=== PATIENT | male | born 1960 | race Caucasian/White ===

== ENCOUNTER 2017-08-07 14:17 | Emergency (ER) | payer OTHER ==
[2017-08-07 15:01] LABS: Absolute Lymphocytes (CBC) 1.2 K/uL (0.7-4.9); Absolute Monocytes 0.5 K/uL (0.1-1.3); Absolute Neutrophil 4.8 K/uL (1.8-8.0); Basophils % 1.2 % (0-1.3); Eosinophils % 5.9 % (0-4.4); Hematocrit 44.9 % (39.6-49.0); Lymphocytes % 17.6 % (15.3-44.8); MCH 29.1 pg (27.0-35.0); MCV 88.4 fL (80-100); Monocytes % 7.2 % (3.3-12.3); RBC Red Blood Cell Count 5.07 M/uL (4.33-5.43)
[2017-08-07 15:05] LABS: Protime INR 1.08
[2017-08-07 15:10] LABS: Bicarbonate 28 mEq/L (21-31); Glucose Level 133 mg/dL (65-120); Potassium 3.7 mEq/L (3.6-5.0); Sodium Level 135 mEq/L (135-145)
[2017-08-07 15:16] LABS: ALT/SGPT 26 IU/L (10-60); AST/SGOT 33 IU/L (10-42); Albumin 3.5 g/dL (3.2-5.5); Alkaline Phosphatase 127 IU/L (42-121); BUN Blood Urea Nitrogen 8 mg/dL (6-20); Bilirubin Direct 0.1 mg/dL (0-0.2); Bilirubin Total 1.1 mg/dL (0.3-1.2); Creatine Phosphokinase 30 IU/L (22-269); Magnesium 1.5 mg/dL (1.8-2.5); Protein, Total 8.2 g/dL (6.0-8.3)
[2017-08-07] MEDS ORDERED: NITROGLYCERIN 1 GM PKT TD ONE (15:17)
[2017-08-07] MEDS ORDERED: FUROSEMIDE 100 MG/10 ML VIAL IV ONE (15:18)
[2017-08-07 15:20] LABS: CKMB Creatine Kinase MB 0.7 ng/ml (0.3-4.0)
--- NOTE | 2017-08-07 15:35 | RAD REPORT ---
EXAM DESCRIPTION: RAD - Chest Single View - 08/07/2017 3:27 pm CLINICAL HISTORY: Shortness of breath COMPARISON: 01/11/2017 FINDINGS: Portable technique limits examination quality. The lungs are grossly clear. The heart is upper limit normal in size. No displaced fractures. IMPRESSION: No acute intrathoracic process suspected.
[2017-08-07] MEDS ORDERED: ASPIRIN 81 MG CHEWABLE TABLET ONE (15:48)
[2017-08-07] MEDS ORDERED: Magnesium Sulfate 2gm IVPB 2 G/50 ML BAG IV ONE (15:48)
[2017-08-07 17:03] LABS: Urine Blood NEGATIVE (NEG); Urine Glucose NEGATIVE (NEG); Urine Protein NEGATIVE (NEG); Urine Specific Gravity 1.015 (1.005-1.030)
[2017-08-07 17:20] LABS: Urine Bacteria <20 /HPF (NONE SEEN); Urine RBC <5 /HPF (NONE SEEN)
[2017-08-07 17:21] LABS: Urine Culture Reflex Order NOT NEEDED; Urine Mucus NS /HPF (NONE SEEN)
--- NOTE | 2017-08-07 18:14 | ER ---
Nurse's Notes [facility] Name: Juan J Lin Age: 56 yrs Sex: Male : 1960 Arrival Date: 08/07/2017 Time: 14:21 Bed 16 Private MD: Diagnosis: Urinary tract infection, site not specified;Acute on chronic combined systolic (congestive) and diastolic (congestive) heart failure Presentation: 08/07 14:21 Presenting complaint: Patient states: " I was a little SOB this morning when I woke up. ph Then we went to get some food and I started having chest pressure and the SOB got worse." Pt reports pressure in center of chest that began approx 1 hour ago, SOB and dizziness. Respirations tachypneic at 30 bpm, pt unable to speak in full sentences, hx of CHF. Transition of care: patient was not received from another setting of care. Onset of symptoms was August 07, 2017. Initial Sepsis Screen: Does the patient meet any 2 criteria? No. Patient's initial sepsis screen is negative. Does the patient have a suspected source of infection? No. Patient's initial sepsis screen is negative. Care prior to arrival: None. 14:21 Method Of Arrival: Wheelchair ph 14:21 Acuity: CHARLIE 3 ph Historical: - Allergies: 14:28 Anesthesia- combative reaction; ph - Home Meds: 14:28 atorvastatin 40 mg Oral tab 1 tab once daily [Active]; carvedilol 3.125 mg Oral tab 1 ph tab 2 times per day [Active]; diclofenac sodium 75 mg Oral TbEC 2 times per day [Active]; furosemide 40 mg Oral tab 2 tabs once daily [Active]; isosorbide mononitrate 30 mg Oral Tb24 1 tab once daily [Active]; lisinopril 5 mg Oral tab 1 tab once daily [Active]; metformin 500 mg Oral tr24 1 tab once daily [Active]; potassium chloride 20 mEq Oral TbER 1 tab once daily [Active]; spironolactone 25 mg Oral tab 1 tab once daily [Active]; Tramadol Oral [Active]; - PMHx: 14:28 cardiomegaly; CHF; Hypertension; Myocardial infarction; ph - PSHx: 14:28 Appendectomy; Cholecystectomy; Tonsillectomy; ph - Immunization history:: Adult Immunizations unknown. - Social history:: Smoking status: Patient/guardian denies using tobacco. Screenin:07 Abuse screen: Denies threats or abuse. Denies injuries from another. Nutritional ph screening: No deficits noted. Tuberculosis screening: No symptoms or risk factors identified. Fall Risk No fall in past 12 months (0 pts). No secondary diagnosis (0 pts). IV access (20 points). Ambulatory Aid- None/Bed Rest/Nurse Assist (0 pts). Gait- Weak (10 pts.). Mental Status- Oriented to own ability (0 pts). Total Prescott Fall Scale indicates Low Risk Score (25-44 pts). Fall prevention measures have been instituted. Side Rails Up X 2 Placed close to Nursing Station Frequent Obs/Assesments occuring Family Present and informed to notify staff if they need to leave bedside As available Patient and Family Educated on Fall Prevention Program and strategies. Assessment: 15:08 General: Appears in no apparent distress. uncomfortable, obese, Behavior is calm, ph cooperative, appropriate for age. Pain: Complains of pain in chest Pain does not radiate. Neuro: Level of Consciousness is awake, alert, obeys commands, Oriented to person, place, time, situation. Neuro: Reports dizziness. Cardiovascular: Reports chest pain, diaphoresis, lightheadedness, shortness of breath, Denies nausea, palpitations, vomiting, Capillary refill < 3 seconds Patient's skin is warm and dry. Edema is 4+ to left midcalf, left ankle, left foot, right midcalf, right ankle and right foot w/ anasarca noted to R leg Rhythm is sinus rhythm. Respiratory: Reports shortness of breath at rest Airway is patent Respiratory effort is even, labored, Respiratory pattern is tachypnea Breath sounds with crackles in left posterior lower lobe and right posterior lower lobe. Derm: Skin is intact, Skin is pink, warm \\T\\ dry. Musculoskeletal: Circulation, motion, and sensation intact. Range of motion: intact in all extremities, Swelling present in right leg and left leg. 16:20 Reassessment: Patient appears in no apparent distress at this time. Patient and/or ph family updated on plan of care and expected duration. Pain level reassessed. Patient is alert, oriented x 3, equal unlabored respirations, skin warm/dry/pink. Pt reports that SOB is improving, respirations decreased to 20 bpm, spo2 100% on 2 L, pt placed on oxygen for comfort. 17:30 Reassessment: Patient appears in no apparent distress at this time. Patient and/or ph family updated on plan of care and expected duration. Pain level reassessed. Patient is alert, oriented x 3, equal unlabored respirations, skin warm/dry/pink. Pt reports that chest pain and SOB have significantly improved, pt states, " I am feeling much better than when I got here. I really don't want to stay in the hospital. I'll double up on my fluid pill at home" Pt awaiting discharge. Vital Signs: 14:25 BP 160 / 71; Pulse 94; Resp 30; Temp 98.4(TE); Pulse Ox 99% on R/A; ph 15:30 BP 125 / 64; Pulse 78; Resp 16; Pulse Ox 98% on R/A; ph 16:20 BP 159 / 86; Pulse 75; Resp 20; Pulse Ox 100% on 2 lpm NC; ph 17:21 BP 126 / 77; Pulse 81; Resp 18; Pulse Ox 100% on 2 lpm NC; ph 18:30 BP 132 / 76; Pulse 78; Resp 18; Temp 98.1; Pulse Ox 98% on R/A; ph ED Course: 14:21 Patient arrived in ED. ph 14:25 Triage completed. ph 14:29 Arm band placed on. EKG completed in triage. Results shown to MD. ph 14:35 Kvng Rnadall, BREAK UP WORKER is PHCP. pm1 14:35 Joe Wang MD is Attending Physician. pm1 14:38 Initial lab(s) drawn, by me, EKG done, by ED staff, reviewed by Kvng Randall NP. jb1 Inserted saline lock: 20 gauge in left antecubital area, using aseptic technique. Blood collected. 15:07 Elaina Kamara, RN is Primary Nurse. ph 15:08 Patient has correct armband on for positive identification. Placed in gown. Bed in low ph position. Call light in reach. green end department supervisor on. Pulse ox on. NIBP on. Warm blanket given. 15:24 X-ray completed. Portable x-ray completed in exam room. Patient tolerated procedure ag1 well. 15:27 XRAY Chest (1 view) In Process Unspecified. EDMS 15:44 No provider procedures requiring assistance completed. ph 18:13 Gregorio Leong MD is Referral Physician. pm1 19:00 IV discontinued, intact, bleeding controlled, No redness/swelling at site. Pressure ph dressing applied. Administered Medications: 15:40 Drug: Lasix 80 mg Route: IVP; Site: left antecubital; ph 19:00 Follow up: Urine output 2200 ml; Response: No adverse reaction ph 16:17 Drug: Aspirin 325 mg Route: PO; ph 17:00 Follow up: Response: No adverse reaction ph 16:17 Drug: Magnesium Sulfate 2 grams Route: IVPB; Infused Over: 2 hrs; Site: left ph antecubital; 18:30 Follow up: Response: No adverse reaction; IV Status: Completed infusion ph 18:45 Drug: Rocephin 1 grams Route: IV; Rate: calculated rate; Site: left antecubital; ph 19:00 Follow up: Response: No adverse reaction; IV Status: Completed infusion ph 19:07 Not Given (Hemodynamic Parameters): Nitro-Bid Ointment 2 % 1 inches Transdermal once ph Output: 16:20 Urine: 600ml (Voided); Total: 600ml. ph 17:21 Urine: 800ml (Voided); Total: 1400ml. ph 19:00 Urine: 2200ml; Total: 3600ml. ph Outcome: 18:14 Discharge ordered by . pm1 19:08 Patient left the ED. ph 19:08 Discharged to home via wheelchair, with family. ph 19:08 Condition: improved 19:08 Discharge instructions given to patient, Instructed on discharge instructions, follow up and referral plans. medication usage, Demonstrated understanding of instructions, follow-up care, medications, Prescriptions given X 1. Addendum: 08/12/2017 07:37 Addendum: Culture Results: Positive urine culture. Positive blood culture. Bacteria is i w resistant to, has intermediate sensitivity, or is not tested against prescribed antibiotics. Report given to ONESIMO for further evaluation and then to chief knowledge officer for follow up with patient. Phone call Attempt #1 pt still having urinary symptoms, called in Augmentin 875 mg 1 tab PO BID, #20, no refills, to [facility]. Signatures: Dispatcher [employer] EDMS Yung Crowley jb1 Cherie Hurt RN RN Elaina Kamara RN RN Toshia Bryant ag1 [place], Kvng, BREAK UP WORKER BREAK UP WORKER pm1
--- NOTE | 2017-08-07 18:14 | EDPHYS ---
Physician Documentation [facility] Name: Juan J Lin Age: 56 yrs Sex: Male : 1960 Arrival Date: 08/07/2017 Time: 14:21 Bed 16 Private MD: ED Physician Joe Wang HPI: 08/07 15:00 This 56 yrs old Male presents to ER via Wheelchair with complaints of pm1 Shortness Of Breath, Chest Pain. 15:00 The patient has shortness of breath at rest. Onset: The symptoms/episode began/occurred pm1 this morning. Duration: The symptoms are continuous, and are steadily getting worse. The patient's shortness of breath is aggravated by exertion, is alleviated by nothing. Associated signs and symptoms: Pertinent positives: chest pain, Pertinent negatives: non-productive cough, productive cough, diaphoresis, dizziness, fever, nausea, vomiting. Severity of symptoms: in the emergency department the symptoms are worse. Patient with onset of shortness of breath this AM. Patient typically takes Lasix 40 mg PO BID. Patient last took his Lasix yesterday evening. Patient has noticed a twenty pound weight gain over the past two weeks. . 15:00 Patient reports chest pain onset 1 hour prior to arrival. pm1 Historical: - Allergies: 14:28 Anesthesia- combative reaction; ph - Home Meds: 14:28 atorvastatin 40 mg Oral tab 1 tab once daily [Active]; carvedilol 3.125 mg Oral tab 1 ph tab 2 times per day [Active]; diclofenac sodium 75 mg Oral TbEC 2 times per day [Active]; furosemide 40 mg Oral tab 2 tabs once daily [Active]; isosorbide mononitrate 30 mg Oral Tb24 1 tab once daily [Active]; lisinopril 5 mg Oral tab 1 tab once daily [Active]; metformin 500 mg Oral tr24 1 tab once daily [Active]; potassium chloride 20 mEq Oral TbER 1 tab once daily [Active]; spironolactone 25 mg Oral tab 1 tab once daily [Active]; Tramadol Oral [Active]; - PMHx: 14:28 cardiomegaly; CHF; Hypertension; Myocardial infarction; ph - PSHx: 14:28 Appendectomy; Cholecystectomy; Tonsillectomy; ph - Immunization history:: Adult Immunizations unknown. - Social history:: Smoking status: Patient/guardian denies using tobacco. ROS: 15:00 Constitutional: Negative for fever, chills, and weight loss, Eyes: Negative for injury, pm1 pain, redness, and discharge, ENT: Negative for injury, pain, and discharge, Neck: Negative for injury, pain, and swelling. 15:00 Abdomen/GI: Negative for abdominal pain, nausea, vomiting, diarrhea, and constipation, Back: Negative for injury and pain. 15:00 MS/Extremity: Negative for injury and deformity, Skin: Negative for injury, rash, and discoloration, Neuro: Negative for headache, weakness, numbness, tingling, and seizure. 15:00 Cardiovascular: Positive for chest pain, edema, Negative for palpitations. 15:00 Respiratory: Positive for shortness of breath, Negative for cough, sputum production, wheezing. 15:00 : Positive for burning with urination, Negative for penile pain, testicular pain Exam: 15:00 Constitutional: This is a well developed, well nourished patient who is awake, alert, pm1 and in no acute distress. Head/Face: Normocephalic, atraumatic. Eyes: Pupils equal round and reactive to light, extra-ocular motions intact. Lids and lashes normal. Conjunctiva and sclera are non-icteric and not injected. Cornea within normal limits. Periorbital areas with no swelling, redness, or edema. ENT: Nares patent. No nasal discharge, no septal abnormalities noted. Tympanic membranes are normal and external auditory canals are clear. Oropharynx with no redness, swelling, or masses, exudates, or evidence of obstruction, uvula midline. Mucous membranes moist. Neck: Trachea midline, no thyromegaly or masses palpated, and no cervical lymphadenopathy. Supple, full range of motion without nuchal rigidity, or vertebral point tenderness. No Meningismus. Chest/axilla: Normal chest wall appearance and motion. Nontender with no deformity. No lesions are appreciated. Cardiovascular: Regular rate and rhythm with a normal S1 and S2. No gallops, murmurs, or rubs. No pulse deficits. 15:00 Abdomen/GI: Soft, non-tender, with normal bowel sounds. No distension or tympany. No guarding or rebound. No evidence of tenderness throughout. Back: No spinal tenderness. No costovertebral tenderness. Full range of motion. Skin: Warm, dry with normal turgor. Normal color with no rashes, no lesions, and no evidence of cellulitis. MS/ Extremity: Pulses equal, no cyanosis. Neurovascular intact. Full, normal range of motion. 15:00 Respiratory: the patient does not display signs of respiratory distress, Respirations: no acute changes, Breath sounds: are clear throughout, no bronchial sounds, no rales, rhonchi, no wheezing. 15:00 Neuro: Orientation: is normal, Mentation: is normal, Motor: moves all fours. Vital Signs: 14:25 BP 160 / 71; Pulse 94; Resp 30; Temp 98.4(TE); Pulse Ox 99% on R/A; ph 15:30 BP 125 / 64; Pulse 78; Resp 16; Pulse Ox 98% on R/A; ph 16:20 BP 159 / 86; Pulse 75; Resp 20; Pulse Ox 100% on 2 lpm NC; ph 17:21 BP 126 / 77; Pulse 81; Resp 18; Pulse Ox 100% on 2 lpm NC; ph 18:30 BP 132 / 76; Pulse 78; Resp 18; Temp 98.1; Pulse Ox 98% on R/A; ph MDM: 14:36 Patient medically screened. pm1 17:58 Data reviewed: vital signs. pm1 18:07 Counseling: I had a detailed discussion with the patient and/or guardian regarding: the pm1 historical points, exam findings, and any diagnostic results supporting the discharge/admit diagnosis, lab results, radiology results, the need for further work-up and treatment in the hospital. 18:08 Refusal of service: The patient/guardian displays adequate decision making capability pm1 and despite a detailed discussion of alternatives, benefits, risks, and consequences refuses: Admission to the hospital for further work-up and treatment, Patient symptoms of chest pain and shortness of breath have resolved with Lasix medication. Recommended admission to the patient but he wants to go home. He said that he will return if he has any problems. Advised the patient to take additional Lasix for the next following 2-3 days and to follow up with his doctor. 08/07 14:36 Order name: Basic Metabolic Panel; Complete Time: 15:26 pm1 08/07 14:36 Order name: BNP; Complete Time: 15:26 pm1 08/07 14:36 Order name: CBC with Diff; Complete Time: 15:26 pm1 08/07 14:36 Order name: Ckmb; Complete Time: 15:26 pm08/07 14:36 Order name: CPK; Complete Time: 15:26 pm1 08/07 14:36 Order name: LFT's; Complete Time: 15:26 pm1 08/07 14:36 Order name: Magnesium; Complete Time: 15:26 pm08/07 14:36 Order name: PT-INR; Complete Time: 15:26 pm1 08/07 14:36 Order name: Ptt, Activated; Complete Time: 15:26 pm08/07 14:36 Order name: Troponin (emerg Dept Use Only); Complete Time: 15:26 pm1 08/07 14:42 Order name: Blood Culture Adult (2) jb1 08/07 16:18 Order name: Urine Culture ph 08/07 16:18 Order name: Urine Microscopic Only; Complete Time: 17:21 ph 08/07 16:26 Order name: Urine Dipstick--Ancillary (enter results); Complete Time: 17:21 eb 08/07 14:36 Order name: XRAY Chest (1 view); Complete Time: 16:13 pm1 08/07 14:36 Order name: EKG; Complete Time: 14:37 pm08/07 14:36 Order name: Cardiac monitoring; Complete Time: 14:38 pm08/07 14:36 Order name: EKG - Nurse/Tech; Complete Time: 14:38 pm08/07 14:36 Order name: IV Saline Lock; Complete Time: 14:38 pm08/07 14:36 Order name: Labs collected and sent; Complete Time: 14:38 pm08/07 14:36 Order name: O2 Per Protocol; Complete Time: 14:38 pm08/07 14:36 Order name: O2 Sat Monitoring; Complete Time: 14:38 pm08/07 14:36 Order name: Urine Dipstick-Ancillary (obtain specimen); Complete Time: 16:17 pm1 Administered Medications: 15:40 Drug: Lasix 80 mg Route: IVP; Site: left antecubital; ph 19:00 Follow up: Urine output 2200 ml; Response: No adverse reaction ph 16:17 Drug: Aspirin 325 mg Route: PO; ph 17:00 Follow up: Response: No adverse reaction ph 16:17 Drug: Magnesium Sulfate 2 grams Route: IVPB; Infused Over: 2 hrs; Site: left ph antecubital; 18:30 Follow up: Response: No adverse reaction; IV Status: Completed infusion ph 18:45 Drug: Rocephin 1 grams Route: IV; Rate: calculated rate; Site: left antecubital; ph 19:00 Follow up: Response: No adverse reaction; IV Status: Completed infusion ph 19:07 Not Given (Hemodynamic Parameters): Nitro-Bid Ointment 2 % 1 inches Transdermal once ph Disposition: 08/08 09:15 Co-signature as Attending Physician, Joe Wang MD I agree with the assessment and ivy plan of care. Disposition: 08/07/17 18:14 Discharged to Home. Impression: Acute on chronic combined systolic (congestive) and diastolic (congestive) heart failure, Urinary tract infection, site not specified. - Condition is Stable. - Discharge Instructions: Heart Failure, Urinary Tract Infection. - Prescriptions for Bactrim DS 800- 160 mg Oral Tablet - take 1 tablet by ORAL route every 12 hours for 10 days; 20 tablet. - Medication Reconciliation Form, Thank You Letter, Antibiotic Education form. - Follow up: Emergency Department; When: As needed; Reason: Worsening of condition. Follow up: Private Physician; When: 2 - 3 days; Reason: Recheck today's complaints, Continuance of care, Re-evaluation by your physician. Follow up: Gregorio Leong MD; When: 2 - 3 days; Reason: Recheck today's complaints, Continuance of care, Re-evaluation by your physician. - Problem is new. - Symptoms have improved. Signatures: Dispatcher [employer] Joe Macdonald MD MD cha Hall, Patricia, RN RN ph Kvng Randall, RICHELLE WORK CAR OPERATOR pm1
[2017-08-07] MEDS ORDERED: CEFTRIAXONE/SWI 1gm 1 GM/10 ML SYR ONE (18:47)
[2017-08-07 19:13] VITALS: TEMP 98.4
[2017-08-07 19:15] VITALS: O2SAT 100
[2017-08-07 19:17] VITALS: BP 126/77
--- NOTE | 2017-08-08 07:05 | EKG ---
Test Date: 2017-08-07 Test Time: 14:44:21 Child Care: JUAN MEASUREMENT RESULTS: Intervals: Rate: 76 NE: 156 QRSD: 86 QT: 410 QTc: 461 [place]: P: 66 NE: 156 QRS: 30 T: 39 INTERPRETIVE STATEMENTS: Normal sinus rhythm Normal ECG Compared to ECG 01/11/2017 18:40:09 Sinus tachycardia no longer present Atrial premature complex(es) no longer present ST (T wave) deviation no longer present Electronically Signed On 08-08-17 07:04:23 CDT by Gregorio Leong
== END 2017-08-07 19:08 | disposition home or self-care (01) ==
LOC: ER 14:17
DX: I50.43 Acute on chronic combined systolic (congestive) and diastolic (congestive) heart failure (principal); N39.0 Urinary tract infection, site not specified; I10 Essential (primary) hypertension; I25.2 Old myocardial infarction
CPT/HCPCS: 36415; 71045; 80048; 80076; 82550; 82553; 83735; 83880; 84484; 85025; 85610; 85730; 87040 ×2; 87077; 87086; 87088; 87186; 87205 ×2; 93005; 96365; 96366; 96375; 99285; J0696; J3475; 81003; 81015

== ENCOUNTER 2017-10-22 11:15 | Inpatient (IN) | payer OTHER ==
[2017-10-22 13:13] LABS: Absolute Lymphocytes (CBC) 1.5 K/uL (0.7-4.9); Absolute Monocytes 0.6 K/uL (0.1-1.3); Absolute Neutrophil 3.6 K/uL (1.8-8.0); Basophils % 0.8 % (0-1.3); Eosinophils % 6.7 % (0-4.4); Hematocrit 40.5 % (39.6-49.0); Lymphocytes % 24.2 % (15.3-44.8); MCH 30.6 pg (27.0-35.0); MCV 90.6 fL (80-100); MPV 9.1 fL (7.6-11.3); Monocytes % 9.3 % (3.3-12.3); RBC Red Blood Cell Count 4.47 M/uL (4.33-5.43)
[2017-10-22 13:17] LABS: Protime INR 1.12
[2017-10-22 13:31] LABS: ALT/SGPT 25 U/L (12-78); AST/SGOT 26 U/L (15-37); Albumin 2.7 g/dL (3.4-5.0); Alkaline Phosphatase 130 U/L (45-117); BUN Blood Urea Nitrogen 11 mg/dL (7-18); Bicarbonate 29 mmol/L (21-32); Bilirubin Direct 0.1 mg/dL (0-0.2); Bilirubin Total 0.5 mg/dL (0.2-1.0); Glucose Level 131 mg/dL (74-106); Lipase 130 U/L (73-393); Protein, Total 7.8 g/dL (6.4-8.2); Sodium Level 142 mmol/L (136-145)
[2017-10-22] MEDS ORDERED: FENTANYL CITR 100 MCG/2 ML ONE (13:43)
[2017-10-22] MEDS ORDERED: NA CHLORIDE 0.9% 500 ML ONE (13:43)
[2017-10-22 14:06] LABS: Urine Blood NEGATIVE (NEG); Urine Glucose NEGATIVE (NEG); Urine Protein TRACE (NEG); Urine Specific Gravity >1.030 (1.005-1.030)
--- NOTE | 2017-10-22 14:24 | ER ---
Nurse's Notes [facility] Name: Juan J Lin Age: 57 yrs Sex: Male : 1960 Arrival Date: 10/22/2017 Time: 11:19 Bed 17 Private MD: Herminio Alves R Diagnosis: Cellulitis of right lower limb Presentation: 10/22 12:04 Presenting complaint: Patient states: was discharged from [facility] 2 weeks ago for sepsis, iw had infection in right leg, pt states he has had low grade temp since yesterday and increased drainage from right leg. Transition of care: patient was not received from another setting of care. Care prior to arrival: None. 12:04 Method Of Arrival: Wheelchair iw 12:04 Acuity: CHARLIE 3 iw 12:40 Risk Assessment: Do you want to hurt yourself or someone else? Patient reports no em desire to harm self or others. Initial Sepsis Screen: Does the patient meet any 2 criteria? No. Patient's initial sepsis screen is negative. Does the patient have a suspected source of infection? No. Patient's initial sepsis screen is negative. 12:40 Onset of symptoms was October 20, 2017. em Historical: - Allergies: 12:40 Anesthesia- combative reaction; em - Home Meds: 12:40 glipizide 5 mg Oral tab [Active]; atorvastatin 40 mg Oral tab 1 tab once daily em [Active]; carvedilol 3.125 mg Oral tab 1 tab 2 times per day [Active]; diclofenac sodium 75 mg Oral TbEC 2 times per day [Active]; furosemide 40 mg Oral tab 2 tabs once daily [Active]; isosorbide mononitrate 30 mg Oral Tb24 1 tab once daily [Active]; metformin 500 mg Oral tr24 1 tab once daily [Active]; lisinopril 5 mg Oral tab 1 tab once daily [Active]; potassium chloride 20 mEq Oral TbER 1 tab once daily [Active]; spironolactone 25 mg Oral tab 1 tab once daily [Active]; Tramadol Oral [Active]; - PMHx: 12:40 cardiomegaly; CHF; Hypertension; Myocardial infarction; em - Immunization history:: Adult Immunizations up to date. - Social history:: Smoking status: Patient/guardian denies using tobacco. - Ebola Screening: : Patient negative for fever greater than or equal to 101.5 degrees Fahrenheit, and additional compatible Ebola Virus Disease symptoms Patient denies exposure to infectious person Patient denies travel to an Ebola-affected area in the 21 days before illness onset. Screenin:40 Abuse screen: Denies threats or abuse. Nutritional screening: No deficits noted. em Tuberculosis screening: No symptoms or risk factors identified. Fall Risk None identified. Assessment: 12:40 General: Appears in no apparent distress. uncomfortable, Behavior is calm, cooperative. em Pain: Complains of pain in left knee Pain currently is 10 out of 10 on a pain scale. Neuro: Level of Consciousness is awake, alert, obeys commands, Oriented to person, place, time, situation. Cardiovascular: Capillary refill is > 3 seconds Patient's skin is warm and dry. Edema is 2+ to left midcalf, left ankle, left foot, right midcalf, right ankle and right foot. Respiratory: Airway is patent Respiratory effort is even, unlabored, Respiratory pattern is regular, symmetrical. : Urine is clear. Derm: Skin is intact, Skin is normal. Musculoskeletal: Range of motion: intact in all extremities, Swelling present in right leg and left leg. 13:00 Reassessment: Patient appears in no apparent distress at this time. I agree with above iw assessment by Domingo Dubois LVN. 13:30 Reassessment: Patient appears in no apparent distress at this time. Patient and/or em family updated on plan of care and expected duration. Pain level reassessed. Patient is alert, oriented x 3, equal unlabored respirations, skin warm/dry/pink. request something for pain, GABRIEL Diaz notified. 14:30 Reassessment: Patient appears in no apparent distress at this time. Patient and/or em family updated on plan of care and expected duration. Pain level reassessed. Patient is alert, oriented x 3, equal unlabored respirations, skin warm/dry/pink. 16:24 Reassessment: Patient appears in no apparent distress at this time. Patient and/or em family updated on plan of care and expected duration. Pain level reassessed. Patient is alert, oriented x 3, equal unlabored respirations, skin warm/dry/pink. Patient states feeling better. 17:26 Reassessment: Patient appears in no apparent distress at this time. Patient and/or em family updated on plan of care and expected duration. Pain level reassessed. Patient is alert, oriented x 3, equal unlabored respirations, skin warm/dry/pink. wrapped miguel. legs with Kerlix x 3. Vital Signs: 12:05 BP 193 / 90; Pulse 99; Resp 20 S; Pulse Ox 98% on R/A; Weight 208.65 kg; Height 6 ft. iw (182.88 cm); Pain 10/10; 12:33 BP 140 / 71; Pulse 77; Resp 16; Pulse Ox 99% on R/A; Pain 10/10; em 13:00 BP 143 / 72; Pulse 82; Resp 18; Pulse Ox 96% on R/A; em 14:18 BP 141 / 68; Pulse 93; Resp 15; Pulse Ox 97% on R/A; em 15:00 BP 118 / 62; Pulse 84; Resp 16; Pulse Ox 99% on R/A; em 16:19 BP 136 / 71; Pulse 93; Resp 18; Temp 98.6; Pulse Ox 98% ; Pain 0/10; mg2 17:28 BP 150 / 51; Pulse 87; Resp 16; Pulse Ox 98% on R/A; em 12:05 Body Mass Index 62.39 (208.65 kg, 182.88 cm) iw ED Course: 11:19 Patient arrived in ED. rg4 11:19 Herminio Alves MD is Private Physician. rg4 11:41 Joe Mackay PA is PHCP. cp 11:41 Shahriar Borjas MD is Attending Physician. cp 12:05 Triage completed. iw 12:05 Cherie Hurt, RN is Primary Nurse. iw 12:05 Arm band placed on. iw 12:22 Domingo Dubois LVN is Primary Nurse. em 12:40 Patient has correct armband on for positive identification. Placed in gown. Bed in low em position. Call light in reach. Side rails up X2. 12:55 Initial lab(s) drawn, by me, sent to lab. Inserted saline lock: 20 gauge in right em antecubital area, using aseptic technique. Blood collected. 12:55 First set of blood cultures drawn by me. em 14:22 Evert Lopes MD is Hospitalizing Provider. cp 14:55 Ultrasound completed. Other: tech diff. exam . sg3 16:26 No provider procedures requiring assistance completed. em 16:47 Patient admitted, IV remains in place. em Administered Medications: 13:50 Drug: fentaNYL (PF) 50 mcg Route: IVP; Site: right antecubital; iw 16:06 Follow up: Response: No adverse reaction; Pain is decreased em 13:52 Drug: NS 0.9% 500 ml Route: IV; Rate: bolus; Site: right antecubital; em 16:06 Follow up: IV Status: Completed infusion; IV Intake: 500ml em Intake: 16:06 IV: 500ml; Total: 500ml. em Outcome: 14:23 Decision to Hospitalize by Provider. cp 16:47 Admitted to Med/surg accompanied by tech, via stretcher, room 206, with chart, Report em called to MESFIN Fritz 16:47 Condition: good 16:47 Instructed on the need for admit, Demonstrated understanding of instructions. 17:29 Patient left the ED. em Signatures: Domingo Dubois, EXPORT CLERK EXPORT CLERK em Cherie Hurt, RN RN iw Joe Mackay, PA PA Manju Hare rg4 Honey Blackwoodah sg3 Brendan Bah, RN RN mg2
--- NOTE | 2017-10-22 14:24 | EDPHYS ---
Physician Documentation [facility] Name: Juan J Lin Age: 57 yrs Sex: Male : 1960 Arrival Date: 10/22/2017 Time: 11:19 Bed 17 Private MD: Herminio Alves R ED Physician Shahriar Borjas HPI: 10/22 12:40 This 57 yrs old Male presents to ER via Wheelchair with complaints of LEG cp DISCHARGE, Fever, Weakness. 12:40 The patient presents with pain, that is chronic, swelling, tenderness, increased cp drainage from chronic wounds on right lower leg. Onset: The symptoms/episode began/occurred gradually. Associated signs and symptoms: Pertinent positives: fever, warmth. Treatment prior to arrival includes: анна wrap. Patient reports recent hospitalization 2-3 weeks ago for infection of lower extremities. Reports finishing prescribed oral antibiotic and f/u appt with pcp yesterday who recommended patient be readmitted for IV antibiotics. Historical: - Allergies: 12:40 Anesthesia- combative reaction; em - Home Meds: 12:40 glipizide 5 mg Oral tab [Active]; atorvastatin 40 mg Oral tab 1 tab once daily em [Active]; carvedilol 3.125 mg Oral tab 1 tab 2 times per day [Active]; diclofenac sodium 75 mg Oral TbEC 2 times per day [Active]; furosemide 40 mg Oral tab 2 tabs once daily [Active]; isosorbide mononitrate 30 mg Oral Tb24 1 tab once daily [Active]; metformin 500 mg Oral tr24 1 tab once daily [Active]; lisinopril 5 mg Oral tab 1 tab once daily [Active]; potassium chloride 20 mEq Oral TbER 1 tab once daily [Active]; spironolactone 25 mg Oral tab 1 tab once daily [Active]; Tramadol Oral [Active]; - PMHx: 12:40 cardiomegaly; CHF; Hypertension; Myocardial infarction; em - Immunization history:: Adult Immunizations up to date. - Social history:: Smoking status: Patient/guardian denies using tobacco. - Ebola Screening: : Patient negative for fever greater than or equal to 101.5 degrees Fahrenheit, and additional compatible Ebola Virus Disease symptoms Patient denies exposure to infectious person Patient denies travel to an Ebola-affected area in the 21 days before illness onset. ROS: 12:45 Constitutional: Negative for body aches, chills, fever, poor PO intake. cp 12:45 Eyes: Negative for injury, pain, redness, and discharge. cp 12:45 ENT: Negative for drainage from ear(s), ear pain, sore throat, difficulty swallowing, difficulty handling secretions. 12:45 Cardiovascular: Positive for edema, Negative for chest pain, palpitations. 12:45 Respiratory: Negative for cough, shortness of breath, wheezing. 12:45 Abdomen/GI: Negative for abdominal pain, nausea, vomiting, and diarrhea. 12:45 Skin: Positive for drainage from right lower leg. 12:45 Neuro: Positive for general weakness, Negative for altered mental status, headache. 12:45 All other systems are negative. Exam: 12:50 Constitutional: The patient appears in no acute distress, alert, awake, cp non-diaphoretic, non-toxic, well developed, well nourished, morbid obesity 12:50 Head/Face: Normocephalic, atraumatic. cp 12:50 Eyes: Pupils equal round and reactive to light, extra-ocular motions intact. Lids and lashes normal. Conjunctiva and sclera are non-icteric and not injected. Cornea within normal limits. Periorbital areas with no swelling, redness, or edema. ENT: Nares patent. No nasal discharge, no septal abnormalities noted. Tympanic membranes are normal and external auditory canals are clear. Oropharynx with no redness, swelling, or masses, exudates, or evidence of obstruction, uvula midline. Mucous membranes moist. Neck: Trachea midline, no thyromegaly or masses palpated, and no cervical lymphadenopathy. Supple, full range of motion without nuchal rigidity, or vertebral point tenderness. No Meningismus. 12:50 Chest/axilla: Inspection: normal, Palpation: is normal, no crepitus, no tenderness. 12:50 Cardiovascular: Rate: normal, Rhythm: regular, Edema: pedal edema, that is marked, ankle edema, that is marked, JVD: is not appreciated. 12:50 Respiratory: the patient does not display signs of respiratory distress, Respirations: normal, no use of accessory muscles, no retractions, no splinting, no tachypnea, labored breathing, is not present, Breath sounds: are clear throughout, no decreased breath sounds, no stridor, no wheezing. 12:50 Abdomen/GI: Inspection: obese Bowel sounds: active, all quadrants, Palpation: abdomen is soft and non-tender, in all quadrants, rebound tenderness, is not appreciated, voluntary guarding, is not appreciated, involuntary guarding, is not appreciated. 12:50 Back: pain, is absent, ROM is normal. 12:50 Neuro: Orientation: to person, place \T\ time. Mentation: lucid, able to follow commands, Cerebellar function: is grossly normal, Motor: moves all fours, strength is normal, Sensation: is normal. 12:50 Skin: cellulitis, that is moderate, irregular, on the right lower leg and right ankle cp and right foot, noted chronic wounds with drainage. 13:41 ECG was reviewed by the Attending Physician. cp Vital Signs: 12:05 BP 193 / 90; Pulse 99; Resp 20 S; Pulse Ox 98% on R/A; Weight 208.65 kg; Height 6 ft. iw (182.88 cm); Pain 10/10; 12:33 BP 140 / 71; Pulse 77; Resp 16; Pulse Ox 99% on R/A; Pain 10/10; em 13:00 BP 143 / 72; Pulse 82; Resp 18; Pulse Ox 96% on R/A; em 14:18 BP 141 / 68; Pulse 93; Resp 15; Pulse Ox 97% on R/A; em 15:00 BP 118 / 62; Pulse 84; Resp 16; Pulse Ox 99% on R/A; em 16:19 BP 136 / 71; Pulse 93; Resp 18; Temp 98.6; Pulse Ox 98% ; Pain 0/10; mg2 17:28 BP 150 / 51; Pulse 87; Resp 16; Pulse Ox 98% on R/A; em 12:05 Body Mass Index 62.39 (208.65 kg, 182.88 cm) iw MDM: 11:43 Patient medically screened. cp 13:00 Differential diagnosis: cellulitis, DVT, abscess, sepsis. cp 14:05 Data reviewed: vital signs, nurses notes, lab test result(s), EKG. cp 14:05 Test interpretation: by ED physician or midlevel provider: ECG. cp 14:19 Physician consultation: Evert Lopes MD was called at 14:19, was contacted at 14:19, cp regarding admission, to the medical/surgical unit. 10/22 12:36 Order name: Wound Culture: right lower leg cp 10/22 12:36 Order name: Basic Metabolic Panel; Complete Time: 13:34 cp 10/22 13:34 Interpretation: Normal except: CL 108; GLUC 131. cp 10/22 12:36 Order name: Blood Culture Adult (2) cp 10/22 12:36 Order name: CBC with Diff; Complete Time: 13:34 cp 10/22 13:35 Interpretation: Normal except: RDW 15.6; EOSINOPHIL % 6.7. cp 10/22 12:36 Order name: Lactate; Complete Time: 13:34 cp 10/22 13:35 Interpretation: LAC 1.6; Reviewed. 10/22 12:36 Order name: LFT's; Complete Time: 13:34 cp 10/22 13:34 Interpretation: Normal except: ALK 130; ALB 2.7; GLOB 5.1; A/G 0.5. 10/22 12:36 Order name: Lipase; Complete Time: 13:34 cp 10/22 12:36 Order name: Procalcitonin; Complete Time: 14:02 cp 10/22 14:02 Interpretation: Procalcitonin < 0.05; Reviewed. 10/22 12:36 Order name: Protime (+inr); Complete Time: 13:34 cp 10/22 14:03 Interpretation: Normal except: PT 13.2. cp 10/22 12:36 Order name: Ptt, Activated; Complete Time: 13:34 cp 10/22 13:55 Order name: Urine Dipstick--Ancillary (enter results); Complete Time: 14:20 ag 10/22 14:20 Interpretation: Normal except: USPGR >1.030; UESTR TRACE. cp 10/22 14:16 Order name: US Extremity Venous W Compression [place] cp 10/22 16:34 Order name: US EDMS 10/22 12:36 Order name: Accucheck; Complete Time: 14:32 cp 10/22 12:36 Order name: Cardiac monitoring; Complete Time: 13:04 cp 10/22 12:36 Order name: EKG - Nurse/Tech; Complete Time: 13:39 cp 10/22 12:36 Order name: IV Saline Lock - Large Bore; Complete Time: 13:04 cp 10/22 12:36 Order name: Labs collected and sent; Complete Time: 13:04 cp 10/22 12:36 Order name: O2 Per Protocol; Complete Time: 13:04 cp 10/22 12:36 Order name: O2 Sat Monitoring; Complete Time: 13:04 cp 10/22 12:36 Order name: Urine Dipstick-Ancillary (obtain specimen); Complete Time: 14:32 cp 10/22 16:12 Order name: Vital Signs: please update to include temp; Complete Time: 16:23 cp EC:41 Rate is 78 beats/min. Rhythm is regular. [place] interval is normal. QRS interval is normal. cp QT interval is normal. No ST changes noted. Interpreted by me. Reviewed by me. Administered Medications: 13:50 Drug: fentaNYL (PF) 50 mcg Route: IVP; Site: right antecubital; iw 16:06 Follow up: Response: No adverse reaction; Pain is decreased em 13:52 Drug: NS 0.9% 500 ml Route: IV; Rate: bolus; Site: right antecubital; em 16:06 Follow up: IV Status: Completed infusion; IV Intake: 500ml em Disposition: 10/22/17 14:23 Hospitalization ordered by Evert Lopes for Observation. Preliminary diagnosis is Cellulitis of right lower limb. - Bed requested for Telemetry/MedSurg (observation). - Status is Observation. em - Condition is Stable. - Problem is new. - Symptoms are unchanged. UTI on Admission? No Addendum: 10/30/2017 20:44 Co-signature as Attending Physician, Shahriar Borjas MD I agree with the assessment and k plan of care. Signatures: Dispatcher [employer] Yumiko Garcia RN RN Shahriar Borjas MD MD [facility] Domingo Dubois, TECHNICAL MAINTENANCE TECHNICIAN TECHNICAL MAINTENANCE TECHNICIAN em Cherie Hurt RN RN iw Joe Mackay PA PA cp Corrections: (The following items were deleted from the chart) 10/22 16:28 14:23 Hospitalization Ordered by Evert Lopes MD for Observation. Preliminary diagnosis is Cellulitis of right lower limb. Bed requested for Telemetry/MedSurg (observation). Status is Observation. Condition is Stable. Problem is new. Symptoms are unchanged. UTI on Admission? No. cp 16:30 16:28 10/22/2017 14:23 Hospitalization Ordered by Evert Lopes MD for Observation. dw Preliminary diagnosis is Cellulitis of right lower limb. Bed requested for Telemetry/MedSurg (observation). Status is Observation. Condition is Stable. Problem is new. Symptoms are unchanged. UTI on Admission? No. dw 17:29 16:30 10/22/2017 14:23 Hospitalization Ordered by Evert Lopes MD for Observation. em Preliminary diagnosis is Cellulitis of right lower limb. Bed requested for Telemetry/MedSurg (observation). Status is Observation. Condition is Stable. Problem is new. Symptoms are unchanged. UTI on Admission? No. dw
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
[2017-10-22] MEDS ORDERED: Pharmacy Consult 1 EA XX PRN (14:55)
[2017-10-22] MEDS ORDERED: SPIRONOLACTONE 25 MG TABLET PO PRN (14:56)
[2017-10-22] MEDS ORDERED: FUROSEMIDE 40 MG/4 ML VIAL IV ONE (15:03)
--- NOTE | 2017-10-22 16:34 | RAD REPORT ---
EXAM DESCRIPTION: VASExtrem Venous W Compress Bil10/22/2017 3:26 pm CLINICAL HISTORY: Bilateral leg swelling COMPARISON: December 2016 FINDINGS: The evaluation of left popliteal and posterior tibial veins is very limited secondary to b sophia habitus. The common femoral, superficial femoral, right popliteal tibial veins bilaterally are compressible a nd demonstrate augmentation. Doppler demonstrates good flow. IMPRESSION: No gross evidence evidence of deep venous thrombosis involving either lower extremity.
[2017-10-22] MEDS ORDERED: VANCOMYCIN 2 GM in NA CHLORIDE 0.9% 500 ML IVPB SCH (17:00)
[2017-10-22] MEDS ORDERED: FUROSEMIDE 40 MG TABLET PO SCH (17:00)
[2017-10-22] MEDS ORDERED: FUROSEMIDE 40 MG/4 ML VIAL ONE (17:09)
[2017-10-22] MEDS: METFORMIN HCL 500 MG TAB PO SCH (17:58)
[2017-10-22] MEDS: PIPER/TAZO/NS 4.5gm 4.5 GM/100 ML BAG IVPB SCH (17:58)
[2017-10-22] MEDS: ENOXAPARIN 40 MG/0.4 ML SQ SCH (17:59)
[2017-10-22] MEDS ORDERED: NA CHLORIDE 0.9% 250 ML IV ONE (20:00)
[2017-10-22] MEDS ORDERED: ONDANSETRON 4 MG/2 ML VIAL IV PRN (20:10)
[2017-10-22] MEDS ORDERED: METFORMIN HCL PO SCH (21:00)
[2017-10-22] MEDS: ATORVASTATIN 40 MG TAB PO SCH (21:02)
--- NOTE | 2017-10-23 00:11 | P.PN ---
Date of Service: 10/22/17 Patient apparently became nauseated, vomiting, hypotensive and diaphoretic while on vancomycin. Listed as an allergy. We will DC and we will start clindamycin pending cultures and sensitivites.
[2017-10-23] MEDS: CLINDAMYCIN PHOSPHATE 600 MG in NA CHLORIDE 0.9% 50 ML IV SCH ×3 (01:00→16:37)
[2017-10-23] MEDS: PIPER/TAZO/NS 4.5gm 4.5 GM/100 ML BAG IVPB SCH ×4 (01:12→17:36)
[2017-10-23] MEDS ORDERED: CLINDAMYCIN IV 150 MG/ML (6 mL) VIAL ONE (01:47)
[2017-10-23] MEDS ORDERED: NA CHLORIDE 0.9% 50 ML ONE (01:49)
[2017-10-23] MEDS: HYDROCODONE/APAP 5/325 MG TAB PO PRN ×2 (05:21→21:22)
[2017-10-23] MEDS: FAMOTIDINE 20 MG TAB PO SCH (08:31)
[2017-10-23] MEDS: METFORMIN HCL 500 MG TAB PO SCH ×2 (08:31→16:36)
[2017-10-23] MEDS: ISOSORBIDE MONO SR 30 MG TAB PO SCH (08:31)
[2017-10-23] MEDS: FUROSEMIDE 40 MG/4 ML VIAL IV SCH (08:32)
[2017-10-23] MEDS: ASPIRIN 81 MG CHEWABLE TABLET PO SCH (08:32)
[2017-10-23] MEDS ORDERED: LISINOPRIL 5 MG TAB PO SCH (09:00)
[2017-10-23] MEDS ORDERED: SPIRONOLACTONE 25 MG TABLET PO ONE (09:52)
--- NOTE | 2017-10-23 10:03 | P.PN ---
Subjective Date of Service: 10/23/17 Chief Complaint: Right-sided leg pain and discharge Condition stable no significant changes patient intolerant to vancomycin still having mal odor drainage from the right leg, patient in negative fluid balance Review of Systems is unable to be obtained Physical Examination - Vital Signs Temperature: 98.6 F Blood Pressure: 112/54 Pulse: 88 Respirations: 28 Pulse Ox (%): 95 - Physical Exam General: Alert, Oriented x3 HEENT: Atraumatic, Other Respiratory: Clear to auscultation bilaterally Cardiovascular: Normal S1 S2, Edema (Patient has significant lymphedema no change) Gastrointestinal: Normal bowel sounds, Soft and benign - Studies Laboratory Data (last 24 hrs) 10/22/17 12:55: PT 13.2 H, INR 1.12, APTT 26.8 10/22/17 12:55: WBC 6.2, Hgb 13.7, Hct 40.5, Plt Count 264 10/22/17 12:55: Sodium 142, Potassium 4.0, BUN 11, Creatinine 0.70, Glucose 131 H, Total Bilirubin 0.5, AST 26, ALT 25, Alkaline Phosphatase 130 H, Lipase 130 Assessment & Plan - Problems (Diagnosis) (1) Cellulitis Current Visit: No Status: Acute Plan: Patient is 57 years of age admitted with cellulitis and lymphedema continue with IV Lasix spironolactone antibiotics cultures are pending vital signs are all stable labs reviewed med list reconciled Qualifiers: Site of cellulitis: extremity Laterality: right
--- NOTE | 2017-10-23 10:56 | EKG ---
Test Date: 2017-10-22 Test Time: 13:34:37 Clinical Case Manager: ALHAJI MEASUREMENT RESULTS: Intervals: Rate: 78 TX: 150 QRSD: 90 QT: 412 QTc: 469 [place]: P: 59 TX: 150 QRS: 25 T: 45 INTERPRETIVE STATEMENTS: Normal sinus rhythm Normal ECG Compared to ECG 08/07/2017 14:44:21 No significant changes Electronically Signed On 10-23-17 10:55:21 CDT by Gregorio Leong
--- NOTE | 2017-10-23 12:02 | RAD REPORT ---
EXAM DESCRIPTION: RAD - Chest Single View - 10/23/2017 6:12 am CLINICAL HISTORY: chf Chest pain. COMPARISON: Chest Single View dated 08/07/2017; Chest Single View dated 01/11/2017; CHEST SINGLE VIEW dated 01/01/2008 FINDINGS: Portable technique limits examination quality. Moderate bilateral pulmonary opacities are seen likely representing pulmonary edema. The heart is mod erately enlarged. No displaced fractures. IMPRESSION: Moderate CHF/ volume overload pattern.
[2017-10-23] MEDS: PREGABALIN 75 MG CAP PO SCH ×2 (14:56→21:22)
[2017-10-23 15:08] LABS: Hematocrit 37.9 % (39.6-49.0); MCH 30.9 pg (27.0-35.0); MPV 9.2 fL (7.6-11.3); RBC Red Blood Cell Count 4.21 M/uL (4.33-5.43)
[2017-10-23 15:20] LABS: Potassium 3.7 mmol/L (3.5-5.1)
--- NOTE | 2017-10-23 16:28 | RAD REPORT ---
EXAM DESCRIPTION: RAD - Knee Left 2 View - 10/23/2017 3:27 pm CLINICAL HISTORY: fall Pain and swelling. COMPARISON: No comparisons FINDINGS: Soft tissue edema throughout the leg seen. No acute fracture or dislocation appreciated. S mall patellar spurs seen. No intra-articular joint fluid.
[2017-10-23] MEDS: glipiZIDE 5 MG TAB PO SCH (16:36)
[2017-10-23] MEDS: ENOXAPARIN 40 MG/0.4 ML SQ SCH (17:36)
[2017-10-23] MEDS: SPIRONOLACTONE 25 MG TABLET PO SCH (21:21)
[2017-10-23] MEDS: ATORVASTATIN 40 MG TAB PO SCH (21:21)
[2017-10-24] MEDS: PIPER/TAZO/NS 4.5gm 4.5 GM/100 ML BAG IVPB SCH ×4 (00:16→17:48)
[2017-10-24] MEDS: CLINDAMYCIN PHOSPHATE 600 MG in NA CHLORIDE 0.9% 50 ML IV SCH (00:16)
[2017-10-24] MEDS: glipiZIDE 5 MG TAB PO SCH (08:00)
[2017-10-24] MEDS ORDERED: LISINOPRIL 20 MG TAB PO SCH (09:00)
[2017-10-24] MEDS: FUROSEMIDE 40 MG/4 ML VIAL IV SCH ×3 (09:00→21:44)
--- NOTE | 2017-10-24 09:48 | P.PN ---
Subjective Date of Service: 10/24/17 Primary Care Provider: Dr. Neville Chief Complaint: Right-sided leg pain and discharge Subjective: Other (Patient with pain to the lower extremities. Patient fell this past weekend.) Physical Examination - Vital Signs Temperature: 97 F Blood Pressure: 106/54 Pulse: 63 Respirations: 22 Pulse Ox (%): 96 - Physical Exam General: Alert, In no apparent distress, Oriented x3, Cooperative HEENT: Atraumatic Neck: Supple Respiratory: Crackles/rales (Mild crackles to the bases), Other (Nasal cannula in place) Cardiovascular: Normal pulses, Regular rate/rhythm Gastrointestinal: Normal bowel sounds, Soft and benign, Non-distended, No tenderness, No masses, No rebound, No guarding, Other (Morbid obesity) Musculoskeletal: No contractures, Other (Patient reported some mild pain to the left knee.) Integumentary: Other (Chronic lymphedema to the lower extremities bilateral. Erythema noted to the right lower extremity. Malodorous odor noted. Patient morbidly obese.) Neurological: Normal speech, Normal strength at 5/5 x4 extr, Normal tone, Normal affect - Studies Microbiology Data (last 24 hrs): 10/22/17 13:00 Wound - Other Gram Stain - Final 10/22/17 13:00 Wound - Other Culture & Sensitivity - Final Klebsiella Pneumoniae Pseudomonas Aeruginosa Medications List Reviewed: Yes Assessment & Plan - Problems (Diagnosis) (1) COPD (chronic obstructive pulmonary disease) Current Visit: Yes Status: Chronic Plan: Will wean off oxygen. Will provide COPD medication. Qualifiers: COPD type: chronic bronchitis Chronic bronchitis type: unspecified Qualified Code(s): J42 - Unspecified chronic bronchitis (2) CHF (congestive heart failure) Current Visit: Yes Status: Acute Plan: Acute on chronic CHF. Will continue with diuretic therapy. Will adjust IV Lasix. Patient also on Aldactone. Will monitor input and output closely. Will weigh daily. May need to make further adjustments to medications. Will wean off oxygen. Qualifiers: Heart failure type: diastolic Heart failure chronicity: acute on chronic Qualified Code(s): I50.33 - Acute on chronic diastolic (congestive) heart failure (3) Cellulitis Onset Date: 10/24/17 Current Visit: Yes Status: Acute Plan: Right lower extremity cellulitis noted. Patient with also chronic lymphedema. Malodorous smell noted. Will have wound therapy consulted for aggressive wound care. Patient is morbidly obese. Wound culture positive for Klebsiella pneumoniae and Pseudomonas aeruginosa. Patient had a reaction to vancomycin over the weekend. This was discontinued. Patient currently on Zosyn. Will discontinue clindamycin due to current wound cultures. Will continue with Zosyn IV. Patient will likely need long-term IV antibiotic therapy possibly for up to 2-4 weeks. Infectious disease consulted. Patient will require aggressive wound care. Will recommend long-term acute care facility placement for IV antibiotic therapy, aggressive wound care therapy and lymphedema evaluation/treatment. Patient requires at least 3 people for dressing changes. Because of his morbid obesity wound care will be difficult to do at a skilled facility. Patient may also require hyperbaric treatment. Will discuss with social work associate for transfer to long-term acute care facility. Qualifiers: Site of cellulitis: extremity Laterality: right (4) Chronic acquired lymphedema Onset Date: 01/12/17 Current Visit: No Status: Chronic Plan: Patient will require lymphedema treatment. Continue with diuretic therapy. Will place on fluid restriction. (5) Hyperlipidemia Current Visit: No Status: Chronic Plan: Continue home medication. Qualifiers: Hyperlipidemia type: unspecified Qualified Code(s): E78.5 - Hyperlipidemia , unspecified (6) Hypertension Onset Date: 01/12/17 Current Visit: No Status: Chronic Plan: Continue home medication. Will monitor and adjust appropriately. Qualifiers: Hypertension type: essential hypertension Qualified Code(s): I10 - Essential (primary) hypertension (7) Morbid obesity Onset Date: 01/12/17 Current Visit: No Status: Chronic Plan: Lifestyle modification education provided. (8) Obesity hypoventilation syndrome Onset Date: 01/12/17 Current Visit: No Status: Chronic Plan: Will wean off oxygen. (9) Type 2 diabetes mellitus Onset Date: 01/12/17 Current Visit: No Status: Chronic Plan: Last A1c 6.1. Will recheck A1c. Will provide a sliding scale. Will discontinue glipizide due to risk of hypoglycemia. Will continue with metformin. Qualifiers: Diabetes mellitus fpc insulin use: without fpc use Diabetes mellitus complication status: with skin complications Diabetes mellitus complication detail: with other skin complication Qualified Code(s): E11.628 - Type 2 diabetes mellitus with other skin complications (10) Left knee pain Current Visit: Yes Status: Acute Plan: X-ray shows no fracture. Will monitor closely. Will physical therapy evaluate. Qualifiers: Chronicity: acute Qualified Code(s): M25.562 - Pain in left knee (11) Diabetic neuropathy Current Visit: Yes Status: Chronic Plan: Continue with medication. Qualifiers: Diabetes mellitus type: type 2 Diabetes mellitus complication detail: diabetic polyneuropathy Qualified Code(s): E11.42 - Type 2 diabetes mellitus with diabetic polyneuropathy (12) GERD (gastroesophageal reflux disease) Current Visit: Yes Status: Chronic Plan: Continue with medication. Qualifiers: Esophagitis presence: esophagitis presence not specified Qualified Code(s) : K21.9 - Gastro-esophageal reflux disease without esophagitis Discharge Plan: LTAC Plan to discharge in: 24 Hours - Code Status/Comfort Care Code Status Assessed: Yes (Patient full code.) Code Status: Full Code Time Spent Managing Pts Care (In Minutes): 55
[2017-10-24] MEDS ORDERED: IPRATROPIUM BROM 0.5MG/2.5ML NEB PRN ×2 (09:53→14:00)
[2017-10-24] MEDS ORDERED: ALBUTEROL 2.5 MG/3 ML NEB SOL NEB PRN ×2 (09:53→14:00)
[2017-10-24] MEDS: PREGABALIN 75 MG CAP PO SCH ×3 (10:00→21:42)
[2017-10-24] MEDS: METFORMIN HCL 500 MG TAB PO SCH ×2 (10:01→17:44)
[2017-10-24] MEDS: ASPIRIN 81 MG CHEWABLE TABLET PO SCH (10:01)
[2017-10-24] MEDS: FAMOTIDINE 20 MG TAB PO SCH (10:02)
[2017-10-24] MEDS: SPIRONOLACTONE 25 MG TABLET PO SCH ×2 (10:02→21:44)
[2017-10-24] MEDS: ISOSORBIDE MONO SR 30 MG TAB PO SCH (10:57)
[2017-10-24] MEDS: LISINOPRIL 20 MG TAB PO SCH (10:58)
[2017-10-24 11:30] LABS: Thyroid Stimulating Hormone 2.92 uIU/mL (0.36-3.74)
[2017-10-24 15:11] LABS: Hematocrit 36.2 % (39.6-49.0); MCH 30.3 pg (27.0-35.0); MCV 90.1 fL (80-100); MPV 9.5 fL (7.6-11.3); RBC Red Blood Cell Count 4.02 M/uL (4.33-5.43)
[2017-10-24 15:13] LABS: Potassium 3.8 mmol/L (3.5-5.1)
[2017-10-24] MEDS ORDERED: POTASSIUM 25 MEQ EFFERV TAB PO ONE (17:00)
[2017-10-24] MEDS: ENOXAPARIN 40 MG/0.4 ML SQ SCH (17:43)
[2017-10-24] MEDS: ARFORMOTEROL TARTRATE 15 MCG/2 ML VIAL.NEB NEB SCH (19:52)
[2017-10-24] MEDS: HYDROCODONE/APAP 5/325 MG TAB PO PRN (21:43)
[2017-10-24] MEDS: ATORVASTATIN 40 MG TAB PO SCH (21:44)
[2017-10-25] MEDS: PIPER/TAZO/NS 4.5gm 4.5 GM/100 ML BAG IVPB SCH ×4 (00:49→18:06)
[2017-10-25 05:51] LABS: Absolute Lymphocytes (CBC) 1.5 K/uL (0.7-4.9); Absolute Monocytes 0.6 K/uL (0.1-1.3); Absolute Neutrophil 3.9 K/uL (1.8-8.0); Basophils % 0.9 % (0-1.3); Eosinophils % 9.4 % (0-4.4); Hematocrit 36.2 % (39.6-49.0); MCH 30.3 pg (27.0-35.0); MCV 90.3 fL (80-100); MPV 9.5 fL (7.6-11.3); Monocytes % 8.9 % (3.3-12.3); RBC Red Blood Cell Count 4.01 M/uL (4.33-5.43)
[2017-10-25 05:58] LABS: BUN Blood Urea Nitrogen 15 mg/dL (7-18); Bicarbonate 33 mmol/L (21-32); Glucose Level 113 mg/dL (74-106); Potassium 3.7 mmol/L (3.5-5.1); Sodium Level 141 mmol/L (136-145)
[2017-10-25 05:59] LABS: Magnesium 1.9 mg/dL (1.8-2.4)
[2017-10-25] MEDS ORDERED: POTASSIUM 25 MEQ EFFERV TAB PO ONE (06:13)
[2017-10-25] MEDS: ARFORMOTEROL TARTRATE 15 MCG/2 ML VIAL.NEB NEB SCH ×2 (08:00→20:30)
--- NOTE | 2017-10-25 09:45 | P.PN ---
Subjective Date of Service: 10/25/17 Primary Care Provider: Dr. Neville Chief Complaint: Right-sided leg pain and discharge Subjective: Improving Physical Examination - Vital Signs Temperature: 97.0 F Blood Pressure: 133/68 Pulse: 73 Respirations: 20 Pulse Ox (%): 96 - Physical Exam General: Alert, In no apparent distress, Oriented x3, Cooperative HEENT: Atraumatic Neck: Supple Respiratory: Clear to auscultation bilaterally, Normal air movement Cardiovascular: Normal pulses, Regular rate/rhythm Gastrointestinal: Normal bowel sounds, Soft and benign, Non-distended, No masses , No rebound, No guarding Integumentary: Other (Lymphedema noted to the lower extremities. Wrappings in place.) Neurological: Normal speech, Normal strength at 5/5 x4 extr, Normal tone, Normal affect - Studies Microbiology Data (last 24 hrs): 10/22/17 13:00 Wound - Other Gram Stain - Final 10/22/17 13:00 Wound - Other Culture & Sensitivity - Final Klebsiella Pneumoniae Pseudomonas Aeruginosa Medications List Reviewed: Yes Assessment & Plan - Problems (Diagnosis) (1) COPD (chronic obstructive pulmonary disease) Current Visit: Yes Status: Chronic Plan: Will wean off oxygen. Will provide COPD medication. Qualifiers: COPD type: chronic bronchitis Chronic bronchitis type: unspecified Qualified Code(s): J42 - Unspecified chronic bronchitis (2) CHF (congestive heart failure) Current Visit: Yes Status: Acute Plan: Acute on chronic CHF. Will continue with diuretic therapy. Continue with diuretic therapy. Patient on Lasix and Aldactone. Will need to monitor weight closely. Awaiting approval for the patient to go to a long-term care facility placement for aggressive wound care and IV antibiotic therapy. Qualifiers: Heart failure type: diastolic Heart failure chronicity: acute on chronic Qualified Code(s): I50.33 - Acute on chronic diastolic (congestive) heart failure (3) Cellulitis Onset Date: 10/24/17 Current Visit: Yes Status: Acute Plan: Right lower extremity cellulitis noted. Patient with also chronic lymphedema. Continue wound therapy. Spoke with wound care yesterday. Patient needs aggressive wound care. Patient requires at least 3 individuals to help with wound care changes. Patient morbidly obese. Wound culture positive for Klebsiella pneumoniae and Pseudomonas aeruginosa. Patient currently on Zosyn. Patient will likely need long-term IV antibiotic therapy possibly for up to 2- 4 weeks. Infectious disease consulted but will not be available until Tuesday. Will recommend long-term acute care facility placement for IV antibiotic therapy, aggressive wound care therapy and lymphedema evaluation/ treatment. Patient requires at least 3 people for dressing changes. Because of his morbid obesity wound care will be difficult to do at a skilled facility. Patient may also require hyperbaric treatment. Care discussed with his PCP will also recommends long-term acute care facility placement. Patient has failed outpatient treatment with home health. PCP will discuss with insurance. Qualifiers: Site of cellulitis: extremity Laterality: right (4) Chronic acquired lymphedema Onset Date: 01/12/17 Current Visit: No Status: Chronic Plan: Patient will require lymphedema treatment. Continue with diuretic therapy and fluid restriction. (5) Hyperlipidemia Current Visit: No Status: Chronic Plan: Continue home medication. Qualifiers: Hyperlipidemia type: unspecified Qualified Code(s): E78.5 - Hyperlipidemia , unspecified (6) Hypertension Onset Date: 01/12/17 Current Visit: No Status: Chronic Plan: Continue home medication. Will monitor and adjust appropriately. Qualifiers: Hypertension type: essential hypertension Qualified Code(s): I10 - Essential (primary) hypertension (7) Morbid obesity Onset Date: 01/12/17 Current Visit: No Status: Chronic Plan: Lifestyle modification education provided. (8) Obesity hypoventilation syndrome Onset Date: 01/12/17 Current Visit: No Status: Chronic Plan: Will wean off oxygen. (9) Type 2 diabetes mellitus Onset Date: 01/12/17 Current Visit: No Status: Chronic Plan: Last A1c 6.1. Now A1c 8.1. Will provide a sliding scale. Continue with metformin. Qualifiers: Diabetes mellitus termite exterminator insulin use: without termite exterminator use Diabetes mellitus complication status: with skin complications Diabetes mellitus complication detail: with other skin complication Qualified Code(s): E11.628 - Type 2 diabetes mellitus with other skin complications (10) Left knee pain Current Visit: Yes Status: Acute Plan: X-ray shows no fracture. Will monitor closely. Will physical therapy evaluate. Qualifiers: Chronicity: acute Qualified Code(s): M25.562 - Pain in left knee (11) Diabetic neuropathy Current Visit: Yes Status: Chronic Plan: Continue with medication. Qualifiers: Diabetes mellitus type: type 2 Diabetes mellitus complication detail: diabetic polyneuropathy Qualified Code(s): E11.42 - Type 2 diabetes mellitus with diabetic polyneuropathy (12) GERD (gastroesophageal reflux disease) Current Visit: Yes Status: Chronic Plan: Continue with medication. Qualifiers: Esophagitis presence: esophagitis presence not specified Qualified Code(s) : K21.9 - Gastro-esophageal reflux disease without esophagitis (13) Anemia Current Visit: Yes Status: Chronic Plan: Likely of chronic disease. Will monitor closely. Qualifiers: Anemia type: other cause Other causes of anemia: chronic disease, other Qualified Code(s): D63.8 - Anemia in other chronic diseases classified elsewhere Discharge Plan: LTAC Plan to discharge in: 24 Hours Time Spent Managing Pts Care (In Minutes): 55
[2017-10-25] MEDS: PREGABALIN 75 MG CAP PO SCH ×3 (10:34→21:18)
[2017-10-25] MEDS: METFORMIN HCL 500 MG TAB PO SCH ×2 (10:34→18:06)
[2017-10-25] MEDS: ASPIRIN 81 MG CHEWABLE TABLET PO SCH (10:35)
[2017-10-25] MEDS: FAMOTIDINE 20 MG TAB PO SCH (10:35)
[2017-10-25] MEDS: ISOSORBIDE MONO SR 30 MG TAB PO SCH (10:35)
[2017-10-25] MEDS: SPIRONOLACTONE 25 MG TABLET PO SCH ×2 (10:35→21:19)
[2017-10-25] MEDS: LISINOPRIL 20 MG TAB PO SCH (10:36)
[2017-10-25] MEDS: FUROSEMIDE 40 MG/4 ML VIAL IV SCH ×2 (10:36→21:00)
[2017-10-25] MEDS: COLLAGENASE 30 GM OINTMENT TOP SCH (10:37)
[2017-10-25] MEDS: HYDROCODONE/APAP 5/325 MG TAB PO PRN ×3 (10:48→21:19)
[2017-10-25] MEDS: ENOXAPARIN 40 MG/0.4 ML SQ SCH (18:12)
[2017-10-25] MEDS: ATORVASTATIN 40 MG TAB PO SCH (21:18)
[2017-10-25] MEDS ORDERED: NA CHLORIDE 0.9% 100 ML ONE (23:53)
[2017-10-26 05:17] LABS: Absolute Lymphocytes (CBC) 1.3 K/uL (0.7-4.9); Absolute Monocytes 0.5 K/uL (0.1-1.3); Absolute Neutrophil 3.6 K/uL (1.8-8.0); Basophils % 0.7 % (0-1.3); Eosinophils % 8.2 % (0-4.4); Lymphocytes % 22.6 % (15.3-44.8); MCH 30.7 pg (27.0-35.0); MCV 89.9 fL (80-100); MPV 9.4 fL (7.6-11.3); Monocytes % 8.4 % (3.3-12.3)
[2017-10-26 05:32] LABS: BUN Blood Urea Nitrogen 16 mg/dL (7-18); Bicarbonate 30 mmol/L (21-32); Glucose Level 103 mg/dL (74-106); Magnesium 1.7 mg/dL (1.8-2.4); Potassium 3.7 mmol/L (3.5-5.1); Sodium Level 142 mmol/L (136-145)
[2017-10-26] MEDS ORDERED: MAGNESIUM SULFATE 1 gm IVPB 1 GM/100 ML BAG IV ONE (05:35)
[2017-10-26] MEDS ORDERED: POTASSIUM CL SA 10 MEQ TAB PO ONE (05:36)
[2017-10-26] MEDS: PIPER/TAZO/NS 4.5gm 4.5 GM/100 ML BAG IVPB SCH ×5 (06:15→23:49)
[2017-10-26] MEDS: FUROSEMIDE 40 MG/4 ML VIAL IV SCH ×2 (06:16→18:07)
[2017-10-26] MEDS: ARFORMOTEROL TARTRATE 15 MCG/2 ML VIAL.NEB NEB SCH ×2 (07:50→19:47)
[2017-10-26] MEDS: COLLAGENASE 30 GM OINTMENT TOP SCH (09:00)
[2017-10-26] MEDS ORDERED: Magnesium Sulfate 1gm IVPB 1 GM/50 ML BAG IV ONE (09:45)
[2017-10-26] MEDS: PREGABALIN 75 MG CAP PO SCH ×3 (10:04→22:21)
[2017-10-26] MEDS: METFORMIN HCL 500 MG TAB PO SCH ×2 (10:04→18:07)
[2017-10-26] MEDS: FAMOTIDINE 20 MG TAB PO SCH (10:04)
[2017-10-26] MEDS: ASPIRIN 81 MG CHEWABLE TABLET PO SCH (10:04)
[2017-10-26] MEDS: ISOSORBIDE MONO SR 30 MG TAB PO SCH (10:05)
[2017-10-26] MEDS: SPIRONOLACTONE 25 MG TABLET PO SCH ×2 (10:05→22:20)
[2017-10-26] MEDS: LISINOPRIL 20 MG TAB PO SCH (10:05)
[2017-10-26] MEDS: HYDROCODONE/APAP 5/325 MG TAB PO PRN ×3 (10:09→22:20)
--- NOTE | 2017-10-26 11:13 | P.PN ---
Subjective Date of Service: 10/26/17 Primary Care Provider: Dr. Neville Chief Complaint: Right-sided leg pain and discharge Subjective: Improving (Patient doing better.) Physical Examination - Vital Signs Temperature: 97.4 F Blood Pressure: 176/75 Pulse: 76 Respirations: 20 Pulse Ox (%): 94 - Physical Exam General: Alert, In no apparent distress, Oriented x3, Cooperative HEENT: Atraumatic Neck: Supple Respiratory: Clear to auscultation bilaterally, Normal air movement Cardiovascular: Normal pulses, Regular rate/rhythm Gastrointestinal: Normal bowel sounds, Soft and benign, Non-distended, No tenderness, No masses, No rebound, No guarding, Other (Morbid obesity) Musculoskeletal: No tenderness, No warmth Integumentary: Other (Erythema to the lower extremities improved. Patient with chronic lymphedema.) Neurological: Normal speech, Normal strength at 5/5 x4 extr, Normal tone, Normal affect - Studies Medications List Reviewed: Yes Assessment & Plan - Problems (Diagnosis) (1) COPD (chronic obstructive pulmonary disease) Current Visit: Yes Status: Chronic Plan: Will wean off oxygen. Will provide COPD medication. Patient stable this time. Patient on nasal cannula. Qualifiers: COPD type: chronic bronchitis Chronic bronchitis type: unspecified Qualified Code(s): J42 - Unspecified chronic bronchitis (2) CHF (congestive heart failure) Current Visit: Yes Status: Acute Plan: Acute on chronic CHF. Will continue with diuretic therapy. Continue with diuretic therapy. Patient on Lasix and Aldactone. Will need to monitor weight closely. Original weight 460 now down to 430. Will continue with fluid restriction. Awaiting approval for the patient to go to a long-term care facility placement for aggressive wound care and IV antibiotic therapy. Qualifiers: Heart failure type: diastolic Heart failure chronicity: acute on chronic Qualified Code(s): I50.33 - Acute on chronic diastolic (congestive) heart failure (3) Cellulitis Onset Date: 10/24/17 Current Visit: Yes Status: Acute Plan: Right lower extremity cellulitis noted. This has improved with wound care and IV antibiotic therapy. Patient with also chronic lymphedema. Spoke with wound care yesterday. Patient continues to need aggressive wound care. Patient requires at least 3 individuals to help with wound care changes. Patient morbidly obese. Wound culture positive for Klebsiella pneumoniae and Pseudomonas aeruginosa. Patient currently on Zosyn. Patient will likely need long-term IV antibiotic therapy possibly for up to 2-4 weeks. Infectious disease consulted but will not be available until Tuesday. Will recommend long- term acute care facility placement for IV antibiotic therapy, aggressive wound care therapy and lymphedema evaluation/treatment. Because of his morbid obesity wound care will be difficult to do at a skilled facility. Patient has felt home health and outpatient therapy. Care discussed with his PCP who also recommends long-term acute care facility placement. PCP will discuss with insurance. Await approval for long-term acute care facility placement Qualifiers: Site of cellulitis: extremity Laterality: right (4) Chronic acquired lymphedema Onset Date: 01/12/17 Current Visit: No Status: Chronic Plan: Patient will require lymphedema treatment. Continue with diuretic therapy and fluid restriction. (5) Hyperlipidemia Current Visit: No Status: Chronic Plan: Continue home medication. Qualifiers: Hyperlipidemia type: unspecified Qualified Code(s): E78.5 - Hyperlipidemia , unspecified (6) Hypertension Onset Date: 01/12/17 Current Visit: No Status: Chronic Plan: Continue home medication. Will monitor and adjust appropriately. Qualifiers: Hypertension type: essential hypertension Qualified Code(s): I10 - Essential (primary) hypertension (7) Morbid obesity Onset Date: 01/12/17 Current Visit: No Status: Chronic Plan: Lifestyle modification education provided. (8) Obesity hypoventilation syndrome Onset Date: 01/12/17 Current Visit: No Status: Chronic Plan: Will wean off oxygen. (9) Type 2 diabetes mellitus Onset Date: 01/12/17 Current Visit: No Status: Chronic Plan: Last A1c 6.1. Now A1c 8.1. Will provide a sliding scale. Continue with metformin. Qualifiers: Diabetes mellitus prison insulin use: without prison use Diabetes mellitus complication status: with skin complications Diabetes mellitus complication detail: with other skin complication Qualified Code(s): E11.628 - Type 2 diabetes mellitus with other skin complications (10) Left knee pain Current Visit: Yes Status: Acute Plan: X-ray shows no fracture. Will monitor closely. Will physical therapy evaluate. Qualifiers: Chronicity: acute Qualified Code(s): M25.562 - Pain in left knee (11) Diabetic neuropathy Current Visit: Yes Status: Chronic Plan: Continue with medication. Qualifiers: Diabetes mellitus type: type 2 Diabetes mellitus complication detail: diabetic polyneuropathy Qualified Code(s): E11.42 - Type 2 diabetes mellitus with diabetic polyneuropathy (12) GERD (gastroesophageal reflux disease) Current Visit: Yes Status: Chronic Plan: Continue with medication. Qualifiers: Esophagitis presence: esophagitis presence not specified Qualified Code(s) : K21.9 - Gastro-esophageal reflux disease without esophagitis (13) Anemia Current Visit: Yes Status: Chronic Plan: Likely of chronic disease. Will monitor closely. Qualifiers: Anemia type: other cause Other causes of anemia: chronic disease, other Qualified Code(s): D63.8 - Anemia in other chronic diseases classified elsewhere Discharge Plan: LTAC Plan to discharge in: 24 Hours Time Spent Managing Pts Care (In Minutes): 55
[2017-10-26] MEDS: ENOXAPARIN 40 MG/0.4 ML SQ SCH (18:07)
[2017-10-26] MEDS: ATORVASTATIN 40 MG TAB PO SCH (22:21)
[2017-10-27] MEDS: PIPER/TAZO/NS 4.5gm 4.5 GM/100 ML BAG IVPB SCH ×4 (05:55→23:58)
[2017-10-27] MEDS: FUROSEMIDE 40 MG/4 ML VIAL IV SCH ×2 (05:55→17:35)
[2017-10-27 06:21] LABS: Absolute Lymphocytes (CBC) 1.7 K/uL (0.7-4.9); Absolute Monocytes 0.6 K/uL (0.1-1.3); Absolute Neutrophil 3.5 K/uL (1.8-8.0); Eosinophils % 6.6 % (0-4.4); Hematocrit 37.4 % (39.6-49.0); MCH 31.1 pg (27.0-35.0); MCV 89.6 fL (80-100); MPV 9.6 fL (7.6-11.3); Monocytes % 8.8 % (3.3-12.3); RBC Red Blood Cell Count 4.18 M/uL (4.33-5.43)
[2017-10-27 06:25] LABS: BUN Blood Urea Nitrogen 14 mg/dL (7-18); Bicarbonate 32 mmol/L (21-32); Glucose Level 103 mg/dL (74-106); Potassium 3.7 mmol/L (3.5-5.1); Sodium Level 142 mmol/L (136-145)
[2017-10-27] MEDS ORDERED: POTASSIUM CL SA 10 MEQ TAB PO ONE (06:34)
[2017-10-27] MEDS: ARFORMOTEROL TARTRATE 15 MCG/2 ML VIAL.NEB NEB SCH ×2 (08:01→19:50)
[2017-10-27] MEDS: COLLAGENASE 30 GM OINTMENT TOP SCH (09:00)
[2017-10-27] MEDS: SPIRONOLACTONE 25 MG TABLET PO SCH ×2 (09:02→20:40)
[2017-10-27] MEDS: PREGABALIN 75 MG CAP PO SCH ×3 (09:02→20:40)
[2017-10-27] MEDS: ISOSORBIDE MONO SR 30 MG TAB PO SCH (09:02)
[2017-10-27] MEDS: METFORMIN HCL 500 MG TAB PO SCH ×2 (09:02→17:35)
[2017-10-27] MEDS: ASPIRIN 81 MG CHEWABLE TABLET PO SCH (09:02)
[2017-10-27] MEDS: LISINOPRIL 20 MG TAB PO SCH (09:02)
[2017-10-27] MEDS: FAMOTIDINE 20 MG TAB PO SCH (09:02)
[2017-10-27] MEDS: HYDROCODONE/APAP 5/325 MG TAB PO PRN ×2 (09:05→20:39)
--- NOTE | 2017-10-27 10:24 | P.PN ---
Subjective Date of Service: 10/27/17 Primary Care Provider: Dr. Neville Chief Complaint: Right-sided leg pain and discharge Subjective: Other (Patient doing well this time. Lower extremity edema and erythema improved.) Physical Examination - Vital Signs Temperature: 97.2 F Blood Pressure: 175/83 Pulse: 80 Respirations: 18 Pulse Ox (%): 97 - Physical Exam General: Alert, In no apparent distress, Oriented x3, Cooperative HEENT: Atraumatic Neck: Supple Respiratory: Clear to auscultation bilaterally, Normal air movement Cardiovascular: Normal pulses, Regular rate/rhythm Gastrointestinal: Normal bowel sounds, Soft and benign, Non-distended, No tenderness, No masses, No rebound, No guarding, Other (Morbid obesity noted) Musculoskeletal: Other (Edema to the lower extremities significantly improved. Still 1+ pitting edema to the lower extremities.) Integumentary: Other (Erythema noted to the lower extremities. Cellulitis improving she with chronic lymphedema.) Neurological: Normal speech, Normal strength at 5/5 x4 extr, Normal tone, Normal affect - Studies Medications List Reviewed: Yes Assessment & Plan - Problems (Diagnosis) (1) COPD (chronic obstructive pulmonary disease) Current Visit: Yes Status: Chronic Plan: Will continue to wean off oxygen. Continue with COPD medication. Awaiting placement for long-term acute care facility to continue IV antibiotic therapy long-term and aggressive wound care. Patient is over 400 lb. Patient requires at least 3 people to help with wound care. This cannot be done at a skilled facility or at home. Will have a peer to peer discussion with the insurance medical office administrator to approval long-term acute care facility placement. Patient currently on Zosyn 4.5 g IV Q 6 hr. Patient currently is also on Lasix 40 mg IV b.i.d. wound culture positive for Klebsiella and Pseudomonas. I will turn the service over to tomorrow. I will go over the plan of care with her. Qualifiers: COPD type: chronic bronchitis Chronic bronchitis type: unspecified Qualified Code(s): J42 - Unspecified chronic bronchitis (2) CHF (congestive heart failure) Current Visit: Yes Status: Acute Plan: Acute on chronic CHF. Will continue with Lasix 40 mg IV b.i.d.. Continue with 1500 cc per day fluid restriction. Patient also on Aldactone. Will wean off oxygen. Original weight 460 now down to 430. Awaiting approval for the patient to go to a long-term care facility placement for aggressive wound care and IV antibiotic therapy. Continue as above Qualifiers: Heart failure type: diastolic Heart failure chronicity: acute on chronic Qualified Code(s): I50.33 - Acute on chronic diastolic (congestive) heart failure (3) Cellulitis Onset Date: 10/24/17 Current Visit: Yes Status: Acute Plan: Right lower extremity cellulitis noted. This has improved with wound care and IV antibiotic therapy. Patient with also chronic lymphedema. Wound culture positive for Klebsiella pneumoniae and Pseudomonas aeruginosa. Patient on Zosyn 4.5 g every 6 hr. Patient will need IV antibiotic therapy for at least 2- 4 weeks for significant improvement. Wound care has evaluated the patient. Patient requires at least 3 people for wound care due to his morbid obesity. This cannot be done at a skilled facility or home. Patient has failed home with home health. Patient requires long-term acute facility placement for IV antibiotic therapy, aggressive wound care and possibility of hyperbarics. Patient will require lymphedema treatment as well. Will discuss with insurance medical office administrator for approval. Qualifiers: Site of cellulitis: extremity Laterality: right (4) Chronic acquired lymphedema Onset Date: 01/12/17 Current Visit: No Status: Chronic Plan: Patient will require lymphedema treatment. Continue with diuretic therapy, fluid restriction, medications, and IV antibiotic therapy/aggressive wound care for cellulitis. (5) Hyperlipidemia Current Visit: No Status: Chronic Plan: Continue home medication. Qualifiers: Hyperlipidemia type: unspecified Qualified Code(s): E78.5 - Hyperlipidemia , unspecified (6) Hypertension Onset Date: 01/12/17 Current Visit: No Status: Chronic Plan: Continue home medication. Will monitor and adjust appropriately. Qualifiers: Hypertension type: essential hypertension Qualified Code(s): I10 - Essential (primary) hypertension (7) Morbid obesity Onset Date: 01/12/17 Current Visit: No Status: Chronic Plan: Lifestyle modification education provided. (8) Obesity hypoventilation syndrome Onset Date: 01/12/17 Current Visit: No Status: Chronic Plan: Will wean off oxygen. Patient will need sleep study evaluation for sleep apnea as an outpatient. (9) Type 2 diabetes mellitus Onset Date: 01/12/17 Current Visit: No Status: Chronic Plan: Last A1c 6.1. Now A1c 8.1. Will provide a sliding scale. Continue with metformin. Qualifiers: Diabetes mellitus assisted insulin use: without assisted use Diabetes mellitus complication status: with skin complications Diabetes mellitus complication detail: with other skin complication Qualified Code(s): E11.628 - Type 2 diabetes mellitus with other skin complications (10) Left knee pain Current Visit: Yes Status: Acute Plan: X-ray shows no fracture. Will monitor closely. Will physical therapy evaluate. Qualifiers: Chronicity: acute Qualified Code(s): M25.562 - Pain in left knee (11) Diabetic neuropathy Current Visit: Yes Status: Chronic Plan: Continue with medication. Qualifiers: Diabetes mellitus type: type 2 Diabetes mellitus complication detail: diabetic polyneuropathy Qualified Code(s): E11.42 - Type 2 diabetes mellitus with diabetic polyneuropathy (12) GERD (gastroesophageal reflux disease) Current Visit: Yes Status: Chronic Plan: Continue with medication. Qualifiers: Esophagitis presence: esophagitis presence not specified Qualified Code(s) : K21.9 - Gastro-esophageal reflux disease without esophagitis (13) Anemia Current Visit: Yes Status: Chronic Plan: Likely of chronic disease. Will monitor closely. Qualifiers: Anemia type: other cause Other causes of anemia: chronic disease, other Qualified Code(s): D63.8 - Anemia in other chronic diseases classified elsewhere Discharge Plan: LTAC Plan to discharge in: 24 Hours Time Spent Managing Pts Care (In Minutes): 55
[2017-10-27] MEDS: ENOXAPARIN 40 MG/0.4 ML SQ SCH (17:35)
[2017-10-27] MEDS: ATORVASTATIN 40 MG TAB PO SCH (20:40)
[2017-10-28] MEDS: FUROSEMIDE 40 MG/4 ML VIAL IV SCH ×2 (05:42→16:55)
[2017-10-28] MEDS: PIPER/TAZO/NS 4.5gm 4.5 GM/100 ML BAG IVPB SCH ×4 (05:42→23:14)
[2017-10-28 05:54] VITALS: BMI 60.0
[2017-10-28 06:11] LABS: BUN Blood Urea Nitrogen 13 mg/dL (7-18); Bicarbonate 31 mmol/L (21-32); Glucose Level 97 mg/dL (74-106); Potassium 3.4 mmol/L (3.5-5.1); Sodium Level 142 mmol/L (136-145)
[2017-10-28] MEDS ORDERED: POTASSIUM 25 MEQ EFFERV TAB PO ONE (06:36)
[2017-10-28] MEDS: ARFORMOTEROL TARTRATE 15 MCG/2 ML VIAL.NEB NEB SCH ×2 (07:44→20:00)
[2017-10-28] MEDS: COLLAGENASE 30 GM OINTMENT TOP SCH (09:00)
[2017-10-28] MEDS: HYDROCODONE/APAP 5/325 MG TAB PO PRN ×2 (09:13→20:57)
[2017-10-28] MEDS: PREGABALIN 75 MG CAP PO SCH ×3 (09:13→20:57)
[2017-10-28] MEDS: METFORMIN HCL 500 MG TAB PO SCH ×2 (09:13→16:55)
[2017-10-28] MEDS: SPIRONOLACTONE 25 MG TABLET PO SCH ×2 (09:14→20:57)
[2017-10-28] MEDS: ISOSORBIDE MONO SR 30 MG TAB PO SCH (09:14)
[2017-10-28] MEDS: FAMOTIDINE 20 MG TAB PO SCH (09:14)
[2017-10-28] MEDS: LISINOPRIL 20 MG TAB PO SCH (09:14)
[2017-10-28] MEDS: ASPIRIN 81 MG CHEWABLE TABLET PO SCH (09:14)
--- NOTE | 2017-10-28 11:14 | P.PN ---
Subjective Date of Service: 10/28/17 Primary Care Provider: Dr. Neville Chief Complaint: Right-sided leg pain and discharge Pt seen and examined at bedside with RN. Chart reviewed. Currently pt is awaiting placement. Insurance Denied LTAC and states pt can be send to SNF. Pt denied from 2 SNF already and pending 2 other. If all SNF deny pt will contact insurance again to get the patient to LTAC for complex wound care and IV ABX. Review of Systems General: As per HPI Physical Examination - Vital Signs Temperature: 96.8 F Blood Pressure: 161/83 Pulse: 70 Respirations: 18 Pulse Ox (%): 98 - Physical Exam General: Alert, Oriented x3, Mild distress, Obese HEENT: Atraumatic Neck: Supple Respiratory: Normal air movement, Crackles/rales Cardiovascular: Regular rate/rhythm, Normal S1 S2 Gastrointestinal: Normal bowel sounds, Soft and benign, Non-distended, No tenderness Musculoskeletal: Erythema, Tenderness, Warmth, Other (Extensive BL wound on the LE with swelling. ) Integumentary: Rash(es), Skin lesion Neurological: Normal speech, Normal tone, Normal affect Lymphatics: No axilla or inguinal lymphadenopathy - Studies Microbiology Data (last 24 hrs): 10/22/17 13:20 Blood - Blood Aerobic Blood Culture - Final No growth in 5 days. 10/22/17 13:20 Blood - Blood Anaerobic Blood Culture - Final No growth in 5 days. 10/22/17 12:55 Blood - Blood Aerobic Blood Culture - Final No growth in 5 days. 10/22/17 12:55 Blood - Blood Anaerobic Blood Culture - Final No growth in 5 days. Medications List Reviewed: Yes Assessment & Plan - Problems (Diagnosis) (1) Cellulitis Onset Date: 10/24/17 Current Visit: Yes Status: Acute Plan: acute Right cellulites. Most likely 2.2 to Chronic lymphedema and Obesity -Pt is currently required high level of care with wound care and IV abx -On IV zosyn. Culture + for pseudomonas and Klebsiella -Wound Care on Board. -Pt is pending placement at this time -ID consulted. Qualifiers: Site of cellulitis: extremity Laterality: right (2) Chronic acquired lymphedema Onset Date: 01/12/17 Current Visit: No Status: Chronic (3) Stasis dermatitis of both legs Onset Date: 01/12/17 Current Visit: No Status: Chronic (4) CHF (congestive heart failure) Current Visit: Yes Status: Chronic Qualifiers: Heart failure type: diastolic Heart failure chronicity: acute on chronic Qualified Code(s): I50.33 - Acute on chronic diastolic (congestive) heart failure (5) COPD (chronic obstructive pulmonary disease) Current Visit: Yes Status: Chronic Qualifiers: COPD type: chronic bronchitis Chronic bronchitis type: unspecified Qualified Code(s): J42 - Unspecified chronic bronchitis (6) Type 2 diabetes mellitus Onset Date: 01/12/17 Current Visit: No Status: Chronic Qualifiers: Diabetes mellitus shelter insulin use: without shelter use Diabetes mellitus complication status: with skin complications Diabetes mellitus complication detail: with other skin complication Qualified Code(s): E11.628 - Type 2 diabetes mellitus with other skin complications (7) Hypertension Onset Date: 01/12/17 Current Visit: No Status: Chronic Qualifiers: Hypertension type: essential hypertension Qualified Code(s): I10 - Essential (primary) hypertension (8) Hyperlipidemia Current Visit: No Status: Chronic Qualifiers: Hyperlipidemia type: unspecified Qualified Code(s): E78.5 - Hyperlipidemia , unspecified (9) Obesity hypoventilation syndrome Onset Date: 01/12/17 Current Visit: No Status: Chronic (10) Morbid obesity Onset Date: 01/12/17 Current Visit: No Status: Chronic (11) GERD (gastroesophageal reflux disease) Current Visit: Yes Status: Chronic Qualifiers: Esophagitis presence: esophagitis presence not specified Qualified Code(s) : K21.9 - Gastro-esophageal reflux disease without esophagitis Discharge Plan: Other Plan to discharge in: 48 Hours - Code Status/Comfort Care Code Status Assessed: Yes Critical Care: No
[2017-10-28] MEDS: ENOXAPARIN 40 MG/0.4 ML SQ SCH (16:55)
[2017-10-28] MEDS: ATORVASTATIN 40 MG TAB PO SCH (20:56)
[2017-10-29 05:42] LABS: BUN Blood Urea Nitrogen 13 mg/dL (7-18); Bicarbonate 30 mmol/L (21-32); Glucose Level 110 mg/dL (74-106); Potassium 3.7 mmol/L (3.5-5.1); Sodium Level 142 mmol/L (136-145)
[2017-10-29] MEDS: PIPER/TAZO/NS 4.5gm 4.5 GM/100 ML BAG IVPB SCH ×3 (05:59→17:12)
[2017-10-29] MEDS: FUROSEMIDE 40 MG/4 ML VIAL IV SCH ×2 (05:59→17:12)
[2017-10-29] MEDS ORDERED: POTASSIUM 25 MEQ EFFERV TAB PO ONE (06:29)
[2017-10-29] MEDS: ARFORMOTEROL TARTRATE 15 MCG/2 ML VIAL.NEB NEB SCH ×2 (07:59→19:36)
[2017-10-29] MEDS: PREGABALIN 75 MG CAP PO SCH ×3 (08:41→20:59)
[2017-10-29] MEDS: HYDROCODONE/APAP 5/325 MG TAB PO PRN ×3 (08:42→21:24)
[2017-10-29] MEDS: ASPIRIN 81 MG CHEWABLE TABLET PO SCH (08:42)
[2017-10-29] MEDS: METFORMIN HCL 500 MG TAB PO SCH ×2 (08:42→17:12)
[2017-10-29] MEDS: SPIRONOLACTONE 25 MG TABLET PO SCH ×2 (08:44→20:59)
[2017-10-29] MEDS: FAMOTIDINE 20 MG TAB PO SCH (08:45)
[2017-10-29] MEDS: ISOSORBIDE MONO SR 30 MG TAB PO SCH (08:45)
[2017-10-29] MEDS: LISINOPRIL 20 MG TAB PO SCH (08:45)
[2017-10-29] MEDS: COLLAGENASE 30 GM OINTMENT TOP SCH (09:00)
--- NOTE | 2017-10-29 11:09 | P.PN ---
Subjective Date of Service: 10/29/17 Primary Care Provider: Dr. Neville Chief Complaint: Right-sided leg pain and discharge Pt seen and examined at bedside with RN. Chart reviewed. Currently pt is awaiting placement. Insurance Denied LTAC and states pt can be send to SNF. Pt denied from from all SNF. LTAC placement requested again thru insurance. Review of Systems General: As per HPI Physical Examination - Vital Signs Temperature: 97.1 F Blood Pressure: 142/89 Pulse: 70 Respirations: 20 Pulse Ox (%): 99 - Physical Exam General: Alert, In no apparent distress, Obese HEENT: Atraumatic, PERRLA, EOMI Neck: Supple, JVD not distended Respiratory: Clear to auscultation bilaterally, Normal air movement Cardiovascular: Regular rate/rhythm, Normal S1 S2 Gastrointestinal: Normal bowel sounds, No tenderness Musculoskeletal: Erythema, Tenderness, Warmth Integumentary: Rash(es) Neurological: Normal speech, Normal tone, Normal affect Lymphatics: No axilla or inguinal lymphadenopathy - Studies Medications List Reviewed: Yes Assessment & Plan - Problems (Diagnosis) (1) Cellulitis Onset Date: 10/24/17 Current Visit: Yes Status: Acute Plan: acute Right cellulites. Most likely 2.2 to Chronic lymphedema and Obesity -Pt is currently required high level of care with wound care and IV abx -On IV zosyn. Culture + for pseudomonas and Klebsiella -Wound Care on Board. -Pt is pending placement at this time -ID consulted. Qualifiers: Site of cellulitis: extremity Laterality: right (2) Chronic acquired lymphedema Onset Date: 01/12/17 Current Visit: No Status: Chronic (3) Stasis dermatitis of both legs Onset Date: 01/12/17 Current Visit: No Status: Chronic (4) CHF (congestive heart failure) Current Visit: Yes Status: Chronic Qualifiers: Heart failure type: diastolic Heart failure chronicity: acute on chronic Qualified Code(s): I50.33 - Acute on chronic diastolic (congestive) heart failure (5) COPD (chronic obstructive pulmonary disease) Current Visit: Yes Status: Chronic Qualifiers: COPD type: chronic bronchitis Chronic bronchitis type: unspecified Qualified Code(s): J42 - Unspecified chronic bronchitis (6) Type 2 diabetes mellitus Onset Date: 01/12/17 Current Visit: No Status: Chronic Qualifiers: Diabetes mellitus group home insulin use: without group home use Diabetes mellitus complication status: with skin complications Diabetes mellitus complication detail: with other skin complication Qualified Code(s): E11.628 - Type 2 diabetes mellitus with other skin complications (7) Hypertension Onset Date: 01/12/17 Current Visit: No Status: Chronic Qualifiers: Hypertension type: essential hypertension Qualified Code(s): I10 - Essential (primary) hypertension (8) Hyperlipidemia Current Visit: No Status: Chronic Qualifiers: Hyperlipidemia type: unspecified Qualified Code(s): E78.5 - Hyperlipidemia , unspecified (9) Obesity hypoventilation syndrome Onset Date: 01/12/17 Current Visit: No Status: Chronic (10) Morbid obesity Onset Date: 01/12/17 Current Visit: No Status: Chronic (11) GERD (gastroesophageal reflux disease) Current Visit: Yes Status: Chronic Qualifiers: Esophagitis presence: esophagitis presence not specified Qualified Code(s) : K21.9 - Gastro-esophageal reflux disease without esophagitis
[2017-10-29] MEDS: ENOXAPARIN 40 MG/0.4 ML SQ SCH (17:11)
[2017-10-29 19:58] VITALS: O2SAT 98
[2017-10-29 20:36] VITALS: BP 142/77; TEMP 96.8
[2017-10-29] MEDS: ATORVASTATIN 40 MG TAB PO SCH (20:59)
--- NOTE | 2017-11-05 14:22 | P.DS ---
Admission Date: 10/22/17 Discharge Date: 11/05/17 Primary Care Provider: Dr. Neville Disposition: [facility] Discharge Condition: FAIR Reason for Admission: Right-sided leg pain and discharge Consultations: ID -0 Dr Duarte - Problems (1) Cellulitis Onset Date: 10/24/17 Status: Acute Qualifiers: Site of cellulitis: extremity Laterality: right (2) Chronic acquired lymphedema Onset Date: 01/12/17 Status: Chronic (3) Stasis dermatitis of both legs Onset Date: 01/12/17 Status: Chronic (4) CHF (congestive heart failure) Status: Chronic Qualifiers: Heart failure type: diastolic Heart failure chronicity: acute on chronic Qualified Code(s): I50.33 - Acute on chronic diastolic (congestive) heart failure (5) COPD (chronic obstructive pulmonary disease) Status: Chronic Qualifiers: COPD type: chronic bronchitis Chronic bronchitis type: unspecified Qualified Code(s): J42 - Unspecified chronic bronchitis (6) Type 2 diabetes mellitus Onset Date: 01/12/17 Status: Chronic Qualifiers: Diabetes mellitus door paneler insulin use: without care home use Diabetes mellitus complication status: with skin complications Diabetes mellitus complication detail: with other skin complication Qualified Code(s): E11.628 - Type 2 diabetes mellitus with other skin complications (7) Hypertension Onset Date: 01/12/17 Status: Chronic Qualifiers: Hypertension type: essential hypertension Qualified Code(s): I10 - Essential (primary) hypertension (8) Hyperlipidemia Status: Chronic Qualifiers: Hyperlipidemia type: unspecified Qualified Code(s): E78.5 - Hyperlipidemia , unspecified (9) Obesity hypoventilation syndrome Onset Date: 01/12/17 Status: Chronic (10) Morbid obesity Onset Date: 01/12/17 Status: Chronic (11) GERD (gastroesophageal reflux disease) Status: Chronic Qualifiers: Esophagitis presence: esophagitis presence not specified Qualified Code(s) : K21.9 - Gastro-esophageal reflux disease without esophagitis Brief History of Present Illness: Patient is 57 years of age homeless man was been complaining of pain and swelling and discharge which is foul smelling from his right leg0 patient was hospitalized at [facility] was treated with IV antibiotics sent home on Levaquin and shortly after that he got worse and becoming progressively worse over the past few weeks denies any pulmonary complaints has a history of congestive heart failure and COPD he has not taken any medications recently Hospital Course: During the hospital stay patient remained stable The patient was admitted to the hospital due to right leg cellulitis. Patient was seen by infectious disease here in the hospital who recommended the patient be started on IV antibiotics and wound care. Patient had improvement in his symptoms initially. Patient also has a history of chronic lymphedema along with CHF. Patient was started on IV Lasix here in the hospital as well. Patient will is heavily obese individual who will require complex wound care along with IV antibiotics thus long-term acute care was recommended by the infectious disease doctor. Insurance however denied long-term acute care facility and recommended the patient be sent to a intermediate facility. Overall skin intermediate facilities were contacted and patient was rejected from 10 of them. Clinicals were sent to for different need intermediate facility however due to being overweight he was rejected from all 4 facilities as well. In appeal was made with insurance company to allow patient to be transferred to a long-term acute care facility given his need for complex wound care along with IV Lasix and IV antibiotics and given that he was denied by select the. Patient at that time was accepted at [facility] and was approved by insurance as well and thus was transferred over to [facility] for further care. Vital Signs/Physical Exam: Temp Pulse Resp BP Pulse Ox 96.8 F 69 20 142/77 H 99 10/29/17 20:00 10/29/17 20:59 10/29/17 20:00 10/29/17 20:59 10/29/17 20:00 General: Alert, In no apparent distress HEENT: Atraumatic, PERRLA, EOMI Neck: Supple, JVD not distended Respiratory: Clear to auscultation bilaterally, Normal air movement Cardiovascular: Regular rate/rhythm, Normal S1 S2 Gastrointestinal: Normal bowel sounds, No tenderness Musculoskeletal: Swelling, Erythema, Tenderness, Warmth Integumentary: Skin breakdown, Skin lesion, Tenderness/swelling, Erythema, Warmth Neurological: Normal speech, Normal tone, Normal affect Lymphatics: No axilla or inguinal lymphadenopathy Laboratory Data at Discharge: WBC 6.3 K/uL (4.3-10.9) 10/27/17 05:38 Hgb 13.0 g/dL (13.6-17.9) L 10/27/17 05:38 Hct 37.4 % (39.6-49.0) L 10/27/17 05:38 Plt Count 258 K/uL (152-406) 10/27/17 05:38 PT 13.2 SECONDS (9.5-12.5) H 10/22/17 12:55 INR 1.12 10/22/17 12:55 APTT 26.8 SECONDS (24.3-36.9) 10/22/17 12:55 Sodium 142 mmol/L (136-145) 10/29/17 04:26 Potassium 3.7 mmol/L (3.5-5.1) 10/29/17 04:26 BUN 13 mg/dL (7-18) 10/29/17 04:26 Creatinine 0.80 mg/dL (0.55-1.3) 10/29/17 04:26 Glucose 110 mg/dL (74-106) H 10/29/17 04:26 Magnesium 2.0 mg/dL (1.8-2.4) 10/27/17 05:38 Total Bilirubin 0.5 mg/dL (0.2-1.0) 10/22/17 12:55 AST 26 U/L (15-37) 10/22/17 12:55 ALT 25 U/L (12-78) 10/22/17 12:55 Alkaline Phosphatase 130 U/L (45-117) H 10/22/17 12:55 Lipase 130 U/L (73-393) 10/22/17 12:55 Home Medications: Potassium Chloride [K-Dur] 20 meq PO DAILY 01/11/17 Clindamycin HCl 300 mg PO Q8H 10/22/17 Furosemide [Lasix*] 40 mg PO DAILY 10/22/17 Hydrocodone/Acetaminophen [Hydrocodone-Acetamin 7.5-325] 1 tab PO BID 10/22/17 Lisinopril [Prinivil*] 20 mg PO DAILY 10/22/17 Pregabalin [Lyrica*] 75 mg PO TID 10/22/17 glipiZIDE [Glucotrol*] 5 mg PO BIDWM 10/22/17 levoFLOXacin [Levaquin*] 750 mg PO Q24H 10/22/17
== END 2017-10-29 22:24 | DRG 602 ==
LOC: SUPCPDRO 11:15 → ER 11:15 → ERHOLD 14:23 → OBSVTOIN 14:23 → 2ND 16:47
PROVIDERS: ADMIT Internal Medicine Sleep Medicine; ATTEND Family Medicine
DX: L03.115 Cellulitis of right lower limb (principal); I50.33 Acute on chronic diastolic (congestive) heart failure; E66.2 Morbid (severe) obesity with alveolar hypoventilation; Z68.44 Body mass index [BMI] 60.0-69.9, adult; I89.0 Lymphedema, not elsewhere classified; I11.0 Hypertensive heart disease with heart failure; J42 Unspecified chronic bronchitis; E11.628 Type 2 diabetes mellitus with other skin complications; E78.5 Hyperlipidemia, unspecified; K21.9 Gastro-esophageal reflux disease without esophagitis; I87.2 Venous insufficiency (chronic) (peripheral); E11.40 Type 2 diabetes mellitus with diabetic neuropathy, unspecified; D63.8 Anemia in other chronic diseases classified elsewhere; Z59.0 Homelessness; Z79.84 Long term (current) use of oral hypoglycemic drugs; Z79.82 Long term (current) use of aspirin; I25.2 Old myocardial infarction; Z88.4 Allergy status to anesthetic agent
CPT/HCPCS: 36415; 71045; 80048; 80076; 81003; 82962; 83036; 83605; 83690; 83735; 84132; 84145; 84439; 84443; 85025; 85027; 85610; 85730; 87040; 87070; 87077; 87186; 87205; 93005; 93970; 96361; 96374; 97163; 99285; J1650; J3010; J3475; J3590; J7605; S0077

== ENCOUNTER 2018-06-20 18:48 | Inpatient (IN) | payer OTHER ==
--- OUTSIDE RECORDS SUMMARY | 2018-06-20 18:50 | XMS REPORT | Continuity of Care Document ---
:1960 Author Organization [facility] Address [address] [place] [address] Phone Unavailable Care Team Providers Name Role Phone MOY BARCLAY Primary Care Physician Insurance Providers Guarantor Naida Perez Address [address] [place] [address] Email [email or web address] Policy Number [id number] Subscriber's Name Naida Perez Relationship Self / Same As Patient Group Number [id number] Group Name NA Effective Date 04 Advance Directives Directive Response Recorded Date/Time Advance Directive on File No 03/22/18 2:38am Patient/Family Given Education Material R/T Y - 03/22/18...MK 03/22/18 3: 28am Directives? Chief Complaint and Reason for Visit Chief Complaint Extremity Pain/Injury Reason for Visit Lymphedema Peripheral edema Cellulitis of leg Problems Medical Problem Onset Date Status Cellulitis of leg Unknown Acute Edema, peripheral Unknown Acute Peripheral edema Unknown Acute Upper respiratory infection Unknown Acute Past Problems Medical Problem Onset Date Status Chest pain Unknown Acute Contusion of left knee Unknown Acute Contusion of left knee Unknown Acute Dyspnea Unknown Acute Fall at home Unknown Acute Fall at home Unknown Acute Lymphedema Unknown Acute Morbid obesity Unknown Acute UTI (urinary tract infection) with pyuria Unknown Acute Medications Current Home Medications Medication Dose Units Route Directions Days Qty Instructions Start Date Aspirin (Aspirin 325 Mg ORAL Every Morning 30 09/27/12 *) 325 Mg Tab Atorvastatin 20 Mg ORAL Once Daily 30 11/06/12 Calcium (Lipitor 20 Mg*) 20 Mg Tab Carvedilol 3.125 Mg ORAL Twice Daily 60 11/06/12 (Coreg *) 3.125 With Meals Mg Tab Clopidogrel 75 Mg ORAL Once Daily 30 09/27/12 Bisulfate (Plavix 75 Mg) 75 Mg Tab Isosorbide 30 Mg ORAL Once Daily 30 11/06/12 Mononitrate (Imdur *) 30 Mg Tab Lisinopril 5 Mg ORAL Once Daily 30 Days 11/06/12 (Zestril/Prinivi l *) 5 Mg Tab Potassium 1 Tab ORAL Twice A Day 60 11/06/12 Chloride Er * 20 Meq Tab Sulfamethoxazole 1 Tab ORAL Twice A Day 14 Tablet /Tmp 800/160 Mg * (Bactrim Ds 800/160 Mg *) 1 Tab Tab Past Home Medications Medication Directions Ordered Status Atorvastatin Calcium (Lipitor 20 Mg*) 20 Once Daily 09/27/12 Discontinued Mg Tab, 20 Mg Oral Carvedilol (Coreg *) 3.125 Mg Tab, 3.125 Twice Daily With Meals 09/27/12 Discontinued Mg Oral Clindamycin Hcl (Clindamycin Hcl 300 Mg Three Times A Day 11/06/12 Discontinued *) 300 Mg Cap, 300 Mg Oral Clopidogrel Bisulfate (Plavix 75 Mg) 75 Once Daily 11/06/12 Discontinued Mg Tab, 75 Mg Oral Isosorbide Mononitrate (Imdur *) 30 Mg Once Daily 09/27/12 Discontinued Tab, 30 Mg Oral Social History Social History Problem Response Recorded Date/Time Onset Date Status Hx Physical Abuse No 03/22/2018 2:38am Not Applicable Not Applicable Smoking Status Start Date Stop Date Never smoker Hospital Discharge Instructions No hospital discharge instruction information available. Plan of Care Discharge Date 03/22/18 3:35am Instructions/Education Provided Lymphedema Cellulitis, Adult, [id number] Peripheral Edema Prescriptions See Medication Section Referrals MOY BARCLAY Address: [address] [place] [address] Additional Instructions/Education Follow up with your pharmacy operations specialist tomorrow for further instructions and evaluation of your right lower extremity lymphedema. Otherwise return to the Ed if your condition worsens. Functional Status No functional status information available. Allergies, Adverse Reactions, Alerts Allergen Type Severity Reaction Status Last Updated No Known Allergies Allergy Unknown Active 08/04/13 Immunizations No immunization information available. Vital Signs Acute Vital Signs Vital Response Date/Time Blood Pressure 129/67 mm Hg 03/22/2018 3:34am Pulse Pulse Rate (adult) 84 beats per minute (60 - 100) 03/22/2018 3:34am Respiratory Rate 24 breaths per minute (10 - 24) 03/22/2018 3:34am Temperature Source Oral 03/22/2018 3:34am Height 5 ft 10 in 03/22/2018 2:38am Weight 390 lb 03/22/2018 2:38am Body Mass Index 56.0 kg/m^2 03/22/2018 2:38am Results Laboratory Results Test Name Result Units Flags Reference Collection Result Comments Date/Time Date/Time White Blood Count 7.8 K/ul 4.0-12.3 03/13/2018 03/13/2018 2:37pm 2:59pm Red Blood Count 5.07 M/ul 3.80-5.80 03/13/2018 03/13/2018 2:37pm 2:59pm Hemoglobin 15.2 g/dl 11.67-17.22 03/13/2018 03/13/2018 2:37pm 2:59pm Hematocrit 46.1 % 35.0-51.0 03/13/2018 03/13/2018 2:37pm 2:59pm Mean Corpuscular 91.0 fl 78-96 03/13/2018 03/13/2018 Volume 2:37pm 2:59pm Mean Corpuscular 30.0 pg 26.8-33.4 03/13/2018 03/13/2018 Hemoglobin 2:37pm 2:59pm Mean Corpuscular 33.0 g/dl 32.3-36.7 03/13/2018 03/13/2018 Hemoglobin Concent 2:37pm 2:59pm Red Cell 14.0 % 11.6-15.4 03/13/2018 03/13/2018 Distribution Width 2:37pm 2:59pm Platelet Count 283 K/ul 115-328 03/13/2018 03/13/2018 2:37pm 2:59pm Mean Platelet 8.1 fl L 8.4-11.8 03/13/2018 03/13/2018 Volume 2:37pm 2:59pm Neutrophils (%) 62.9 % 44.7-82.4 03/13/2018 03/13/2018 (Auto) 2:37pm 2:59pm Lymphocytes (%) 23.0 % 10.0-50.0 03/13/2018 03/13/2018 (Auto) 2:37pm 2:59pm Monocytes (%) 7.5 % 3.9-13.4 03/13/2018 03/13/2018 (Auto) 2:37pm 2:59pm Eosinophils (%) 5.8 % 0.0-6.43 03/13/2018 03/13/2018 (Auto) 2:37pm 2:59pm Basophils (%) 0.8 % H 0.0-0.72 03/13/2018 03/13/2018 (Auto) 2:37pm 2:59pm Erythrocyte 47 mm/hr H 0.00-20 03/13/2018 03/13/2018 Sedimentation Rate 2:37pm 3:05pm Procedures Procedure Status Date Provider(s) COMPLETE CBC W/AUTO DIFF WBC Completed 03/13/18 RBC SED RATE AUTOMATED Completed 03/13/18 ROUTINE VENIPUNCTURE Completed 03/13/18 Encounters Encounter Location Arrival/Admit Date Discharge/Depart Date Attending Provider Departed [place] 03/22/18 2:33am 03/22/18 3:35am DALTON JEFFRIES [facility] Registered [place] 03/13/18 2:25pm IVÁN JOSHI [facility] Recent Diagnosis
--- NOTE | 2018-06-20 20:23 | EDPHYS ---
Physician Documentation [facility] Name: Juan J Lin Age: 57 yrs Sex: Male : 1960 Arrival Date: 06/20/2018 Time: 18:50 Bed 7 Private MD: ED Physician Joe Wang HPI: 06/20 20:14 This 57 yrs old Male presents to ER via Wheelchair with complaints of Leg ivy Infection, Shortness Of Breath. 20:14 The patient has shortness of breath at rest, with light activity. Onset: The ivy symptoms/episode began/occurred 3 day(s) ago. The patient's shortness of breath is aggravated by exertion, supine position, walking. Associated signs and symptoms: Pertinent positives: non-productive cough, dizziness, lower ext swelling, figueroa, weight gain. Severity of symptoms: At their worst the symptoms were moderate in the emergency department the symptoms are unchanged. The patient has not experienced similar symptoms in the past. Historical: - Allergies: 19:15 Anesthesia- combative reaction; lp1 20:14 Vancomycin; ea - Home Meds: 19:15 atorvastatin 40 mg Oral tab 1 tab once daily [Active]; carvedilol 3.125 mg Oral tab 1 lp1 tab 2 times per day [Active]; diclofenac sodium 75 mg Oral TbEC 2 times per day [Active]; furosemide 40 mg Oral tab 2 tabs once daily [Active]; glipizide 5 mg Oral tab [Active]; isosorbide mononitrate 30 mg Oral Tb24 1 tab once daily [Active]; lisinopril 5 mg Oral tab 1 tab once daily [Active]; metformin 500 mg Oral tr24 1 tab once daily [Active]; potassium chloride 20 mEq Oral TbER 1 tab once daily [Active]; spironolactone 25 mg Oral tab 1 tab once daily [Active]; Tramadol Oral [Active]; - PMHx: 19:15 cardiomegaly; CHF; Hypertension; Myocardial infarction; lp1 - PSHx: 19:15 Appendectomy; Cholecystectomy; lp1 - Immunization history:: Adult Immunizations up to date. - Social history:: Smoking status: Patient/guardian denies using tobacco, never smoked. - Ebola Screening: : No symptoms or risks identified at this time. - Family history:: not pertinent. ROS: 20:14 Constitutional: Negative for fever, chills, and weight loss, Eyes: Negative for injury, ivy pain, redness, and discharge, ENT: Negative for injury, pain, and discharge, Neck: Negative for injury, pain, and swelling, Cardiovascular: Negative for chest pain, palpitations, and edema, Abdomen/GI: Negative for abdominal pain, nausea, vomiting, diarrhea, and constipation, Back: Negative for injury and pain, : Negative for injury, bleeding, discharge, and swelling, Neuro: Negative for headache, weakness, numbness, tingling, and seizure, Psych: Negative for depression, anxiety, suicide ideation, homicidal ideation, and hallucinations, Allergy/Immunology: Negative for hives, rash, and allergies, Endocrine: Negative for neck swelling, polydipsia, polyuria, polyphagia, and marked weight changes, Hematologic/Lymphatic: Negative for swollen nodes, abnormal bleeding, and unusual bruising. 20:14 Respiratory: Positive for orthopnea, shortness of breath. 20:14 MS/extremity: Positive for decreased range of motion, pain, swelling, tenderness, of the right leg. Exam: 20:14 Constitutional: This is a well developed, well nourished patient who is awake, alert, ivy and in no acute distress. Head/Face: Normocephalic, atraumatic. Eyes: Pupils equal round and reactive to light, extra-ocular motions intact. Lids and lashes normal. Conjunctiva and sclera are non-icteric and not injected. Cornea within normal limits. Periorbital areas with no swelling, redness, or edema. ENT: Nares patent. No nasal discharge, no septal abnormalities noted. Tympanic membranes are normal and external auditory canals are clear. Oropharynx with no redness, swelling, or masses, exudates, or evidence of obstruction, uvula midline. Mucous membranes moist. Neck: Trachea midline, no thyromegaly or masses palpated, and no cervical lymphadenopathy. Supple, full range of motion without nuchal rigidity, or vertebral point tenderness. No Meningismus. Chest/axilla: Normal chest wall appearance and motion. Nontender with no deformity. No lesions are appreciated. Cardiovascular: Regular rate and rhythm with a normal S1 and S2. No gallops, murmurs, or rubs. Normal PMI, no JVD. No pulse deficits. Abdomen/GI: Soft, non-tender, with normal bowel sounds. No distension or tympany. No guarding or rebound. No evidence of tenderness throughout. Back: No spinal tenderness. No costovertebral tenderness. Full range of motion. Skin: Warm, dry with normal turgor. Normal color with no rashes, no lesions, and no evidence of cellulitis. Neuro: Awake and alert, GCS 15, oriented to person, place, time, and situation. Cranial nerves II-XII grossly intact. Motor strength 5/5 in all extremities. Sensory grossly intact. Cerebellar exam normal. Normal gait. Psych: Awake, alert, with orientation to person, place and time. Behavior, mood, and affect are within normal limits. 20:14 Respiratory: the patient does not display signs of respiratory distress, Respirations: normal, Breath sounds: decreased breath sounds. Vital Signs: 19:17 BP 166 / 93; Pulse 80; Resp 20; Temp 97.9; Pulse Ox 99% on R/A; Height 5 ft. 10 in. lp1 (177.80 cm); Pain 10/10; 19:21 Weight 209.51 kg (M); lp1 20:40 BP 155 / 80; Pulse 78; Resp 22; Pulse Ox 97% on R/A; tl2 22:52 BP 142 / 78; Pulse 77; Resp 15; Pulse Ox 96% on R/A; tl2 23:16 BP 158 / 41; Pulse 76; Resp 16 S; Pulse Ox 96% ; ea 19:21 Body Mass Index 66.27 (209.51 kg, 177.80 cm) lp1 MDM: 19:19 Patient medically screened. [facility] 20:18 Data reviewed: vital signs, nurses notes, lab test result(s), EKG, radiologic studies, ivy plain films. 06/20 19:55 Order name: Basic Metabolic Panel; Complete Time: 22:10 06/20 19:55 Order name: CBC with Diff; Complete Time: 22:10 06/20 19:55 Order name: LFT's; Complete Time: 22:10 06/20 19:55 Order name: Magnesium; Complete Time: 22:10 06/20 19:55 Order name: NT PRO-BNP; Complete Time: 22:10 06/20 19:55 Order name: PT-INR; Complete Time: 22:10 06/20 19:55 Order name: Troponin (emerg Dept Use Only); Complete Time: 22:10 06/20 19:55 Order name: XRAY Chest (1 view); Complete Time: 22:10 06/20 19:57 Order name: Blood Culture Adult (2) 2 06/20 19:57 Order name: Lactate; Complete Time: 22:10 [facility] 06/20 19:57 Order name: Lipase; Complete Time: 22:10 [facility] 06/20 19:57 Order name: Procalcitonin; Complete Time: 22:10 [facility] 06/20 19:55 Order name: EKG; Complete Time: 19:56 06/20 19:55 Order name: Cardiac monitoring; Complete Time: 20:28 06/20 19:55 Order name: EKG - Nurse/Tech; Complete Time: 20:28 06/20 19:55 Order name: IV Saline Lock; Complete Time: 19:57 06/20 19:55 Order name: Labs collected and sent; Complete Time: 19:57 06/20 19:55 Order name: O2 Per Protocol; Complete Time: 19:57 06/20 19:55 Order name: O2 Sat Monitoring; Complete Time: 19:58 06/20 22:14 Order name: Wound Care; Complete Time: 22:52 ivy Administered Medications: 20:38 Drug: morphine 4 mg Route: IVP; Site: right antecubital; tl2 22:02 Follow up: Response: No adverse reaction; Pain is decreased ea 20:38 Drug: Zofran 4 mg Route: IVP; Site: right antecubital; tl2 22:03 Follow up: Response: No adverse reaction ea 20:39 Drug: Zosyn 3.375 grams Route: IVPB; Infused Over: 60 mins; Site: right antecubital; tl2 21:33 Follow up: IV Status: Completed infusion tl2 21:33 Drug: Clindamycin 900 mg Route: IVPB; Infused Over: 30 mins; Site: right antecubital; tl2 22:02 Follow up: Response: No adverse reaction; IV Status: Completed infusion ea Disposition: 06/20/18 20:22 Hospitalization ordered by Nikki Jameson for Inpatient Admission. Preliminary diagnosis are Obesity, unspecified, Edema, unspecified, Cellulitis and acute lymphangitis of other parts of limb, Unspecified combined systolic (congestive) and diastolic (congestive) heart failure, Lymphedema, not elsewhere classified. - Bed requested for Telemetry/MedSurg (Inpatient). - Status is Inpatient Admission. tl2 - Condition is Fair. - Problem is new. - Symptoms have improved. UTI on Admission? No Signatures: Dispatcher [employer] EDAL Joe Wang MD MD cha Pena, Laura, RN RN lp1 Zakia Bruner RN RN tl2 Bita Weinstein RN RN ea [place], MyKena mw2 Corrections: (The following items were deleted from the chart) 22:00 20:22 Hospitalization Ordered by Nikki Jameson MD for Inpatient Admission. Preliminary mw2 diagnosis is Obesity, unspecified; Edema, unspecified; Cellulitis and acute lymphangitis of other parts of limb; Unspecified combined systolic (congestive) and diastolic (congestive) heart failure; Lymphedema, not elsewhere classified. Bed requested for Telemetry/MedSurg (Inpatient). Status is Inpatient Admission. Condition is Fair. Problem is new. Symptoms have improved. UTI on Admission? No. [facility] 23:50 22:00 06/20/2018 20:22 Hospitalization Ordered by Nikki Jameson MD for Inpatient tl2 Admission. Preliminary diagnosis is Obesity, unspecified; Edema, unspecified; Cellulitis and acute lymphangitis of other parts of limb; Unspecified combined systolic (congestive) and diastolic (congestive) heart failure; Lymphedema, not elsewhere classified. Bed requested for Telemetry/MedSurg (Inpatient). Status is Inpatient Admission. Condition is Fair. Problem is new. Symptoms have improved. UTI on Admission? No. mw2
--- NOTE | 2018-06-20 20:23 | ER ---
Nurse's Notes [facility] Name: Juan J Lin Age: 57 yrs Sex: Male : 1960 Arrival Date: 06/20/2018 Time: 18:50 Bed 7 Private MD: Diagnosis: Obesity, unspecified;Edema, unspecified;Cellulitis and acute lymphangitis of other parts of limb;Unspecified combined systolic (congestive) and diastolic (congestive) heart failure;Lymphedema, not elsewhere classified Presentation: 06/20 19:10 Presenting complaint: Patient states: "I have lymphedema and I think my leg infection lp1 is getting worse cause all I want to do is sleep"; Patient states symptoms worsening over the last few weeks, shortness of breath, dizziness; Wound healing care to right lower leg yesterday; Patient states low grade fevers off and on. Transition of care: patient was not received from another setting of care. Onset of symptoms was June 20, 2018. Risk Assessment: Do you want to hurt yourself or someone else? Patient reports no desire to harm self or others. Care prior to arrival: None. 19:10 Method Of Arrival: Wheelchair lp1 19:10 Acuity: CHARLIE 2 lp1 19:18 Initial Sepsis Screen: Does the patient meet any 2 criteria? No. Patient's initial lp1 sepsis screen is negative. 19:47 Initial Sepsis Screen: Does the patient have a suspected source of infection? Yes: Skin tl2 breakdown/wound. Triage Assessment: 19:46 General: Appears in no apparent distress. uncomfortable, Reports feeling ill for. tl2 Respiratory: Onset: The symptoms/episode began/occurred today, the patient has mild shortness of breath. Historical: - Allergies: 19:15 Anesthesia- combative reaction; lp1 20:14 Vancomycin; ea - Home Meds: 19:15 atorvastatin 40 mg Oral tab 1 tab once daily [Active]; carvedilol 3.125 mg Oral tab 1 lp1 tab 2 times per day [Active]; diclofenac sodium 75 mg Oral TbEC 2 times per day [Active]; furosemide 40 mg Oral tab 2 tabs once daily [Active]; glipizide 5 mg Oral tab [Active]; isosorbide mononitrate 30 mg Oral Tb24 1 tab once daily [Active]; lisinopril 5 mg Oral tab 1 tab once daily [Active]; metformin 500 mg Oral tr24 1 tab once daily [Active]; potassium chloride 20 mEq Oral TbER 1 tab once daily [Active]; spironolactone 25 mg Oral tab 1 tab once daily [Active]; Tramadol Oral [Active]; - PMHx: 19:15 cardiomegaly; CHF; Hypertension; Myocardial infarction; lp1 - PSHx: 19:15 Appendectomy; Cholecystectomy; lp1 - Immunization history:: Adult Immunizations up to date. - Social history:: Smoking status: Patient/guardian denies using tobacco, never smoked. - Ebola Screening: : No symptoms or risks identified at this time. - Family history:: not pertinent. Screenin:18 Abuse screen: Denies threats or abuse. Denies injuries from another. lp1 19:44 Nutritional screening: No deficits noted. Tuberculosis screening: No symptoms or risk tl2 factors identified. Fall Risk IV access (20 points). Gait- Impaired (20 pts.). Assessment: 19:44 General: Appears in no apparent distress. uncomfortable, Behavior is calm, cooperative, tl2 appropriate for age. General: Reports feeling ill for. Pain: Complains of pain in right leg Pain does not radiate. Pain currently is 7 out of 10 on a pain scale. Neuro: Level of Consciousness is awake, alert, obeys commands, Oriented to person, place, time, situation. Neuro: Reports general weakness, malaise. Cardiovascular: Denies chest pain. Respiratory: Reports shortness of breath Airway is patent Respiratory effort is even, unlabored, Respiratory pattern is regular, symmetrical, Breath sounds are clear bilaterally. GI: No signs and/or symptoms were reported involving the gastrointestinal system. : No signs and/or symptoms were reported regarding the genitourinary system. Derm: Skin is pink, warm \\T\\ dry. Pt reports seeing Dr. Johnson last week and being diagnosed with cellulitis of right lower leg. He is being seen by wound care and home health. 20:40 Reassessment: Patient appears in no apparent distress at this time. No changes from tl2 previously documented assessment. Patient and/or family updated on plan of care and expected duration. Pain level reassessed. Patient is alert, oriented x 3, equal unlabored respirations, skin warm/dry/pink. Will assist Dr. Wang when he goes to assess right leg further. 20:41 Cardiovascular: Rhythm is sinus rhythm. tl2 23:14 Reassessment: Patient and/or family updated on plan of care and expected duration. Pain ea level reassessed. Patient is alert, oriented x 3, equal unlabored respirations, skin warm/dry/pink. Reassessment: Report called to receiving nurse on second floor. 23:48 Reassessment: Patient appears in no apparent distress at this time. Patient and/or tl2 family updated on plan of care and expected duration. Pain level reassessed. Patient is alert, oriented x 3, equal unlabored respirations, skin warm/dry/pink. Vital Signs: 19:17 BP 166 / 93; Pulse 80; Resp 20; Temp 97.9; Pulse Ox 99% on R/A; Height 5 ft. 10 in. lp1 (177.80 cm); Pain 10/10; 19:21 Weight 209.51 kg (M); lp1 20:40 BP 155 / 80; Pulse 78; Resp 22; Pulse Ox 97% on R/A; tl2 22:52 BP 142 / 78; Pulse 77; Resp 15; Pulse Ox 96% on R/A; tl2 23:16 BP 158 / 41; Pulse 76; Resp 16 S; Pulse Ox 96% ; ea 19:21 Body Mass Index 66.27 (209.51 kg, 177.80 cm) lp1 ED Course: 18:50 Patient arrived in ED. as 19:13 Triage completed. lp1 19:13 Arm band placed on. lp1 19:19 Joe Wang MD is Attending Physician. ivy 19:43 Inserted saline lock: 20 gauge in right antecubital area, using aseptic technique. tl2 Blood collected. 19:44 Patient has correct armband on for positive identification. Bed in low position. Call tl2 light in reach. Side rails up X 1. Pt refused to wear gown. 20:19 X-ray completed. Portable x-ray completed in exam room. Patient tolerated procedure az well. 20:20 Nikki Jameson MD is Hospitalizing Provider. ivy 20:21 XRAY Chest (1 view) In Process Unspecified. EDMS 20:24 Bita Weinstein, MESFIN is Primary Nurse. ea 22:24 No provider procedures requiring assistance completed. Patient admitted, IV remains in ea place. 22:30 Dressings: ABD pad Deepika x 2 right leg non-adherent dressing x 3 right leg. tl2 Administered Medications: 20:38 Drug: morphine 4 mg Route: IVP; Site: right antecubital; tl2 22:02 Follow up: Response: No adverse reaction; Pain is decreased ea 20:38 Drug: Zofran 4 mg Route: IVP; Site: right antecubital; tl2 22:03 Follow up: Response: No adverse reaction ea 20:39 Drug: Zosyn 3.375 grams Route: IVPB; Infused Over: 60 mins; Site: right antecubital; tl2 21:33 Follow up: IV Status: Completed infusion tl2 21:33 Drug: Clindamycin 900 mg Route: IVPB; Infused Over: 30 mins; Site: right antecubital; tl2 22:02 Follow up: Response: No adverse reaction; IV Status: Completed infusion ea Outcome: 20:22 Decision to Hospitalize by Provider. ivy 21:00 Admitted to Med/surg accompanied by tech, room 218, Report called to Receiving nurse ea on second floor 21:00 Condition: stable 21:00 Instructed on the need for admit. 23:50 Patient left the ED. tl2 Signatures: Dispatcher [employer] EDJoe Hollins MD MD cha Martinez, Amelia as Pena, Laura, RN RN lp1 Zakia Bruner RN RN tl2 Bita Weinstein RN RN Gracie Samuels Corrections: (The following items were deleted from the chart) 19:22 19:21 209.51 kg Measured; BMI: 66.2; lp1 lp1
[2018-06-20 20:26] LABS: Protime INR 1.15
[2018-06-20 20:27] LABS: Absolute Lymphocytes (CBC) 1.3 K/uL (0.7-4.9); Absolute Monocytes 0.5 K/uL (0.1-1.3); Absolute Neutrophil 4.2 K/uL (1.8-8.0); Basophils % 1.1 % (0-1.3); Eosinophils % 5.8 % (0-4.4); Hematocrit 43.3 % (39.6-49.0); Lymphocytes % 19.9 % (15.3-44.8); MPV 9.3 fL (7.6-11.3); Monocytes % 7.6 % (3.3-12.3)
[2018-06-20] MEDS ORDERED: CLINDAMYCIN 900MG/D5W 900 MG/50 ML IVPB IV ONE (20:33)
[2018-06-20] MEDS ORDERED: PIPER/TAZO/NS 3.375gm 3.375 GM/100 ML BAG ONE (20:33)
[2018-06-20 20:39] LABS: ALT/SGPT 22 U/L (12-78); AST/SGOT 20 U/L (15-37); Albumin 2.9 g/dL (3.4-5.0); Alkaline Phosphatase 142 U/L (45-117); BUN Blood Urea Nitrogen 8 mg/dL (7-18); Bicarbonate 30 mmol/L (21-32); Bilirubin Direct 0.2 mg/dL (0-0.2); Bilirubin Total 0.5 mg/dL (0.2-1.0); Glucose Level 105 mg/dL (74-106); Lipase 61 U/L (73-393); Magnesium 1.9 mg/dL (1.8-2.4); NT PRO-BNP 300 pg/mL (<125); Potassium 3.8 mmol/L (3.5-5.1); Protein, Total 7.7 g/dL (6.4-8.2); Sodium Level 143 mmol/L (136-145); Troponin (Emerg Dept Use Only) < 0.02 ng/mL (0.0-0.045)
[2018-06-20] MEDS ORDERED: MORPHINE 4 MG/ML SYR ONE (20:43)
[2018-06-20] MEDS ORDERED: ONDANSETRON 4 MG/2 ML VIAL ONE (20:43)
--- NOTE | 2018-06-20 20:48 | RAD REPORT ---
EXAM DESCRIPTION: Jonathan Single View06/20/2018 8:22 pm CLINICAL HISTORY: Shortness of breath COMPARISON: October 2017 FINDINGS: The lungs appear clear of acute infiltrate. The heart is mildly enlarged IMPRESSION: No acute abnormalities displayed
--- NOTE | 2018-06-20 22:18 | P.HP ---
Certification for Inpatient Patient admitted to: Inpatient With expected LOS: >2 Midnights Practitioner: I am a practitioner with admitting privileges, knowledge of patient current condition, hospital course, and medical plan of care. Services: Services provided to patient in accordance with Admission requirements found in Title 42 Section 412.3 of the Code of Federal Regulations Patient History Date of Service: 06/20/18 Reason for admission: cellulitis History of Present Illness: Mr Lin is a 57 years old male with history of morbid obesity, lymphedema, chronic LE extremity wounds, who came to ED complaining of increasing pain and secretions from his right leg. He also had fever at home, about 100.4F, and has been more sleepy than usual. The patient has been followed up by Dr Duarte and wound care team. His wound has foul smelling yellowish secretion. At arrival he was afebrile. Lab work shows normal WBC count, lactate and procalcitonin. Allergies soybean Allergy (Verified 10/22/17 21:05) unknown vancomycin Allergy (Verified 10/22/17 23:05) Shortness of breath Anesthesia- combative reaction Allergy (Uncoded 01/11/17 22:39) Unknown Home medications list reviewed: Yes Home Medications: Potassium Chloride [K-Dur] 20 meq PO DAILY 01/11/17 Clindamycin HCl 300 mg PO Q8H 10/22/17 Furosemide [Lasix*] 40 mg PO DAILY 10/22/17 Hydrocodone/Acetaminophen [Hydrocodone-Acetamin 7.5-325] 1 tab PO BID 10/22/17 Lisinopril [Prinivil*] 20 mg PO DAILY 10/22/17 Pregabalin [Lyrica*] 75 mg PO TID 10/22/17 glipiZIDE [Glucotrol*] 5 mg PO BIDWM 10/22/17 levoFLOXacin [Levaquin*] 750 mg PO Q24H 10/22/17 - Past Medical/Surgical History Diabetic: No -: HTN -: High Cholesterol -: CHF -: Cardiomegaly -: [place] -: Obesity -: COPD -: Sleep Apnea -: Cellulitis -: Appendectomy -: Cholecystectomy -: Tonsillectomy -: Left Shoulder Surgery -: Facial surgery - Family History Family History: Reviewed- Non-Contributory - Family History Father -: Heart disease, Hypertension Notes: CHF. stomach tumor Mother -: Heart disease, Hypertension, Diabetes, Cancer, Liver disease Notes: glaucoma. Skin Cancer Brother Notes: scoliosis Sister -: Cancer Notes: breast CA - Social History Alcohol use: No CD- Drugs: No Caffeine use: No Place of Residence: Home Review of Systems 10-point ROS is otherwise unremarkable Physical Examination - Physical Exam General: Alert, In no apparent distress HEENT: Atraumatic, PERRLA, Mucous membr. moist/pink, EOMI, Sclerae nonicteric Neck: Supple, 2+ carotid pulse no bruit, No LAD, Without JVD or thyroid abnormality Respiratory: Clear to auscultation bilaterally, Diminished Cardiovascular: Regular rate/rhythm, Normal S1 S2 Gastrointestinal: Normal bowel sounds, No tenderness Musculoskeletal: Other (lymphedema bilateral) Integumentary: Skin lesion (right desquamative tender to palpation lesion with yellowish foul smeling secretion) Neurological: Normal speech, Normal strength at 5/5 x4 extr, Normal tone, Normal affect Lymphatics: No axilla or inguinal lymphadenopathy - Studies Laboratory Data (last 24 hrs) 06/20/18 19:45: PT 13.5 H, INR 1.15 06/20/18 19:45: WBC 6.4, Hgb 14.1, Hct 43.3, Plt Count 302 06/20/18 19:45: Sodium 143, Potassium 3.8, BUN 8, Creatinine 0.75, Glucose 105, Magnesium 1.9, Total Bilirubin 0.5, AST 20, ALT 22, Alkaline Phosphatase 142 H, Lipase 61 L Assessment and Plan - Problems (Diagnosis) (1) Cellulitis Onset Date: 10/24/17 Current Visit: No Status: Acute Qualifiers: Site of cellulitis: extremity Laterality: right (2) COPD (chronic obstructive pulmonary disease) Current Visit: No Status: Chronic Qualifiers: COPD type: chronic bronchitis Chronic bronchitis type: unspecified Qualified Code(s): J42 - Unspecified chronic bronchitis (3) Chronic acquired lymphedema Onset Date: 01/12/17 Current Visit: No Status: Chronic (4) Hypertension Onset Date: 01/12/17 Current Visit: No Status: Chronic Qualifiers: Hypertension type: essential hypertension Qualified Code(s): I10 - Essential (primary) hypertension (5) Morbid obesity Onset Date: 01/12/17 Current Visit: No Status: Chronic (6) Type 2 diabetes mellitus Onset Date: 01/12/17 Current Visit: No Status: Chronic Qualifiers: Diabetes mellitus oil heaterman insulin use: without long-term use Diabetes mellitus complication status: with skin complications Diabetes mellitus complication detail: with other skin complication Qualified Code(s): E11.628 - Type 2 diabetes mellitus with other skin complications - Plan The patient will be admitted to the hospital due to left lower extremity cellulitis on top of chronic lymphedema lesions. Will start empiric antibiotics , consult wound care, and Dr Duarte. The patient is hemodynamically stable. - Advance Directives Does patient have a Living Will: No Does patient have a Durable POA for Healthcare: No - Code Status/Comfort Care Code Status Assessed: Yes Code Status: Full Code
[2018-06-20] MEDS ORDERED: GLUCAGON 1 MG/VIAL IM PRN (23:33)
[2018-06-20] MEDS ORDERED: NA CHLORIDE 0.9% IVPB SCH (23:33)
[2018-06-20] MEDS ORDERED: ACETAMINOPHEN 500 MG TAB PO PRN (23:33)
[2018-06-20] MEDS ORDERED: ONDANSETRON 4 MG/2 ML VIAL IV PRN (23:33)
[2018-06-20] MEDS ORDERED: DAPTOMYCIN IVPB SCH (23:33)
[2018-06-20] MEDS ORDERED: NA CHLORIDE 0.9% 1,000 ML IV SCH (23:33)
[2018-06-20] MEDS ORDERED: KETOROLAC 30 MG/ML INJ IV PRN (23:33)
[2018-06-20] MEDS ORDERED: D50W 25 GM/50 ML SYRINGE IV PRN (23:33)
[2018-06-21] MEDS: MORPHINE 2 MG/ML SYR IV PRN ×2 (01:16→21:49)
[2018-06-21] MEDS ORDERED: Levofloxacin 750mg IV 750 MG/150 ML BAG IV SCH (02:00)
[2018-06-21] MEDS ORDERED: DAPTOmycin 800 MG in NA CHLORIDE 0.9% 100 ML IVPB SCH ×2 (02:05→09:00)
[2018-06-21] MEDS ORDERED: FUROSEMIDE 40 MG/4 ML VIAL IV ONE (05:03)
[2018-06-21 05:04] LABS: Urine Appearance CLEAR; Urine Bilirubin NEGATIVE (NEG); Urine Blood NEGATIVE (NEG); Urine Color DK YELLOW; Urine Glucose NEGATIVE (NEG); Urine Protein NEGATIVE (NEG); Urine Specific Gravity 1.025 (1.005-1.030); Urine Urobilinogen 0.2 mg/dL (0.2-1.0); Urine pH 5.5 (5.0-7.0)
[2018-06-21 05:08] LABS: Urine Microscopic Reflex ORDER UMIC
[2018-06-21 05:48] LABS: Urine Bacteria <20 /HPF (NONE SEEN); Urine Culture Reflex Order REFLEXED; Urine RBC NONE SEEN /HPF (NONE SEEN)
[2018-06-21 05:51] LABS: Absolute Lymphocytes (CBC) 1.2 K/uL (0.7-4.9); Absolute Monocytes 0.6 K/uL (0.1-1.3); Absolute Neutrophil 4.9 K/uL (1.8-8.0); Eosinophils % 5.1 % (0-4.4); Hematocrit 42.5 % (39.6-49.0); Lymphocytes % 16.7 % (15.3-44.8); MPV 9.2 fL (7.6-11.3); Monocytes % 8.9 % (3.3-12.3); RBC Red Blood Cell Count 4.83 M/uL (4.33-5.43)
[2018-06-21 06:12] LABS: BUN Blood Urea Nitrogen 9 mg/dL (7-18); Bicarbonate 28 mmol/L (21-32); Glucose Level 152 mg/dL (74-106); Potassium 3.8 mmol/L (3.5-5.1); Sodium Level 142 mmol/L (136-145)
[2018-06-21] MEDS: INSULIN -REGULAR HUMAN 50 UNIT/0.5 ML ML SQ SCH ×4 (07:30→21:00)
[2018-06-21] MEDS ORDERED: POTASSIUM 25 MEQ EFFERV TAB PO ONE (09:00)
[2018-06-21] MEDS: ENOXAPARIN 40 MG/0.4 ML SQ SCH (11:22)
--- NOTE | 2018-06-21 12:37 | EKG ---
Test Date: 2018-06-20 Test Time: 20:24:46 Assault Amphibious Vehicle Officer: SHERLYN MEASUREMENT RESULTS: Intervals: Rate: 77 GA: 160 QRSD: 86 QT: 424 QTc: 479 [place]: P: 52 GA: 160 QRS: 20 T: 38 INTERPRETIVE STATEMENTS: Normal sinus rhythm Normal ECG Compared to ECG 10/22/2017 13:34:37 No significant changes Electronically Signed On 06-21-18 12:36:29 DIESEL ROLLER OPERATOR by Gregorio Leong
--- NOTE | 2018-06-21 17:20 | CON ---
This is a known patient [facility] and previous hospitalizations. The patient comi ng in with lymphedema and infected right lower extremity stasis ulcer. The patient also has a stasis ulcer to the left side. Initial admission, the patient had a temperature of 100.4 and was quite aristeo rt of breath. Denies any headache, nausea, vomiting, chest pain, abdominal pain, constipation, or di arrhea. Past Medical History: Hypertension, hypercholesteremia, lymphedema, congestive heart failure, cardio megaly, myocardial infarction, morbid obesity, COPD, sleep apnea, cellulitis, appendectomy, cholecyst ectomy, tonsillectomy, left shoulder surgery, facial surgery. Family History: Heart disease, congestive heart failure, hypertension, diabetes mellitus, cancer, li ca disease, scoliosis, breast cancer. Social History: Nonsmoker, nondrinker. Lives in a hotel room since [place]. Current Medications: Daptomycin, Levaquin. Allergies: VANCOMYCIN, SOYBEAN, ANESTHESIA. Review of Systems: A 10-point review was performed. Physical Examination: General: This is a 57-year-old male, lying in bed, not in any acute cardiopulmonary distress. Vital Signs: Temperature 97, pulse 72, respirations 17, blood pressure 127/58. HEENT: Unremarkable. Neck: Supple. Lungs: Basal crackles. Heart: S1, S2. Regular. Abdomen: Soft. Bowel sounds present. Extremities: 4+ nonpitting edema with foul smelling large wound noted on right and left leg. Right leg wound is 25 x 15 cm. Left leg wound is 15 x 11 cm with dry scaly lesions surrounding the wound s ite and rest of the legs. Laboratory Data: Shows WBC 7.2, hemoglobin 14.5, platelets are 340. Chemistry shows sodium 142, pot assium 3.8, chloride 108, bicarb 28, BUN 9, creatinine 0.78, glucose is 150. Blood cultures are pend ing. Urine cultures are pending. Chest x-ray, no acute abnormality displayed. Assessment And Plan: Cellulitis and lymphedema in a 57-year-old male with morbid obesity and diabete s mellitus and congestive heart failure. The patient also has large infected stasis ulcer to the rig ht leg and the left leg. We will recommend to continue antibiotic at this time, doxycycline 100 mg q .12 hours and cefepime 1 g q.12 hours. We will follow the patient closely. Thank you Dr. Urrutia for consult. DARREN/KIMBERLY Voice ID: [id number] Report ID: [id number]
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
[2018-06-21] MEDS: DOXYCYCLINE 100 MG in NA CHLORIDE 0.9% 100 ML IVPB SCH (21:00)
[2018-06-21] MEDS ORDERED: CEFEPIME 1 GM/VIAL IV SCH (21:00)
[2018-06-21] MEDS: CEFEPIME/SWI 1gm 10 ML IV SCH (21:50)
[2018-06-22 07:11] LABS: BUN Blood Urea Nitrogen 9 mg/dL (7-18); Bicarbonate 32 mmol/L (21-32); Glucose Level 119 mg/dL (74-106); Potassium 3.9 mmol/L (3.5-5.1); Sodium Level 143 mmol/L (136-145)
[2018-06-22] MEDS: INSULIN -REGULAR HUMAN 50 UNIT/0.5 ML ML SQ SCH ×4 (07:30→20:52)
[2018-06-22] MEDS: DOXYCYCLINE 100 MG in NA CHLORIDE 0.9% 100 ML IVPB SCH ×2 (08:38→20:04)
[2018-06-22] MEDS: LISINOPRIL 20 MG TAB PO SCH (08:39)
[2018-06-22] MEDS: ENOXAPARIN 40 MG/0.4 ML SQ SCH (08:39)
[2018-06-22] MEDS: POTASSIUM CL SA 10 MEQ TAB PO SCH (08:40)
[2018-06-22] MEDS: CEFEPIME/SWI 1gm 10 ML IV SCH ×2 (08:41→20:04)
[2018-06-22] MEDS ORDERED: FUROSEMIDE 40 MG TABLET PO SCH (09:00)
[2018-06-22] MEDS: FUROSEMIDE 40 MG TABLET PO SCH (16:53)
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
[2018-06-23 05:40] LABS: Hematocrit 38.5 % (39.6-49.0); RBC Red Blood Cell Count 4.42 M/uL (4.33-5.43)
[2018-06-23 05:41] LABS: Absolute Lymphocytes (CBC) 1.7 K/uL (0.7-4.9); Absolute Monocytes 0.6 K/uL (0.1-1.3); Absolute Neutrophil 3.8 K/uL (1.8-8.0); Basophils % 0.7 % (0-1.3); Eosinophils % 4.9 % (0-4.4); Lymphocytes % 26.7 % (15.3-44.8); MPV 9.4 fL (7.6-11.3); Monocytes % 9.5 % (3.3-12.3)
[2018-06-23 05:53] LABS: BUN Blood Urea Nitrogen 9 mg/dL (7-18); Bicarbonate 31 mmol/L (21-32); Glucose Level 102 mg/dL (74-106); Potassium 3.6 mmol/L (3.5-5.1); Sodium Level 142 mmol/L (136-145)
[2018-06-23] MEDS: INSULIN -REGULAR HUMAN 50 UNIT/0.5 ML ML SQ SCH ×4 (07:30→21:00)
[2018-06-23] MEDS ORDERED: POTASSIUM CL SA 10 MEQ TAB PO ONE (09:00)
[2018-06-23] MEDS: FUROSEMIDE 40 MG TABLET PO SCH (09:04)
[2018-06-23] MEDS: LISINOPRIL 20 MG TAB PO SCH (09:05)
[2018-06-23] MEDS: POTASSIUM CL SA 10 MEQ TAB PO SCH (09:06)
[2018-06-23] MEDS: ENOXAPARIN 40 MG/0.4 ML SQ SCH (09:07)
[2018-06-23] MEDS: CEFEPIME/SWI 1gm 10 ML IV SCH ×2 (09:07→22:40)
[2018-06-23] MEDS: DOXYCYCLINE 100 MG in NA CHLORIDE 0.9% 100 ML IVPB SCH ×2 (09:07→22:44)
--- NOTE | 2018-06-23 12:39 | RAD REPORT ---
EXAM DESCRIPTION: X-ray single view chest. CLINICAL HISTORY: 57 years Male, PICC Placement COMPARISON: None. TECHNIQUE: Single portable view of the chest performed on 06/23/2018 at 12:55 AM FINDINGS: The lungs are well expanded. There is diffuse coarsening of the interstitial lung markings without dense airspace consolidation. The lateral costophrenic sulci are clear. There is no evidence of a pneumothorax. The cardiac silhouette is prominent and may be accentuated by the portable technique. The mediastinal contours are normal. No acute osseous abnormality is identified. No focal soft tissue abnormalities are seen. Lines and tubes: A right upper extremity PICC line catheter is present which overlies the region of the superior vena cava. IMPRESSION: 1. The tip of the right upper extremity PICC line catheter overlies the region of the wang perior vena cava. 2. Diffuse coarsening of the interstitial lung markings without dense airspace consolidation. Electronically signed by: Diane Christie DO 06/23/2018 1:06 AM APPLICATION TECHNICIAN Due to temporary technical issues with the PACS/Fluency reporting system, reports are being signed by the in house radiologist as a courtesy to ensure prompt reporting. The interpreting radiologist is f ully responsible for the content of the report.
[2018-06-23] MEDS: FUROSEMIDE 40 MG/4 ML VIAL IV SCH (18:25)
--- NOTE | 2018-06-23 20:52 | PN ---
Date of Progress Note: 06/23/2018 Subjective: The patient is seen and examined. Chart reviewed and case discussed with RN. The patie nt is still awaiting LTAC placement. Still has some swelling of his legs. Denies any specific short ness of breath. Medications: List reviewed. Physical Examination: Vital Signs: Temperature 97.1, heart rate 80, blood pressure 117/68, respirations 20, O2 95% on room air. General: Awake, alert, oriented x3. Morbidly obese male. BMI 66. CV: S1, S2. Regular rate and rhythm. Peripheral pulses present. Respiratory: Diminished breath sounds. Some crackles heard. No wheezing or stridor. Gastrointestinal: Abdomen is soft, nontender, and nondistended. Positive bowel sounds. Extremities: No clubbing or cyanosis. The patient has diffuse anasarca of the lower extremities. Neurologic: Nonfocal. Skin: Chronic venous stasis changes of bilateral lower extremities. Laboratory Data: Sodium 142, potassium 3.6, chloride 106, CO2 of 31, BUN 9, creatinine 0.57, glucose 102, calcium 8.2. WBC 6.5, H and H of 13 and 38.5, platelets 279. Blood culture showing no growth to date. Chest x-ray for a PICC line placement shows tip of right upper extremity overlies the regio n of the superior vena cava, diffuse coarsening of the interstitial lung markings without dense airsp анна consolidation. Assessment And Plan: A 57-year-old male with; 1.Cellulitis of the right lower extremity. We will continue with cefepime and doxycycline. His blo od cultures are negative to date. ID on board secondary to chronic lymphedema. 2.Chronic lymphedema. Continue compression wrapping. Have lower extremities elevated. Continue wi th air mattress and wound care. 3.Congestive heart failure, diastolic dysfunction, acute on chronic. We will switch over to IV Lasi x. Chest x-ray today showed some changes consistent with volume overload. The patient is not requir ing any supplemental oxygen at this time. 4.Obstructive sleep apnea. We will continue CPAP at night. 5.Diabetes mellitus type 2 without long-term use of insulin with skin complications. Continue slidi ng scale insulin and monitor Accu-Cheks. 6.Morbid obesity. BMI of 66. 7.Chronic obstructive pulmonary disease, chronic bronchitis, stable. 8.Essential hypertension, stable. 9.Deep venous thrombosis prophylaxis with Lovenox. PLAN: Discharge to LTAC once accepted. The patient will be on IV antibiotics per Infectious Disease recommendations. PICC line has been placed. /KIMBERLY Voice ID: [id number] Report ID: [id number]
[2018-06-24 07:01] LABS: Absolute Lymphocytes (CBC) 1.5 K/uL (0.7-4.9); Absolute Monocytes 0.6 K/uL (0.1-1.3); Absolute Neutrophil 3.3 K/uL (1.8-8.0); Basophils % 0.9 % (0-1.3); Eosinophils % 5.8 % (0-4.4); Hematocrit 38.3 % (39.6-49.0); Lymphocytes % 26.6 % (15.3-44.8); MPV 9.7 fL (7.6-11.3); Monocytes % 9.7 % (3.3-12.3); RBC Red Blood Cell Count 4.39 M/uL (4.33-5.43)
[2018-06-24 07:07] LABS: BUN Blood Urea Nitrogen 11 mg/dL (7-18); Bicarbonate 31 mmol/L (21-32); Glucose Level 104 mg/dL (74-106); Potassium 3.6 mmol/L (3.5-5.1); Sodium Level 143 mmol/L (136-145)
[2018-06-24] MEDS: INSULIN -REGULAR HUMAN 50 UNIT/0.5 ML ML SQ SCH ×5 (07:30→22:42)
[2018-06-24] MEDS: POTASSIUM CL SA 10 MEQ TAB PO SCH (09:12)
[2018-06-24] MEDS: FUROSEMIDE 40 MG/4 ML VIAL IV SCH ×2 (09:12→16:41)
[2018-06-24] MEDS: CEFEPIME/SWI 1gm 10 ML IV SCH ×2 (09:13→22:42)
[2018-06-24] MEDS: ENOXAPARIN 40 MG/0.4 ML SQ SCH (09:13)
[2018-06-24] MEDS: LISINOPRIL 20 MG TAB PO SCH (09:14)
[2018-06-24] MEDS: DOXYCYCLINE 100 MG in NA CHLORIDE 0.9% 100 ML IVPB SCH ×2 (09:32→22:41)
--- NOTE | 2018-06-24 13:07 | P.PN ---
Subjective Date of Service: 06/24/18 Chief Complaint: cellulitis Patient seen and examined at bedside with RN. Chart reviewed. Case discussed with ID at this time. Patient currently awaiting long-term acute care placement. Status post PICC line placement. Review of Systems 10-point ROS is otherwise unremarkable Physical Examination - Vital Signs Temperature: 97.2 F Blood Pressure: 130/71 Pulse: 71 Respirations: 18 Pulse Ox (%): 93 - Physical Exam General: Alert, In no apparent distress, Obese HEENT: Atraumatic, PERRLA, EOMI Neck: Supple, JVD not distended Respiratory: Clear to auscultation bilaterally, Normal air movement Cardiovascular: Regular rate/rhythm, Normal S1 S2 Gastrointestinal: Normal bowel sounds, No tenderness Musculoskeletal: Swelling, Erythema, Tenderness, Warmth Integumentary: Tenderness/swelling, Erythema, Warmth Neurological: Normal speech, Normal tone, Normal affect Lymphatics: No axilla or inguinal lymphadenopathy - Studies Medications List Reviewed: Yes Assessment And Plan - Current Problems (Diagnosis) (1) Cellulitis Onset Date: 10/24/17 Current Visit: No Status: Acute Plan: Bilateral cellulitis of the lower extremity most likely secondary to chronic lymphedema -We will continue with cefepime and doxycycline IV at this time. -His blood and wound cultures are negative -ID on board secondary to chronic lymphedema -recommends long-term acute care facility with IV antibiotics. -wound care consulted for extensive wound care daily Qualifiers: Site of cellulitis: extremity Laterality: right (2) CHF with left ventricular diastolic dysfunction, NYHA class 1 Onset Date: 01/12/17 Current Visit: No Status: Chronic Plan: Congestive heart failure, diastolic dysfunction, acute on chronic. - on IV Lasix at this time -will continue to monitor closely (3) Chronic acquired lymphedema Onset Date: 01/12/17 Current Visit: No Status: Chronic Plan: Chronic lymphedema. - Continue compression wrapping. Have lower extremities elevated. Continue with air mattress and wound care. (4) COPD (chronic obstructive pulmonary disease) Current Visit: No Status: Chronic Qualifiers: COPD type: chronic bronchitis Chronic bronchitis type: unspecified Qualified Code(s): J42 - Unspecified chronic bronchitis (5) GERD (gastroesophageal reflux disease) Current Visit: No Status: Chronic Qualifiers: Esophagitis presence: esophagitis presence not specified Qualified Code(s) : K21.9 - Gastro-esophageal reflux disease without esophagitis (6) Hyperlipidemia Current Visit: No Status: Chronic Qualifiers: Hyperlipidemia type: unspecified Qualified Code(s): E78.5 - Hyperlipidemia , unspecified (7) Hypertension Onset Date: 01/12/17 Current Visit: No Status: Chronic Qualifiers: Hypertension type: essential hypertension Qualified Code(s): I10 - Essential (primary) hypertension (8) Morbid obesity Onset Date: 01/12/17 Current Visit: No Status: Chronic (9) Obesity hypoventilation syndrome Onset Date: 01/12/17 Current Visit: No Status: Chronic (10) Type 2 diabetes mellitus Onset Date: 01/12/17 Current Visit: No Status: Chronic Qualifiers: Diabetes mellitus mcfp insulin use: without optometrist owner use Diabetes mellitus complication status: with skin complications Diabetes mellitus complication detail: with other skin complication Qualified Code(s): E11.628 - Type 2 diabetes mellitus with other skin complications - Plan Pending clinical improvement at this time. Currently awaiting long-term acute care placement for IV antibiotics along with extensive wound care. Discharge Plan: LTAC Plan to discharge in: 72 Hours - Code Status/Comfort Care Code Status Assessed: Yes Critical Care: No
[2018-06-25 05:11] LABS: Absolute Lymphocytes (CBC) 1.7 K/uL (0.7-4.9); Absolute Monocytes 0.6 K/uL (0.1-1.3); Absolute Neutrophil 3.7 K/uL (1.8-8.0); Eosinophils % 6.6 % (0-4.4); MPV 9.5 fL (7.6-11.3); Monocytes % 9.2 % (3.3-12.3); RBC Red Blood Cell Count 4.47 M/uL (4.33-5.43)
[2018-06-25 05:30] LABS: BUN Blood Urea Nitrogen 11 mg/dL (7-18); Bicarbonate 32 mmol/L (21-32); Glucose Level 140 mg/dL (74-106); Potassium 3.4 mmol/L (3.5-5.1); Sodium Level 141 mmol/L (136-145)
[2018-06-25] MEDS ORDERED: POTASSIUM 25 MEQ EFFERV TAB PO ONE (05:33)
[2018-06-25] MEDS: INSULIN -REGULAR HUMAN 50 UNIT/0.5 ML ML SQ SCH ×4 (07:30→20:14)
[2018-06-25] MEDS: POTASSIUM CL SA 10 MEQ TAB PO SCH (09:00)
[2018-06-25] MEDS: FUROSEMIDE 40 MG/4 ML VIAL IV SCH ×3 (09:00→17:00)
[2018-06-25] MEDS: DOXYCYCLINE 100 MG in NA CHLORIDE 0.9% 100 ML IVPB SCH ×2 (09:55→20:09)
[2018-06-25] MEDS: ENOXAPARIN 40 MG/0.4 ML SQ SCH (09:56)
[2018-06-25] MEDS: CEFEPIME/SWI 1gm 10 ML IV SCH ×2 (09:56→20:09)
[2018-06-25] MEDS: LISINOPRIL 20 MG TAB PO SCH (09:56)
--- NOTE | 2018-06-25 10:46 | P.PN ---
Subjective Date of Service: 06/25/18 Chief Complaint: cellulitis Patient seen and examined at bedside with RN. Chart reviewed. Case discussed with ID at this time. Patient currently awaiting long-term acute care placement. Status post PICC line placement. Review of Systems 10-point ROS is otherwise unremarkable Physical Examination - Vital Signs Temperature: 97.0 F Blood Pressure: 142/63 Pulse: 75 Respirations: 20 Pulse Ox (%): 93 - Physical Exam General: Alert, In no apparent distress, Obese HEENT: Atraumatic, PERRLA, EOMI Neck: Supple, JVD not distended Respiratory: Clear to auscultation bilaterally, Normal air movement Cardiovascular: Regular rate/rhythm, Normal S1 S2 Gastrointestinal: Normal bowel sounds, No tenderness Musculoskeletal: Erythema, Tenderness, Warmth Integumentary: No rashes Neurological: Normal speech, Normal tone, Normal affect Lymphatics: No axilla or inguinal lymphadenopathy - Studies Medications List Reviewed: Yes Assessment And Plan - Current Problems (Diagnosis) (1) Cellulitis Onset Date: 10/24/17 Current Visit: No Status: Acute Plan: Bilateral cellulites of the lower extremity most likely secondary to chronic lymphedema -We will continue with cefepime and doxycycline IV at this time. -His blood and wound cultures are negative -ID on board secondary to chronic lymphedema -recommends long-term acute care facility with IV antibiotics. -wound care consulted for extensive wound care daily Qualifiers: Site of cellulitis: extremity Laterality: right (2) CHF with left ventricular diastolic dysfunction, NYHA class 1 Onset Date: 01/12/17 Current Visit: No Status: Chronic Plan: Congestive heart failure, diastolic dysfunction, acute on chronic. -on IV Lasix at this time -will continue to monitor closely (3) Chronic acquired lymphedema Onset Date: 01/12/17 Current Visit: No Status: Chronic Plan: Chronic lymphedema. - Continue compression wrapping. Have lower extremities elevated. Continue with air mattress and wound care. (4) COPD (chronic obstructive pulmonary disease) Current Visit: No Status: Chronic Qualifiers: COPD type: chronic bronchitis Chronic bronchitis type: unspecified Qualified Code(s): J42 - Unspecified chronic bronchitis (5) GERD (gastroesophageal reflux disease) Current Visit: No Status: Chronic Qualifiers: Esophagitis presence: esophagitis presence not specified Qualified Code(s) : K21.9 - Gastro-esophageal reflux disease without esophagitis (6) Hyperlipidemia Current Visit: No Status: Chronic Qualifiers: Hyperlipidemia type: unspecified Qualified Code(s): E78.5 - Hyperlipidemia , unspecified (7) Hypertension Onset Date: 01/12/17 Current Visit: No Status: Chronic Qualifiers: Hypertension type: essential hypertension Qualified Code(s): I10 - Essential (primary) hypertension (8) Morbid obesity Onset Date: 01/12/17 Current Visit: No Status: Chronic (9) Obesity hypoventilation syndrome Onset Date: 01/12/17 Current Visit: No Status: Chronic (10) Type 2 diabetes mellitus Onset Date: 01/12/17 Current Visit: No Status: Chronic Qualifiers: Diabetes mellitus practice business asst insulin use: without penitentiary use Diabetes mellitus complication status: with skin complications Diabetes mellitus complication detail: with other skin complication Qualified Code(s): E11.628 - Type 2 diabetes mellitus with other skin complications - Plan Pending clinical improvement at this time. Currently awaiting long-term acute care placement for IV antibiotics along with extensive wound care. Discharge Plan: LTAC Plan to discharge in: 48 Hours - Code Status/Comfort Care Code Status Assessed: Yes Critical Care: No
[2018-06-25 20:42] VITALS: BMI 58.5
[2018-06-26 04:41] LABS: BUN Blood Urea Nitrogen 11 mg/dL (7-18); Bicarbonate 32 mmol/L (21-32); Glucose Level 111 mg/dL (74-106); Potassium 3.7 mmol/L (3.5-5.1); Sodium Level 143 mmol/L (136-145)
[2018-06-26] MEDS: INSULIN -REGULAR HUMAN 50 UNIT/0.5 ML ML SQ SCH ×4 (07:30→21:00)
[2018-06-26] MEDS: ENOXAPARIN 40 MG/0.4 ML SQ SCH (10:29)
[2018-06-26] MEDS: POTASSIUM CL SA 10 MEQ TAB PO SCH (10:29)
[2018-06-26] MEDS: FUROSEMIDE 40 MG/4 ML VIAL IV SCH ×2 (10:29→17:20)
[2018-06-26] MEDS: DOXYCYCLINE 100 MG in NA CHLORIDE 0.9% 100 ML IVPB SCH ×2 (10:29→21:18)
[2018-06-26] MEDS: CEFEPIME/SWI 1gm 10 ML IV SCH ×2 (10:29→21:18)
[2018-06-26] MEDS: LISINOPRIL 20 MG TAB PO SCH (10:30)
--- NOTE | 2018-06-26 14:26 | P.DS ---
Admission Date: 06/20/18 Discharge Date: 06/26/18 Disposition: ROUTINE DISCHARGE Discharge Condition: GOOD Reason for Admission: cellulitis Consultations: ID - Problems (1) Cellulitis Onset Date: 10/24/17 Current Visit: No Status: Acute Qualifiers: Site of cellulitis: extremity Laterality: right (2) CHF with left ventricular diastolic dysfunction, NYHA class 1 Onset Date: 01/12/17 Current Visit: No Status: Chronic (3) Chronic acquired lymphedema Onset Date: 01/12/17 Current Visit: No Status: Chronic (4) COPD (chronic obstructive pulmonary disease) Current Visit: No Status: Chronic Qualifiers: COPD type: chronic bronchitis Chronic bronchitis type: unspecified Qualified Code(s): J42 - Unspecified chronic bronchitis (5) GERD (gastroesophageal reflux disease) Current Visit: No Status: Chronic Qualifiers: Esophagitis presence: esophagitis presence not specified Qualified Code(s) : K21.9 - Gastro-esophageal reflux disease without esophagitis (6) Hyperlipidemia Current Visit: No Status: Chronic Qualifiers: Hyperlipidemia type: unspecified Qualified Code(s): E78.5 - Hyperlipidemia , unspecified (7) Hypertension Onset Date: 01/12/17 Current Visit: No Status: Chronic Qualifiers: Hypertension type: essential hypertension Qualified Code(s): I10 - Essential (primary) hypertension (8) Morbid obesity Onset Date: 01/12/17 Current Visit: No Status: Chronic (9) Obesity hypoventilation syndrome Onset Date: 01/12/17 Current Visit: No Status: Chronic (10) Type 2 diabetes mellitus Onset Date: 01/12/17 Current Visit: No Status: Chronic Qualifiers: Diabetes mellitus mcfp insulin use: without bar pointer use Diabetes mellitus complication status: with skin complications Diabetes mellitus complication detail: with other skin complication Qualified Code(s): E11.628 - Type 2 diabetes mellitus with other skin complications Brief History of Present Illness: Mr Lin is a 57 years old male with history of morbid obesity, lymphedema, chronic LE extremity wounds, who came to ED complaining of increasing pain and secretions from his right leg. He also had fever at home, about 100.4F, and has been more sleepy than usual. The patient has been followed up by Dr Duarte and wound care team. His wound has foul smelling yellowish secretion. At arrival he was afebrile. Lab work shows normal WBC count, lactate and procalcitonin. Hospital Course: Overall during the hospital stay patient remained stable Patient was initially admitted to the hospital for right lower leg extremity cellulitis. Patient has chronic lymphedema which causes him to have chronic venous stasis along with increased risk for skin infection. Patient was started on IV antibiotics here in the hospital along with extensive wound care. Patient was seen by infectious disease doctor here in the hospital who recommended the patient get placement at long-term acute care facility for IV antibiotics and extensive wound care. Patient was approved go to [facility] and was transferred over there under stable condition. Patient was started initially in the hospital on IV doxycycline along with cefepime which were continued on discharge. Patient was to get hyperbaric treatment if no improvement in wound was noted at the long-term acute care facility. Vital Signs/Physical Exam: Temp Pulse Resp BP Pulse Ox 96.7 F L 64 18 161/70 H 98 06/26/18 12:00 06/26/18 12:00 06/26/18 12:00 06/26/18 12:00 06/26/18 12:00 General: Alert, In no apparent distress HEENT: Atraumatic, PERRLA, EOMI Neck: Supple, JVD not distended Respiratory: Clear to auscultation bilaterally, Normal air movement Cardiovascular: Regular rate/rhythm, Normal S1 S2 Gastrointestinal: Normal bowel sounds, No tenderness Musculoskeletal: Erythema, Tenderness, Warmth Integumentary: Rash(es) Neurological: Normal speech, Normal tone, Normal affect Lymphatics: No axilla or inguinal lymphadenopathy Laboratory Data at Discharge: WBC 6.5 K/uL (4.3-10.9) 06/25/18 04:30 Hgb 13.2 g/dL (13.6-17.9) L 06/25/18 04:30 Hct 39.0 % (39.6-49.0) L 06/25/18 04:30 Plt Count 294 K/uL (152-406) 06/25/18 04:30 PT 13.5 SECONDS (9.5-12.5) H 06/20/18 19:45 INR 1.15 06/20/18 19:45 Sodium 143 mmol/L (136-145) 06/26/18 04:10 Potassium 3.7 mmol/L (3.5-5.1) 06/26/18 04:10 BUN 11 mg/dL (7-18) 06/26/18 04:10 Creatinine 0.58 mg/dL (0.55-1.3) 06/26/18 04:10 Glucose 111 mg/dL (74-106) H 06/26/18 04:10 Magnesium 2.0 mg/dL (1.8-2.4) 06/24/18 05:43 Total Bilirubin 0.5 mg/dL (0.2-1.0) 06/20/18 19:45 AST 20 U/L (15-37) 06/20/18 19:45 ALT 22 U/L (12-78) 06/20/18 19:45 Alkaline Phosphatase 142 U/L (45-117) H 06/20/18 19:45 Lipase 61 U/L (73-393) L 06/20/18 19:45 Home Medications: Potassium Chloride [K-Dur] 20 meq PO DAILY 01/11/17 Furosemide [Lasix*] 40 mg PO BID 10/22/17 Lisinopril [Prinivil*] 20 mg PO DAILY 10/22/17 Metformin ER [Glucophage ER*] 500 mg PO BID 06/21/18 Arformoterol Tartrate [Brovana] 2 ml IH DAILY 06/25/18 Aspirin [Aspirin EC 81 MG] 1 tab PO DAILY 06/25/18 Atorvastatin Calcium [Lipitor] 1 tab PO BEDTIME 06/25/18 Famotidine [Pepcid*] 1 tab PO DAILY 06/25/18 Glipizide [Glucotrol] 1 tab PO DAILY 06/25/18 Isosorbide Mononitrate [Isosorbide Mononitrate ER] 1 tab PO DAILY 06/25/18 Pregabalin [Lyrica*] 1 tab PO TID 06/25/18 Spironolactone [Aldactone*] 1 tab PO BID 06/25/18 Diet: Regular Activity: Ad da
[2018-06-26 23:06] VITALS: BP 140/77; TEMP 97.4
[2018-06-27 00:47] VITALS: O2SAT 97
== END 2018-06-26 23:45 | DRG 602 ==
LOC: ER 18:48 → ERHOLD 22:14 → 2ND 23:15
PROVIDERS: ADMIT Internal Medicine; ATTEND Family Medicine
PROC: 5A09457 Assistance with Respiratory Ventilation, 24-96 Consecutive Hours, Continuous Positive Airway Pressure (ICD-10-PCS; 2018-06-20)
PROC: 02HV33Z Insertion of Infusion Device into Superior Vena Cava, Percutaneous Approach (ICD-10-PCS; principal; 2018-06-23)
PROC: B548ZZA Ultrasonography of Superior Vena Cava, Guidance (ICD-10-PCS; 2018-06-23)
DX: L03.116 Cellulitis of left lower limb (principal); I50.33 Acute on chronic diastolic (congestive) heart failure; E66.2 Morbid (severe) obesity with alveolar hypoventilation; Z68.44 Body mass index [BMI] 60.0-69.9, adult; L97.919 Non-pressure chronic ulcer of unspecified part of right lower leg with unspecified severity; L97.929 Non-pressure chronic ulcer of unspecified part of left lower leg with unspecified severity; L03.115 Cellulitis of right lower limb; I11.0 Hypertensive heart disease with heart failure; J42 Unspecified chronic bronchitis; I89.0 Lymphedema, not elsewhere classified; E11.628 Type 2 diabetes mellitus with other skin complications; Z79.84 Long term (current) use of oral hypoglycemic drugs; Z88.4 Allergy status to anesthetic agent; Z88.1 Allergy status to other antibiotic agents; K21.9 Gastro-esophageal reflux disease without esophagitis; I83.009 Varicose veins of unspecified lower extremity with ulcer of unspecified site; E78.5 Hyperlipidemia, unspecified; I51.7 Cardiomegaly; I25.2 Old myocardial infarction
CPT/HCPCS: 36415; 71045; 80048; 80076; 81003; 81015; 82962; 83605; 83690; 83735; 83880; 84132; 84145; 84484; 85025; 85610; 87040; 87086; 87088; 93005; 94660; 94760; 96365; 96367; 96375; 99285; J0692; J0878; J1650; J1940; J2270; J2405; J2543; J7030

== ENCOUNTER 2019-03-22 19:13 | Inpatient (IN) | payer OTHER ==
--- OUTSIDE RECORDS SUMMARY | 2019-03-22 19:15 | XMS REPORT | Continuity of Care Document ---
:1960 Author Organization [facility] Address [address] [place] [address] Phone Unavailable Care Team Providers Name Role Phone IVÁN JOSHI MD Primary Care Physician Unavailable Insurance Providers Guarantor Naida Perez Address [address] [place] [address] Email [email or web address] Policy Number [id number] Subscriber's Name Naida Perez Relationship Self / Same As Patient Group Number [id number] Group Name NA Effective Date 04 Advance Directives Directive Response Recorded Date/Time Advance Directive on File No 11/28/18 3:53pm Chief Complaint and Reason for Visit Chief Complaint General Complaint Reason for Visit UTI (urinary tract infection) Problems Medical Problem Onset Date Status Cellulitis [...] obesity Unknown Acute UTI (urinary tract infection) Unknown Acute UTI (urinary tract infection) with pyuria Unknown Acute Medications Current Home Medications Medication Dose Units Route Directions Days Qty Instructions Start Date Aspirin (Aspirin 325 Mg ORAL Every Morning 09/27/12 *) 325 Mg Tab Atorvastatin 20 Mg ORAL Once Daily 11/06/12 Calcium (Lipitor *) 20 Mg Tab Carvedilol 3.125 Mg ORAL Twice Daily 60 11/06/12 (Coreg *) 3.125 With Meals Mg Tab Cefpodoxime 200 Mg ORAL Every 12 Hours 20 Tablet 11/28/18 Proxetil for Unknown (Vantin*) 100 Mg Tab Clopidogrel 75 Mg ORAL Once [...] A Day 14 Tablet /Tmp 800/160 Mg (Bactrim Ds 800/160 Mg) 1 Tab Tab Past Home Medications Medication Directions Ordered Status Atorvastatin Calcium (Lipitor *) 20 Mg Once Daily 09/27/12 Discontinued Tab, 20 Mg Oral Carvedilol (Coreg *) [...] Onset Date Status Hx Physical Abuse No 11/28/2018 3:53pm Not Applicable Not Applicable Smoking Status Start Date Stop Date Never smoker Hospital Discharge Instructions No hospital discharge instruction information available. Plan of Care Discharge Date 11/28/18 6:31pm Condition at Discharge Stable Instructions/Education Provided Urinary Tract Infection, Adult Forms Provided Prescription Opioid Use Portal Welcome Letter Prescriptions See Medication Section Referrals IVÁN JOSHI MD Address: [address] [place] [address] Functional Status No functional status information available. Allergies, Adverse Reactions, Alerts Allergen Type Severity Reaction Status Last Updated No Known Allergies Allergy Unknown Active 08/04/13 Immunizations No immunization information available. Vital Signs Acute Vital Signs Vital Response Date/Time Blood Pressure 129/78 mm Hg 11/28/2018 6:30pm Pulse Pulse Rate (adult) 88 beats per minute (60 - 100) 11/28/2018 6:30pm Respiratory Rate 24 breaths per minute (10 - 24) 11/28/2018 6:30pm Temperature Source Oral 11/28/2018 6:30pm Height 5 ft 10 in 11/28/2018 3:53pm Weight 400 lb 11/28/2018 3:53pm Body Mass Index 57.4 kg/m^2 11/28/2018 3:53pm Results Laboratory Results Test Name Result Units Flags Reference Collection Result Comments Date/Time Date/Time Urine Color YELLOW 11/28/2018 11/28/2018 5:13pm 5:26pm Urine Appearance CLEAR CLEAR 11/28/2018 11/28/2018 5:13pm 5:26pm Urine Glucose NEGATIVE NEGATIVE 11/28/2018 11/28/2018 (UA) 5:13pm 5:26pm Urine Bilirubin NEGATIVE NEGATIVE 11/28/2018 11/28/2018 5:13pm 5:26pm Urine Ketones NEGATIVE NEGATIVE 11/28/2018 11/28/2018 5:13pm 5:26pm Urine Specific 1.012 1.003-1.030 11/28/2018 11/28/2018 [place] 5:13pm 5:26pm Urine Blood NEGATIVE NEGATIVE 11/28/2018 11/28/2018 5:13pm 5:26pm Urine pH 5.000 5-9 11/28/2018 11/28/2018 5:13pm 5:26pm Urine Protein NEGATIVE NEGATIVE 11/28/2018 11/28/2018 5:13pm 5:26pm Urine NORMAL mg/dL 0.2-1.0 11/28/2018 11/28/2018 Urobilinogen 5:13pm 5:26pm Urine Nitrate NEGATIVE NEGATIVE 11/28/2018 11/28/2018 5:13pm 5:26pm Urine Leukocyte 4+ H NEGATIVE 11/28/2018 11/28/2018 Esterase 5:13pm 5:26pm Urine RBC 1-5 /hpf 0-5 11/28/2018 11/28/2018 5:13pm 5:25pm Urine WBC 20-29 /hpf H 0-5 11/28/2018 11/28/2018 5:13pm 5:25pm Urine Epithelial 1-5 /hpf 0-5 11/28/2018 11/28/2018 Cells 5:13pm 5:25pm Urine Bacteria None /hpf None Detect 11/28/2018 11/28/2018 Detected 5:13pm 5:25pm Urine Casts 2-5 /lpf None Detect 11/28/2018 11/28/2018 5:13pm 5:25pm Urine Culture YES 11/28/2018 11/28/2018 Reflexed 5:13pm 5:25pm Procedures No procedure information available. Encounters Encounter Location Arrival/Admit Date Discharge/Depart Date Attending Provider Departed Branch 11/28/18 3:45pm 11/28/18 6:31pm [place], Emergency Room [facility] Recent Diagnosis
[2019-03-22] MEDS ORDERED: CLINDAMYCIN 900MG/D5W 900 MG/50 ML IVPB IV ONE (20:14)
[2019-03-22] MEDS ORDERED: NA CHLORIDE 0.9% 1,000 ML ONE (20:14)
--- NOTE | 2019-03-22 20:29 | RAD REPORT ---
EXAM DESCRIPTION: Jonathan Single View03/22/2019 8:21 pm CLINICAL HISTORY: fever COMPARISON: June 2018 FINDINGS: The lungs appear clear of acute infiltrate. Upper lobe vessels are prominent indicative o f pulmonary venous hypertension The heart is mildly enlarged
[2019-03-22 20:45] LABS: Protime INR 1.12
[2019-03-22 20:46] LABS: Absolute Lymphocytes (CBC) 1.8 K/uL (0.7-4.9); Basophils % 0.8 % (0-1.3); Hematocrit 43.6 % (39.6-49.0); RBC Red Blood Cell Count 4.91 M/uL (4.33-5.43)
[2019-03-22 21:09] LABS: ALT/SGPT 20 U/L (12-78); Albumin 2.9 g/dL (3.4-5.0); Alkaline Phosphatase 146 U/L (45-117); BUN Blood Urea Nitrogen 7 mg/dL (7-18); Bicarbonate 32 mmol/L (21-32); Bilirubin Direct 0.1 mg/dL (0-0.2); Bilirubin Total 0.5 mg/dL (0.2-1.0); CKMB Creatine Kinase MB < 1.0 ng/mL (0.3-3.6); Creatine Phosphokinase 55 U/L (39-308); Glucose Level 204 mg/dL (74-106); Lipase 166 U/L (73-393); Protein, Total 8.1 g/dL (6.4-8.2); Sodium Level 138 mmol/L (136-145); Troponin (Emerg Dept Use Only) < 0.02 ng/mL (0.0-0.045)
[2019-03-22 21:11] LABS: AST/SGOT 20 U/L (15-37); Potassium 3.9 mmol/L (3.5-5.1)
[2019-03-22 22:23] LABS: Urine Blood TRACE (NEG); Urine Glucose 1+ (NEG); Urine Protein NEGATIVE (NEG); Urine Specific Gravity >1.030 (1.005-1.030); Urine pH 5.5 (5.0-7.0)
[2019-03-22 22:46] LABS: Urine Bacteria 20-50 /HPF (NONE SEEN); Urine Culture Reflex Order REFLEXED
--- NOTE | 2019-03-23 01:58 | ER ---
Nurse's Notes [facility] Name: Juan J Lin Age: 58 yrs Sex: Male : 1960 Arrival Date: 03/22/2019 Time: 19:15 Bed 15 Private MD: Diagnosis: Cellulitis of right lower limb;Lymphedema, not elsewhere classified;Failed outpt therapy Presentation: 03/22 19:30 Presenting complaint: Patient states: "I was sent by the wound care doctor for possible jd3 gangrene in my legs.". Transition of care: patient was not received from another setting of care. Onset of symptoms was March 22, 2019. Risk Assessment: Do you want to hurt yourself or someone else? Patient reports no desire to harm self or others. Initial Sepsis Screen: Does the patient meet any 2 criteria? No. Patient's initial sepsis screen is negative. Does the patient have a suspected source of infection? Yes: Skin breakdown/wound. Care prior to arrival: None. 19:30 Method Of Arrival: Ambulatory jd3 19:30 Acuity: CHARLIE 3 jd3 Historical: - Allergies: 19:34 Vancomycin; jd3 19:34 Anesthesia- combative reaction; jd3 - Home Meds: 19:34 atorvastatin 40 mg Oral tab 1 tab once daily [Active]; carvedilol 3.125 mg Oral tab 1 jd3 tab 2 times per day [Active]; diclofenac sodium 75 mg Oral TbEC 2 times per day [Active]; furosemide 40 mg Oral tab 2 tabs once daily [Active]; glipizide 5 mg Oral tab [Active]; isosorbide mononitrate 30 mg Oral Tb24 1 tab once daily [Active]; lisinopril 5 mg Oral tab 1 tab once daily [Active]; metformin 500 mg Oral tr24 1 tab once daily [Active]; potassium chloride 20 mEq Oral cpER 1 tab once daily [Active]; spironolactone 25 mg Oral tab 1 tab once daily [Active]; Tramadol Oral [Active]; - PMHx: 19:34 Myocardial infarction; Hypertension; CHF; cardiomegaly; jd3 - PSHx: 19:34 Appendectomy; Cholecystectomy; jd3 - Immunization history:: Adult Immunizations up to date. - Social history:: Smoking status: Patient/guardian denies using tobacco. - Ebola Screening: : Patient negative for fever greater than or equal to 101.5 degrees Fahrenheit, and additional compatible Ebola Virus Disease symptoms. Screenin:37 Abuse screen: Denies threats or abuse. Nutritional screening: No deficits noted. jd3 Tuberculosis screening: No symptoms or risk factors identified. Fall Risk Ambulatory Aid- None/Bed Rest/Nurse Assist (0 pts). Gait- Normal/Bed Rest/Wheelchair (0 pts) Mental Status- Oriented to own ability (0 pts). Total Prescott Fall Scale indicates No Risk (0-24 pts). Assessment: 19:35 General: Appears in no apparent distress. uncomfortable, Behavior is calm, cooperative, jd3 appropriate for age. Pain: Complains of pain in right leg and left leg Quality of pain is described as aching, sharp, tender. Neuro: Level of Consciousness is awake, alert, obeys commands, Oriented to person, place, time, situation. Cardiovascular: Denies chest pain, Capillary refill < 3 seconds Patient's skin is warm and dry. Respiratory: Airway is patent Respiratory effort is even, unlabored, Respiratory pattern is regular, symmetrical, Denies cough, shortness of breath. GI: No signs and/or symptoms were reported involving the gastrointestinal system. : No signs and/or symptoms were reported regarding the genitourinary system. EENT: No signs and/or symptoms were reported regarding the EENT system. Derm: Skin is intact, Skin is dry, Skin is normal, Skin temperature is warm Wound noted right leg and left leg. Musculoskeletal: Circulation, motion, and sensation intact. Range of motion: intact in all extremities, Swelling present in right leg and left leg. 20:52 Reassessment: Patient appears in no apparent distress at this time. No changes from jd3 previously documented assessment. Patient and/or family updated on plan of care and expected duration. Pain level reassessed. Patient is alert, oriented x 3, equal unlabored respirations, skin warm/dry/pink. 22:30 Reassessment: Patient appears in no apparent distress at this time. No changes from jd3 previously documented assessment. Patient and/or family updated on plan of care and expected duration. Pain level reassessed. Patient is alert, oriented x 3, equal unlabored respirations, skin warm/dry/pink. awaiting results and disposition. 23:30 Reassessment: Patient appears in no apparent distress at this time. No changes from jd3 previously documented assessment. Patient and/or family updated on plan of care and expected duration. Pain level reassessed. Patient is alert, oriented x 3, equal unlabored respirations, skin warm/dry/pink. 03/23 00:30 Reassessment: Patient appears in no apparent distress at this time. No changes from jd3 previously documented assessment. Patient and/or family updated on plan of care and expected duration. Pain level reassessed. Patient is alert, oriented x 3, equal unlabored respirations, skin warm/dry/pink. 01:06 Reassessment: Patient appears in no apparent distress at this time. No changes from jd3 previously documented assessment. Patient is alert, oriented x 3, equal unlabored respirations, skin warm/dry/pink. Patient is alert/active/playful, equal unlabored respirations, skin warm/dry/pink. 03:13 Reassessment: Patient appears in no apparent distress at this time. Patient and/or [facility] family updated on plan of care and expected duration. Pain level reassessed. Patient is alert, oriented x 3, equal unlabored respirations, skin warm/dry/pink. hospitalist at bedside. Vital Signs: 03/22 19:34 BP 156 / 82; Pulse 77; Resp 19 S; Temp 98.2(O); Pulse Ox 97% on R/A; Weight 181.44 kg [facility] (R); Height 5 ft. 10 in. (177.80 cm) (R); Pain 9/10; 20:53 BP 120 / 47; Pulse 81; Resp 20 S; Pulse Ox 100% on R/A; jd3 22:31 BP 153 / 72; Pulse 78; Resp 17 S; Pulse Ox 97% on R/A; jd3 23:30 BP 123 / 91; Pulse 78; Resp 17 S; Pulse Ox 97% on R/A; jd3 03/23 00:00 BP 135 / 65; Pulse 74; Resp 18 S; Pulse Ox 95% on R/A; jd3 01:06 BP 125 / 99; Pulse 71; Resp 18 S; Pulse Ox 97% on R/A; jd3 03:10 BP 149 / 70; Pulse 78; Resp 17 S; Pulse Ox 97% on R/A; jd3 03/22 19:34 Body Mass Index 57.39 (181.44 kg, 177.80 cm) jd3 ED Course: 03/22 19:15 Patient arrived in ED. as 19:30 Selvin Porras, RN is Primary Nurse. jd3 19:32 Triage completed. jd3 19:35 Arm band placed on. jd3 19:37 Patient has correct armband on for positive identification. Bed in low position. Call jd3 light in reach. Side rails up X2. 19:48 Sarah Singh FNP-C [facility]. snw 19:48 Joe Wang MD is Attending Physician. snw 20:21 Chest Single View XRAY In Process Unspecified. EDMS 22:16 Low Extremity Wo Cont In Process Unspecified. EDMS 03/23 01:57 Niyah Cooper MD is Hospitalizing Provider. snw 03:09 No provider procedures requiring assistance completed. Patient admitted, IV remains in jd3 place. Administered Medications: 03/22 20:39 Drug: NS 0.9% (30 ml/kg) 30 ml/kg {Note: Verbal order by Sarah Singh FISH HATCHERY INSPECTOR to administer 1L bolus only.} Route: IV; Rate: bolus; Site: right antecubital; 22:30 Follow up: Response: No adverse reaction; IV Status: Completed infusion; IV Intake: jd3 1000ml 20:44 Drug: Clindamycin 900 mg Route: IVPB; Infused Over: 30 mins; Site: right antecubital; 21:30 Follow up: Response: No adverse reaction; IV Status: Completed infusion jd3 Intake: 22:30 IV: 1000ml; Total: 1000ml. jd3 Outcome: 03/23 01:58 Decision to Hospitalize by Provider. snw 03:11 Admitted to Med/surg accompanied by tech, via stretcher, room 204, with chart, Report jd3 called to Bita TOURE 03:11 Condition: stable 03:11 Instructed on the need for admit, Demonstrated understanding of instructions. 03:52 Patient left the ED. ak1 Signatures: Dispatcher [employer] EDNC Sarah Singh FNP-C FNP-Celia Bianchi Amber RN RN ak1 Rebecca Short Selvin Porras RN RN jd3
--- NOTE | 2019-03-23 01:59 | EDPHYS ---
Physician Documentation [facility] Name: Juan J Lin Age: 58 yrs Sex: Male : 1960 Arrival Date: 03/22/2019 Time: 19:15 Bed 15 Private MD: ED Physician Joe Wang HPI: 03/22 22:23 This 58 yrs old Male presents to ER via Ambulatory with complaints of Leg snw Swelling. 22:23 The patient presents with pain, swelling, tenderness, odor. The complaints affect the snw right calf and right Achilles. Context: The problem was sustained outdoors, resulted from an unknown cause, the patient can partially bear weight, the patient is able to ambulate, Problem is a result from a previous injury: pt notes he had a large blister within his lymphedematous leg that developed when he had compressive stockings on and was working out doors, the blister ruptured and has been leaking fluid since. Pt states the drainage and the odor have become worse and worse. Dr. Duarte phoned him and directed him to ED. Onset: The symptoms/episode began/occurred gradually. Associated signs and symptoms: Pertinent positives: swelling, drainage, odor. Severity of symptoms: At their worst the symptoms were moderate, severe. The patient has experienced similar episodes in the past. as noted. Historical: - Allergies: 19:34 Vancomycin; jd3 19:34 Anesthesia- combative reaction; jd3 - Home Meds: 19:34 atorvastatin 40 mg Oral tab 1 tab once daily [Active]; carvedilol 3.125 mg Oral tab 1 jd3 tab 2 times per day [Active]; diclofenac sodium 75 mg Oral TbEC 2 times per day [Active]; furosemide 40 mg Oral tab 2 tabs once daily [Active]; glipizide 5 mg Oral tab [Active]; isosorbide mononitrate 30 mg Oral Tb24 1 tab once daily [Active]; lisinopril 5 mg Oral tab 1 tab once daily [Active]; metformin 500 mg Oral tr24 1 tab once daily [Active]; potassium chloride 20 mEq Oral cpER 1 tab once daily [Active]; spironolactone 25 mg Oral tab 1 tab once daily [Active]; Tramadol Oral [Active]; - PMHx: 19:34 Myocardial infarction; Hypertension; CHF; cardiomegaly; jd3 - PSHx: 19:34 Appendectomy; Cholecystectomy; jd3 - Immunization history:: Adult Immunizations up to date. - Social history:: Smoking status: Patient/guardian denies using tobacco. - Ebola Screening: : Patient negative for fever greater than or equal to 101.5 degrees Fahrenheit, and additional compatible Ebola Virus Disease symptoms. ROS: 22:27 Constitutional: Negative for fever, chills, and weight loss, Eyes: Negative for injury, snw pain, redness, and discharge, ENT: Negative for injury, pain, and discharge, Neck: Negative for injury, pain, and swelling, Cardiovascular: Negative for chest pain, palpitations, and edema, Respiratory: Negative for shortness of breath, cough, wheezing, and pleuritic chest pain, Abdomen/GI: Negative for abdominal pain, nausea, vomiting, diarrhea, and constipation, Back: Negative for injury and pain, : Negative for injury, bleeding, discharge, and swelling, Skin: Negative for injury, rash, and discoloration, Neuro: Negative for headache, weakness, numbness, tingling, and seizure. 22:27 MS/extremity: Positive for wound infection to right posterior, lower leg. Exam: 03/23 01:48 Constitutional: This is a well developed, well nourished patient who is awake, alert, snw and in no acute distress. Head/Face: Normocephalic, atraumatic. Eyes: Pupils equal round and reactive to light, extra-ocular motions intact. Lids and lashes normal. Conjunctiva and sclera are non-icteric and not injected. Cornea within normal limits. Periorbital areas with no swelling, redness, or edema. ENT: Nares patent. No nasal discharge, no septal abnormalities noted. Tympanic membranes are normal and external auditory canals are clear. Oropharynx with no redness, swelling, or masses, exudates, or evidence of obstruction, uvula midline. Mucous membranes moist. Neck: Trachea midline, no thyromegaly or masses palpated, and no cervical lymphadenopathy. Supple, full range of motion without nuchal rigidity, or vertebral point tenderness. No Meningismus. Chest/axilla: Normal chest wall appearance and motion. Nontender with no deformity. No lesions are appreciated. Cardiovascular: Regular rate and rhythm with a normal S1 and S2. No gallops, murmurs, or rubs. Normal PMI, no JVD. No pulse deficits. Respiratory: Lungs have equal breath sounds bilaterally, clear to auscultation and percussion. No rales, rhonchi or wheezes noted. No increased work of breathing, no retractions or nasal flaring. Abdomen/GI: Soft, non-tender, with normal bowel sounds. No distension or tympany. No guarding or rebound. No evidence of tenderness throughout. Back: No spinal tenderness. No costovertebral tenderness. Full range of motion. Neuro: Awake and alert, GCS 15, oriented to person, place, time, and situation. Cranial nerves II-XII grossly intact. Motor strength 5/5 in all extremities. Sensory grossly intact. Cerebellar exam normal. Normal gait. Psych: Awake, alert, with orientation to person, place and time. Behavior, mood, and affect are within normal limits. Skin: Appearance: normal except for affected area, cellulitis, that is moderate, on the bilateral lower extremities R>L, + lymphedema, weeping, malodorous. Vital Signs: 03/22 19:34 BP 156 / 82; Pulse 77; Resp 19 S; Temp 98.2(O); Pulse Ox 97% on R/A; Weight 181.44 kg j (R); Height 5 ft. 10 in. (177.80 cm) (R); Pain 9/10; 20:53 BP 120 / 47; Pulse 81; Resp 20 S; Pulse Ox 100% on R/A; jd3 22:31 BP 153 / 72; Pulse 78; Resp 17 S; Pulse Ox 97% on R/A; jd3 23:30 BP 123 / 91; Pulse 78; Resp 17 S; Pulse Ox 97% on R/A; jd3 03/23 00:00 BP 135 / 65; Pulse 74; Resp 18 S; Pulse Ox 95% on R/A; jd3 01:06 BP 125 / 99; Pulse 71; Resp 18 S; Pulse Ox 97% on R/A; jd3 03:10 BP 149 / 70; Pulse 78; Resp 17 S; Pulse Ox 97% on R/A; jd3 03/22 19:34 Body Mass Index 57.39 (181.44 kg, 177.80 cm) [facility] MDM: 03/22 19:48 Patient medically screened. snw 03/23 01:51 Data reviewed: vital signs, nurses notes, lab test result(s), radiologic studies, CT snw scan. Data interpreted: Pulse oximetry: on room air is 97 %. Interpretation: normal. Counseling: I had a detailed discussion with the patient and/or guardian regarding: the historical points, exam findings, and any diagnostic results supporting the discharge/admit diagnosis, lab results, radiology results. Physician consultation: Niyah Cooper MD was called at 01:53, was contacted at 02:00, regarding admission, to the telemetry unit. and will see patient in ED, shortly. 01:53 ED course: discussed pt trial of Clindamycin po and f/u , Pt states Dr. Duarte snw sent pt to ED for admission. Discussed need for wound care. Pt has home health that dresses legs every other day. sees pt every other . Pt states he was on Keflex three weeks and feels the antibiotics did not improve cellulitis. Dr. Wang consulted. Recommends pt be admitted for failed outpt therapy for Clindamycin and Ancef. 03/22 19:58 Order name: T\T\S w 03/22 19:58 Order name: C-Reactive Protein [facility] 03/22 19:58 Order name: Basic Metabolic Panel [facility] 03/22 19:58 Order name: Blood Culture Adult (2) w 03/22 19:58 Order name: CBC with Diff [facility] 03/22 19:58 Order name: Ckmb; Complete Time: 21:13 w 03/22 19:58 Order name: CPK; Complete Time: 21:13 w 03/22 19:58 Order name: Lactate; Complete Time: 21:11 snw 03/22 19:58 Order name: LFT's; Complete Time: 21:13 w 03/22 19:58 Order name: Lipase; Complete Time: 21:13 w 03/22 19:58 Order name: Procalcitonin; Complete Time: 21:22 w 03/22 19:58 Order name: Protime (+inr); Complete Time: 21:01 w 03/22 19:58 Order name: Ptt, Activated; Complete Time: 21:01 w 03/22 19:58 Order name: Troponin (emerg Dept Use Only); Complete Time: 21:13 snw 03/22 19:58 Order name: Urine Microscopic Only; Complete Time: 22:51 snw 03/22 19:58 Order name: Chest Single View XRAY; Complete Time: 20:40 snw 03/22 19:58 Order name: Accucheck; Complete Time: 20:28 snw 03/22 19:58 Order name: Cardiac monitoring; Complete Time: 20:28 snw 03/22 19:58 Order name: EKG - Nurse/Tech; Complete Time: 20:28 snw 03/22 19:59 Order name: Type and Screen; Complete Time: 21:40 EDMS 03/22 19:59 Order name: C-Reactive Protein; Complete Time: 21:13 EDMS 03/22 19:59 Order name: Basic Metabolic Panel; Complete Time: 21:13 EDMS 03/22 19:59 Order name: Blood Culture EDMS 03/22 19:59 Order name: CBC with Automated Diff; Complete Time: 21:01 EDMS 03/22 20:46 Order name: Low Extremity Wo Cont EDMS 03/22 20:49 Order name: Glucose, Ancillary Testing; Complete Time: 21:01 EDMS 03/22 22:20 Order name: Urine Dipstick--Ancillary (enter results); Complete Time: 22:28 ar5 03/22 22:47 Order name: Urine Culture EDMS 03/22 19:58 Order name: IV Saline Lock - Large Bore; Complete Time: 20:27 snw 03/22 19:58 Order name: Labs collected and sent; Complete Time: 20:27 snw 03/22 19:58 Order name: O2 Per Protocol; Complete Time: 20:07 snw 03/22 19:58 Order name: O2 Sat Monitoring; Complete Time: 20:07 snw 03/22 19:58 Order name: Urine Dipstick-Ancillary (obtain specimen); Complete Time: 22:19 snw 03/23 00:46 Order name: Misc. Order: remove dressing from right leg please; Complete Time: 01:33 snw Administered Medications: 03/22 20:39 Drug: NS 0.9% (30 ml/kg) 30 ml/kg {Note: Verbal order by Sarah Singh NP to wh administer 1L bolus only.} Route: IV; Rate: bolus; Site: right antecubital; 22:30 Follow up: Response: No adverse reaction; IV Status: Completed infusion; IV Intake: jd3 1000ml 20:44 Drug: Clindamycin 900 mg Route: IVPB; Infused Over: 30 mins; Site: right antecubital; 21:30 Follow up: Response: No adverse reaction; IV Status: Completed infusion jd3 Disposition: 03/23 07:38 Co-signature as Attending Physician, Joe Wang MD I agree with the assessment and ivy plan of care. Disposition: 03/23/19 01:58 Hospitalization ordered by Niyah Cooper for Inpatient Admission. Preliminary diagnosis are Cellulitis of right lower limb, Lymphedema, not elsewhere classified, Failed outpt therapy. - Bed requested for Telemetry/MedSurg (Inpatient). - Status is Inpatient Admission. ak1 - Condition is Stable. - Problem is an acute exacerbation. - Symptoms have worsened. UTI on Admission? Yes Signatures: Dispatcher [employer] EDAK Joe Wang MD MD cha Therrien, Shelly, MONONITROTOLUENE OPERATOR-C MONONITROTOLUENE OPERATOR-Csnw Ana Barr, RN RN tl1 Humera Rivera RN RN ak1 Rebecca Short Jonathon RN RN jd3 Corrections: (The following items were deleted from the chart) 02:27 01:51 Physician consultation: Niyah Cooper MD was called at 01:53, odin snw 02:34 01:58 Hospitalization Ordered by Niyah Cooper MD for Inpatient Admission. Preliminary tl1 diagnosis is Cellulitis of right lower limb; Lymphedema, not elsewhere classified; Failed outpt therapy. Bed requested for Telemetry/MedSurg (Inpatient). Status is Inpatient Admission. Condition is Stable. Problem is an acute exacerbation. Symptoms have worsened. UTI on Admission? Yes. snw 03:52 02:34 03/23/2019 01:58 Hospitalization Ordered by Niyah Cooper MD for Inpatient ak1 Admission. Preliminary diagnosis is Cellulitis of right lower limb; Lymphedema, not elsewhere classified; Failed outpt therapy. Bed requested for Telemetry/MedSurg (Inpatient). Status is Inpatient Admission. Condition is Stable. Problem is an acute exacerbation. Symptoms have worsened. UTI on Admission? Yes. tl1
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
[2019-03-23 03:57] VITALS: BMI 59.2
[2019-03-23] MEDS ORDERED: ACETAMINOPHEN 500 MG TAB PO PRN (04:09)
[2019-03-23] MEDS ORDERED: ONDANSETRON 4 MG/2 ML VIAL IV PRN (04:09)
[2019-03-23] MEDS ORDERED: MORPHINE 2 MG/ML SYR IV PRN (04:09)
[2019-03-23] MEDS ORDERED: GLUCAGON 1 MG/VIAL IM PRN (04:36)
[2019-03-23] MEDS ORDERED: D50W 25 GM/50 ML SYRINGE/VIAL IV PRN (04:36)
[2019-03-23] MEDS: HYDROCODONE/APAP 5/325 MG TAB PO PRN ×2 (04:47→21:37)
[2019-03-23] MEDS ORDERED: CEFAZOLIN/NS 1gm 1 GM/50 ML BAG IVPB SCH ×2 (05:00→09:00)
[2019-03-23] MEDS ORDERED: CLINDAMYCIN 600MG/D5W 600 MG/50 ML BAG IV ONE (05:09)
[2019-03-23] MEDS ORDERED: CEFAZOLIN/SWI 1gm 1 GM/10 ML SYR ONE (05:09)
[2019-03-23] MEDS: CLINDAMYCIN INJ 600 MG in NA CHLORIDE 0.9% 50 ML IV SCH ×3 (05:20→17:28)
[2019-03-23 05:40] LABS: Urine Appearance CLOUDY; Urine Blood NEGATIVE (NEG); Urine Color DK YELLOW; Urine Glucose TRACE (NEG); Urine Protein NEGATIVE (NEG); Urine Specific Gravity 1.025 (1.005-1.030)
[2019-03-23 05:56] LABS: Magnesium 1.8 mg/dL (1.8-2.4); Thyroid Stimulating Hormone 3.2 uIU/mL (0.360-3.740)
[2019-03-23 05:57] LABS: Urine Bilirubin NEGATIVE (NEG); Urine Microscopic Reflex ORDER UMIC
[2019-03-23 06:06] LABS: Urine Bacteria <20 /HPF (NONE SEEN); Urine Mucus HEAVY /HPF (NONE SEEN); Urine RBC NONE SEEN /HPF (NONE SEEN)
[2019-03-23 06:07] LABS: Urine Culture Reflex Order NOT NEEDED
[2019-03-23] MEDS: INSULIN -REGULAR HUMAN 50 UNIT/0.5 ML ML SQ SCH ×4 (07:30→21:37)
--- NOTE | 2019-03-23 08:57 | EKG ---
Test Date: 2019-03-22 Test Time: 20:42:16 Torch Operator: JEFFREY MEASUREMENT RESULTS: Intervals: Rate: 79 OK: 160 QRSD: 88 QT: 406 QTc: 465 Orma: P: 58 OK: 160 QRS: 25 T: 57 INTERPRETIVE STATEMENTS: Sinus rhythm with premature atrial complexes Otherwise normal ECG Compared to ECG 06/20/2018 20:24:46 Atrial premature complex(es) now present Electronically Signed On 03-23-19 08:56:32 PATHOLOGY SPECIALIST by Gregorio Leong
[2019-03-23] MEDS: CEFAZOLIN/SWI 1gm 1 GM/10 ML SYR IV SCH ×2 (09:00→17:28)
--- NOTE | 2019-03-23 12:41 | RAD REPORT ---
EXAM DESCRIPTION: CT Bilateral Lower Extremities Without Intravenous Contrast CLINICAL HISTORY: The patient is 58 years old and is Male; leg swelling Low Extremity Wo Cont TECHNIQUE: Axial computed tomography images of the bilateral lower extremities without intravenous c ontrast. Sagittal and coronal reformatted images were created and reviewed. This CT exam was perf ormed using one or more of the following dose reduction techniques: automated exposure control, adj ustment of the mA and/or kV according to patient size, and/or use of iterative reconstruction techniq ue. COMPARISON: No relevant prior studies available. FINDINGS: LIMITATIONS: Suboptimal study secondary to artifact related to patient body habitus. BONES/JOINTS: No acute fracture. The joints are intact. There is no dislocation. The bone minera lization and contour is normal. SOFT TISSUES: Mild diffuse edema throughout the lower leg is present with extensive diffuse skin thickening which is more prominent on the right than the left. There is no drainable fluid collectio n. There is no subcutaneous air. IMPRESSION: Mild diffuse edema within the subcutaneous tissues with extensive skin thickening of bot h legs, right greater than left. There is no drainable fluid collection. No subcutaneous air or findi ngs to suggest gangrene. Electronically signed by: Helena Dodd MD 03/22/2019 11:28 PM MARINE STEAMFITTER Due to temporary technical issues with the PACS/Fluency reporting system, reports are being signed by the in house radiologist as a courtesy to ensure prompt reporting. The interpreting radiologist is f ully responsible for the content of the report.
[2019-03-23] MEDS ORDERED: HYDRALAZINE HCL 20 MG/ML VIAL IV PRN (13:00)
[2019-03-23] MEDS: FUROSEMIDE 40 MG/4 ML VIAL IV SCH ×2 (13:00→17:27)
--- NOTE | 2019-03-23 13:03 | P.PN ---
Subjective Date of Service: 03/23/19 Chief Complaint: LE cellulitis Subjective: No new changes (-seen - pt with hx of HTN , copd, Diastolic CHF, pulmonary HTN not adherent with cpap prescribed for home use , chronic LE edema admitted for cellulitis - feels fine now , admit to low fluid intake - still throbbing pain in both LE - states wound care eval today and plan for transfer to [facility]) Review of Systems 10-point ROS is otherwise unremarkable Physical Examination - Vital Signs Temperature: 97.1 F Blood Pressure: 149/69 Pulse: 84 Respirations: 18 Pulse Ox (%): 95 - Physical Exam General: Alert, In no apparent distress, Oriented x3 HEENT: Atraumatic, Normocephalic, PERRLA, Mucous membr. moist/pink Neck: Supple, 2+ carotid pulse no bruit, JVD not distended Respiratory: Diminished, Crackles/rales Cardiovascular: Regular rate/rhythm, Normal S1 S2, Edema (3+ with lymphedema and erythema , MARTHA dsg over LE insitu ) Gastrointestinal: Normal bowel sounds, Hypoactive Neurological: Normal gait, Normal speech, Normal strength at 5/5 x4 extr Other Physical/Emotional Findings: RLE with immense swelling, fetid smell, copious draining noted on the bedding, diffuse blistering and crack/broken skin. tenderness to palpation. LLE w/ drainage w/ clear fluid - Studies Laboratory Data (last 24 hrs) 03/22/19 20:20: PT 13.2 H, INR 1.12, APTT 27.7 03/22/19 20:20: WBC 8.7, Hgb 14.5, Hct 43.6, Plt Count 270 03/22/19 20:20: Sodium 138, Potassium 3.9, BUN 7, Creatinine 0.93, Glucose 204 H , Total Bilirubin 0.5, AST 20, ALT 20, Alkaline Phosphatase 146 H, Lipase 166 Medications List Reviewed: Yes Assessment And Plan Discharge Plan: LTAC Plan to discharge in: 48 Hours - Code Status/Comfort Care Code Status Assessed: Yes Code Status: Full Code Physician Review Additional Text: # LE cellulitis - dyue to chronic lymphedema -follow wound care plans , awaiting offficial consult note - c/w abx , may need dapto since allergic to vanco - follow blood cx -c/w MARTHA dsg and LE elevation # LE edema - may be due to pulmonary HTN since not using cpap at home now - will do trial of lasix diuresis - will restart noctrurnal CPAP trial while inpatient -will obtain Echo # HTN - c/w meds, follow with diuresis # DVT prop - sc lovenox Time Spent Managing PTS Care (In Minutes): 35
--- NOTE | 2019-03-23 15:46 | ECHO ---
HEIGHT: 5 ft 10 in WEIGHT: 413 lb 0 oz DATE OF STUDY: 03/23/[address]: Von Obrien MD 2-DIMENSIONAL: YES M.MODE: YES DOPPLER: YES COLOR FLOW: YES TDS: YES PORTABLE: DEFINITY: BUBBLE STUDY: DIAGNOSIS: PULMONARY HYPERTENSION CARDIAC HISTORY: CATHERIZATION: NO SURGERY: NO PROSTHETIC VALVE: NO PACEMAKER: NO MEASUREMENTS (cm) DIASTOLIC (NORMALS) SYSTOLIC (NORMALS) IVSd 1.1 (0.6-1.2) LA Diam 3.6 (1.9-4.0) LVEF 61% LVIDd 4.8 (3.5-5.7) LVIDs 3.2 (2.0-3.5) %FS 32% LVPWd 1.1 (0.6-1.2) Ao Diam 2.6 (2.0-3.7) 2 DIMENSIONAL ASSESSMENT: RIGHT ATRIUM: NORMAL LEFT ATRIUM: NORMAL RIGHT VENTRICLE: NORMAL LEFT VENTRICLE: NORMAL TRICUSPID VALVE: NORMAL MITRAL VALVE: NORMAL PULMONIC VALVE: NORMAL AORTIC VALVE: NORMAL PERICARDIAL EFFUSION: NONE AORTIC ROOT: NORMAL LEFT VENTRICULAR WALL MOTION: NORMAL DOPPLER/COLOR FLOW: NORMAL COMMENTS: NORMAL 2-DIMENSIONAL ECHOCARDIOGRAM WITH DOPPLER. TECHNOLOGIST: GIBRAN JUAREZ
[2019-03-23] MEDS: SPIRONOLACTONE 25 MG TABLET PO SCH (21:38)
[2019-03-24] MEDS: CLINDAMYCIN INJ 600 MG in NA CHLORIDE 0.9% 50 ML IV SCH ×3 (00:46→16:24)
[2019-03-24] MEDS: CEFAZOLIN/SWI 1gm 1 GM/10 ML SYR IV SCH ×3 (00:46→16:24)
[2019-03-24 06:08] LABS: Absolute Lymphocytes (CBC) 1.5 K/uL (0.7-4.9); Basophils % 0.9 % (0-1.3); Hematocrit 39.4 % (39.6-49.0); Lymphocytes % 21.5 % (15.3-44.8); RBC Red Blood Cell Count 4.45 M/uL (4.33-5.43)
[2019-03-24 06:24] LABS: ALT/SGPT 17 U/L (12-78); AST/SGOT 13 U/L (15-37); Albumin 2.6 g/dL (3.4-5.0); Alkaline Phosphatase 127 U/L (45-117); BUN Blood Urea Nitrogen 8 mg/dL (7-18); Bicarbonate 33 mmol/L (21-32); Bilirubin Total 0.9 mg/dL (0.2-1.0); Glucose Level 136 mg/dL (74-106); Potassium 3.6 mmol/L (3.5-5.1); Protein, Total 7.2 g/dL (6.4-8.2); Sodium Level 142 mmol/L (136-145)
[2019-03-24] MEDS: INSULIN -REGULAR HUMAN 50 UNIT/0.5 ML ML SQ SCH ×4 (07:30→21:20)
[2019-03-24] MEDS: FORMOTEROL FUMARATE 20 MCG/2 ML VIAL.NEB IH SCH (08:00)
--- NOTE | 2019-03-24 09:24 | P.PN ---
Subjective Date of Service: 03/24/19 Chief Complaint: LE cellulitis Subjective: No new changes (feel fine , refuse cpap last pm - states his voiding well now) Review of Systems 10-point ROS is otherwise unremarkable Physical Examination - Vital Signs Temperature: 97.4 F Blood Pressure: 138/62 Pulse: 67 Respirations: 18 Pulse Ox (%): 95 - Physical Exam General: Alert, In no apparent distress, Obese HEENT: Atraumatic, Normocephalic, PERRLA Neck: Supple, 2+ carotid pulse no bruit, JVD not distended Respiratory: Normal air movement, Crackles/rales Cardiovascular: Normal pulses, Regular rate/rhythm, Normal S1 S2, Edema Gastrointestinal: Normal bowel sounds, No tenderness Musculoskeletal: Swelling (b/l LE) Neurological: Normal gait, Normal speech Other Physical/Emotional Findings: 03/24 still b/l LE swelling , MARTHA wrap insitu , less intense edema. 03/22-RLE with immense swelling, fetid smell, copious draining noted on the bedding, diffuse blistering and crack/broken skin. tenderness to palpation. LLE w/ drainage w/ clear fluid - Studies Laboratory Last Values WBC 7.1 K/uL (4.3-10.9) D 03/24/19 05:38 RBC 4.45 M/uL (4.33-5.43) 03/24/19 05:38 Hgb 13.3 g/dL (13.6-17.9) L 03/24/19 05:38 Hct 39.4 % (39.6-49.0) L 03/24/19 05:38 MCV 88.7 fL (80-100) 03/24/19 05:38 MCH 29.9 pg (27.0-35.0) 03/24/19 05:38 MCHC 33.8 g/dL (32.0-36.0) 03/24/19 05:38 RDW 14.7 % (12.1-15.2) 03/24/19 05:38 Plt Count 269 K/uL (152-406) 03/24/19 05:38 MPV 9.0 fL (7.6-11.3) 03/24/19 05:38 Neutrophils % 60.7 % (41.7-73.7) 03/24/19 05:38 Lymphocytes % 21.5 % (15.3-44.8) 03/24/19 05:38 Monocytes % 8.7 % (3.3-12.3) 03/24/19 05:38 Eosinophils % 8.2 % (0-4.4) H 03/24/19 05:38 Basophils % 0.9 % (0-1.3) 03/24/19 05:38 Absolute Neutrophils 4.3 K/uL (1.8-8.0) 03/24/19 05:38 Absolute Lymphocytes 1.5 K/uL (0.7-4.9) 03/24/19 05:38 Absolute Monocytes 0.6 K/uL (0.1-1.3) 03/24/19 05:38 Absolute Eosinophils 0.6 K/uL (0-0.5) H 03/24/19 05:38 Absolute Basophils 0.1 K/uL (0-0.5) 03/24/19 05:38 ESR Westergren 28 mm/HR (0-20) H 03/23/19 05:17 PT 13.2 SECONDS (9.5-12.5) H 03/22/19 20:20 INR 1.12 03/22/19 20:20 APTT 27.7 SECONDS (24.3-36.9) 03/22/19 20:20 Sodium 142 mmol/L (136-145) 03/24/19 05:38 Potassium 3.6 mmol/L (3.5-5.1) 03/24/19 05:38 Chloride 105 mmol/L (98-107) 03/24/19 05:38 Carbon Dioxide 33 mmol/L (21-32) H 03/24/19 05:38 BUN 8 mg/dL (7-18) 03/24/19 05:38 Creatinine 0.81 mg/dL (0.55-1.3) 03/24/19 05:38 Estimated GFR > 90 mL/min (=/>90) 03/24/19 05:38 Glucose 136 mg/dL (74-106) H 03/24/19 05:38 POC Glucose 141 mg/dl (65-120) H 03/24/19 07:59 Hemoglobin A1c 7.2 % (4.2-6.3) H 03/23/19 05:17 Lactic Acid 1.5 mmol/L (0.4-2.0) 03/22/19 20:20 Calcium 8.2 mg/dL (8.5-10.1) L 03/24/19 05:38 Magnesium 1.8 mg/dL (1.8-2.4) 03/23/19 05:17 Total Bilirubin 0.9 mg/dL (0.2-1.0) 03/24/19 05:38 Direct Bilirubin 0.1 mg/dL (0-0.2) 03/22/19 20:20 AST 13 U/L (15-37) L 03/24/19 05:38 ALT 17 U/L (12-78) 03/24/19 05:38 Alkaline Phosphatase 127 U/L (45-117) H 03/24/19 05:38 Creatine Kinase 55 U/L (39-308) 03/22/19 20:20 CK-MB (CK-2) < 1.0 ng/mL (0.3-3.6) 03/22/19 20:20 Rapid Troponin I < 0.02 ng/mL (0.0-0.045) 03/22/19 20:20 C-Reactive Protein 30.50 mg/L (<3.00) H 03/22/19 20:20 Serum Total Protein 7.2 g/dL (6.4-8.2) 03/24/19 05:38 Albumin 2.6 g/dL (3.4-5.0) L 03/24/19 05:38 Globulin 4.6 g/dL (2.3-3.5) H 03/24/19 05:38 Albumin/Globulin Ratio 0.6 (1.1-1.8) L 03/24/19 05:38 Lipase 166 U/L (73-393) 03/22/19 20:20 Procalcitonin < 0.05 ng/mL (<0.50) 03/22/19 20:20 TSH 3.200 uIU/mL (0.360-3.740) 03/23/19 05:17 Urine Color Dk yellow 03/23/19 05:05 Urine Appearance Cloudy 03/23/19 05:05 Urine pH 6.0 (5.0-7.0) 03/23/19 05:05 Ur Specific [place] 1.025 (1.005-1.030) 03/23/19 05:05 Urine Ketones Negative (NEG) 03/23/19 05:05 Urine Blood Negative (NEG) 03/23/19 05:05 Urine Nitrite Negative (NEG) 03/23/19 05:05 Urine Bilirubin Negative (NEG) 03/23/19 05:05 Urine Urobilinogen 1.0 mg/dL (0.2-1.0) 03/23/19 05:05 Ur Leukocyte Esterase 2+ (NEG) H 03/23/19 05:05 Urine RBC None seen /HPF (NONE SEEN) 03/23/19 05:05 Urine WBC >50 /HPF (<5) H 03/23/19 05:05 Ur Squamous Epith Cells <5 /HPF (NONE SEEN) 03/23/19 05:05 Urine Bacteria <20 /HPF (NONE SEEN) 03/23/19 05:05 Urine Mucus Heavy /HPF (NONE SEEN) 03/23/19 05:05 Urine Culture Reflexed Not needed 03/23/19 05:05 Urine Glucose Trace (NEG) 03/23/19 05:05 Urine Total Protein Negative (NEG) 03/23/19 05:05 ABO/Rh O POSITIVE 03/23/19 05:17 Antibody Screen Negative 03/22/19 20:10 Medications List Reviewed: Yes Assessment & Plan - Problems (Diagnosis) (1) Cellulitis Onset Date: 10/24/17 Current Visit: No Status: Acute Qualifiers: Site of cellulitis: extremity Laterality: right (2) CHF with left ventricular diastolic dysfunction, NYHA class 1 Onset Date: 01/12/17 Current Visit: No Status: Chronic (3) Chronic acquired lymphedema Onset Date: 01/12/17 Current Visit: No Status: Chronic (4) Diabetic neuropathy Current Visit: No Status: Chronic Qualifiers: Diabetes mellitus type: type 2 Diabetes mellitus complication detail: diabetic polyneuropathy Qualified Code(s): E11.42 - Type 2 diabetes mellitus with diabetic polyneuropathy (5) Obesity Current Visit: No Status: Chronic Qualifiers: Obesity type: unspecified obesity type Obesity classification: adult class 3 (BMI >= 40) Serious obesity comorbidity presence: with serious comorbidity Body mass index: BMI 60.0-69.9 Qualified Code(s): E66.9 - Obesity, unspecified; Z68.44 - Body mass index (BMI) 60.0-69.9, adult (6) Stasis dermatitis of both legs Onset Date: 01/12/17 Current Visit: No Status: Chronic Physician Review: Patient Assessed, Agree with Above Assessment and Plan Physician Review Additional Text: # Bilateral LE cellulitis - improving edema size - c/w abx - follow plan per wound care , no note in chart - plan for transfer to [place] on tuesday as per pt -c/w lasix 03/23-due to chronic lymphedema -follow wound care plans , awaiting offficial consult note - c/w abx , may need dapto since allergic to vanco - follow blood cx -c/w MARTHA dsg and LE elevation # LE edema - Echo shows normal EF of 65% but no mention of pul HTN which was reason for echo -still possible pulmonary HTN -counselling on noctrurnal CPAP trial while inpatient discussed , will need sleep study as outpt # HTN -controlled , c/w med # DM -diet controlled, c/w Insulin sliding scale and accuchecks # DVT prop - sc lovenox Critical Care: No
[2019-03-24] MEDS: SPIRONOLACTONE 25 MG TABLET PO SCH ×2 (09:52→21:22)
[2019-03-24] MEDS: FAMOTIDINE 20 MG TAB PO SCH (09:52)
[2019-03-24] MEDS: FUROSEMIDE 40 MG/4 ML VIAL IV SCH ×2 (09:52→16:23)
[2019-03-24] MEDS: ISOSORBIDE MONO SR 30 MG TAB PO SCH (09:52)
[2019-03-24] MEDS: lisinopriL 20 MG TAB PO SCH (09:54)
[2019-03-24] MEDS: POTASSIUM CL SA 10 MEQ TAB PO SCH (10:50)
[2019-03-24] MEDS: IPRATROPIUM BROM 0.5MG/2.5ML NEB PRN (20:16)
[2019-03-24] MEDS: HYDROCODONE/APAP 5/325 MG TAB PO PRN (21:21)
[2019-03-25] MEDS: CEFAZOLIN/SWI 1gm 1 GM/10 ML SYR IV SCH ×3 (00:12→17:08)
[2019-03-25] MEDS: CLINDAMYCIN INJ 600 MG in NA CHLORIDE 0.9% 50 ML IV SCH ×3 (00:12→17:08)
[2019-03-25 04:59] LABS: Absolute Lymphocytes (CBC) 1.6 K/uL (0.7-4.9); Basophils % 0.8 % (0-1.3); Hematocrit 37.9 % (39.6-49.0); Lymphocytes % 23.9 % (15.3-44.8); MPV 9.4 fL (7.6-11.3); RBC Red Blood Cell Count 4.29 M/uL (4.33-5.43)
[2019-03-25 05:11] LABS: ALT/SGPT 16 U/L (12-78); AST/SGOT 15 U/L (15-37); Albumin 2.5 g/dL (3.4-5.0); Alkaline Phosphatase 118 U/L (45-117); BUN Blood Urea Nitrogen 10 mg/dL (7-18); Bicarbonate 32 mmol/L (21-32); Bilirubin Total 0.6 mg/dL (0.2-1.0); Glucose Level 131 mg/dL (74-106); Potassium 3.4 mmol/L (3.5-5.1); Protein, Total 6.8 g/dL (6.4-8.2); Sodium Level 141 mmol/L (136-145)
[2019-03-25] MEDS: INSULIN -REGULAR HUMAN 50 UNIT/0.5 ML ML SQ SCH ×4 (07:30→20:27)
[2019-03-25] MEDS: FORMOTEROL FUMARATE 20 MCG/2 ML VIAL.NEB IH SCH (08:00)
[2019-03-25] MEDS: FAMOTIDINE 20 MG TAB PO SCH (09:20)
[2019-03-25] MEDS: lisinopriL 20 MG TAB PO SCH (09:21)
[2019-03-25] MEDS: ISOSORBIDE MONO SR 30 MG TAB PO SCH (09:21)
[2019-03-25] MEDS: SPIRONOLACTONE 25 MG TABLET PO SCH ×2 (09:22→20:29)
[2019-03-25] MEDS: POTASSIUM CL SA 10 MEQ TAB PO SCH ×2 (09:22→20:28)
[2019-03-25] MEDS: FUROSEMIDE 40 MG/4 ML VIAL IV SCH ×2 (09:22→17:08)
--- NOTE | 2019-03-25 10:38 | P.PN ---
Subjective Date of Service: 03/25/19 Chief Complaint: LE cellulitis Subjective: No new changes, No C/O voiced unable tolerate hospital CPAP last pm Review of Systems 10-point ROS is otherwise unremarkable Physical Examination - Vital Signs Temperature: 98.0 F Blood Pressure: 134/68 Pulse: 67 Respirations: 21 Pulse Ox (%): 97 - Physical Exam General: Alert, In no apparent distress, Obese HEENT: Atraumatic, Normocephalic Neck: Supple, 2+ carotid pulse no bruit Respiratory: Clear to auscultation bilaterally, Normal air movement Cardiovascular: Normal pulses, Regular rate/rhythm, Edema Gastrointestinal: Normal bowel sounds, Soft and benign Integumentary: Tenderness/swelling, Venous stasis ulcer (b/l LE - size decreasing ) Neurological: Normal speech, Normal strength at 5/5 x4 extr Other Physical/Emotional Findings: 03/24 still b/l LE swelling , MARTHA wrap insitu , less intense edema. 03/22-RLE with immense swelling, fetid smell, copious draining noted on the bedding, diffuse blistering and crack/broken skin. tenderness to palpation. LLE w/ drainage w/ clear fluid - Studies Laboratory Last Values WBC 6.8 K/uL (4.3-10.9) 03/25/19 04:09 RBC 4.29 M/uL (4.33-5.43) L 03/25/19 04:09 Hgb 13.1 g/dL (13.6-17.9) L 03/25/19 04:09 Hct 37.9 % (39.6-49.0) L 03/25/19 04:09 MCV 88.3 fL (80-100) 03/25/19 04:09 MCH 30.5 pg (27.0-35.0) 03/25/19 04:09 MCHC 34.5 g/dL (32.0-36.0) 03/25/19 04:09 RDW 14.8 % (12.1-15.2) 03/25/19 04:09 Plt Count 277 K/uL (152-406) 03/25/19 04:09 MPV 9.4 fL (7.6-11.3) 03/25/19 04:09 Neutrophils % 59.2 % (41.7-73.7) 03/25/19 04:09 Lymphocytes % 23.9 % (15.3-44.8) 03/25/19 04:09 Monocytes % 9.0 % (3.3-12.3) 03/25/19 04:09 Eosinophils % 7.1 % (0-4.4) H 03/25/19 04:09 Basophils % 0.8 % (0-1.3) 03/25/19 04:09 Absolute Neutrophils 4.0 K/uL (1.8-8.0) 03/25/19 04:09 Absolute Lymphocytes 1.6 K/uL (0.7-4.9) 03/25/19 04:09 Absolute Monocytes 0.6 K/uL (0.1-1.3) 03/25/19 04:09 Absolute Eosinophils 0.5 K/uL (0-0.5) 03/25/19 04:09 Absolute Basophils 0.1 K/uL (0-0.5) 03/25/19 04:09 ESR Westergren 28 mm/HR (0-20) H 03/23/19 05:17 PT 13.2 SECONDS (9.5-12.5) H 03/22/19 20:20 INR 1.12 03/22/19 20:20 APTT 27.7 SECONDS (24.3-36.9) 03/22/19 20:20 Sodium 141 mmol/L (136-145) 03/25/19 04:09 Potassium 3.4 mmol/L (3.5-5.1) L 03/25/19 04:09 Chloride 106 mmol/L (98-107) 03/25/19 04:09 Carbon Dioxide 32 mmol/L (21-32) 03/25/19 04:09 BUN 10 mg/dL (7-18) 03/25/19 04:09 Creatinine 0.74 mg/dL (0.55-1.3) 03/25/19 04:09 Estimated GFR > 90 mL/min (=/>90) 03/25/19 04:09 Glucose 131 mg/dL (74-106) H 03/25/19 04:09 POC Glucose 134 mg/dl (65-120) H 03/25/19 07:38 Hemoglobin A1c 7.2 % (4.2-6.3) H 03/23/19 05:17 Lactic Acid 1.5 mmol/L (0.4-2.0) 03/22/19 20:20 Calcium 8.3 mg/dL (8.5-10.1) L 03/25/19 04:09 Magnesium 1.8 mg/dL (1.8-2.4) 03/23/19 05:17 Total Bilirubin 0.6 mg/dL (0.2-1.0) 03/25/19 04:09 Direct Bilirubin 0.1 mg/dL (0-0.2) 03/22/19 20:20 AST 15 U/L (15-37) 03/25/19 04:09 ALT 16 U/L (12-78) 03/25/19 04:09 Alkaline Phosphatase 118 U/L (45-117) H 03/25/19 04:09 Creatine Kinase 55 U/L (39-308) 03/22/19 20:20 CK-MB (CK-2) < 1.0 ng/mL (0.3-3.6) 03/22/19 20:20 Rapid Troponin I < 0.02 ng/mL (0.0-0.045) 03/22/19 20:20 C-Reactive Protein 30.50 mg/L (<3.00) H 03/22/19 20:20 Serum Total Protein 6.8 g/dL (6.4-8.2) 03/25/19 04:09 Albumin 2.5 g/dL (3.4-5.0) L 03/25/19 04:09 Globulin 4.3 g/dL (2.3-3.5) H 03/25/19 04:09 Albumin/Globulin Ratio 0.6 (1.1-1.8) L 03/25/19 04:09 Lipase 166 U/L (73-393) 03/22/19 20:20 Procalcitonin < 0.05 ng/mL (<0.50) 03/22/19 20:20 TSH 3.200 uIU/mL (0.360-3.740) 03/23/19 05:17 Urine Color Dk yellow 03/23/19 05:05 Urine Appearance Cloudy 03/23/19 05:05 Urine pH 6.0 (5.0-7.0) 03/23/19 05:05 Ur Specific [place] 1.025 (1.005-1.030) 03/23/19 05:05 Urine Ketones Negative (NEG) 03/23/19 05:05 Urine Blood Negative (NEG) 03/23/19 05:05 Urine Nitrite Negative (NEG) 03/23/19 05:05 Urine Bilirubin Negative (NEG) 03/23/19 05:05 Urine Urobilinogen 1.0 mg/dL (0.2-1.0) 03/23/19 05:05 Ur Leukocyte Esterase 2+ (NEG) H 03/23/19 05:05 Urine RBC None seen /HPF (NONE SEEN) 03/23/19 05:05 Urine WBC >50 /HPF (<5) H 03/23/19 05:05 Ur Squamous Epith Cells <5 /HPF (NONE SEEN) 03/23/19 05:05 Urine Bacteria <20 /HPF (NONE SEEN) 03/23/19 05:05 Urine Mucus Heavy /HPF (NONE SEEN) 03/23/19 05:05 Urine Culture Reflexed Not needed 03/23/19 05:05 Urine Glucose Trace (NEG) 03/23/19 05:05 Urine Total Protein Negative (NEG) 03/23/19 05:05 ABO/Rh O POSITIVE 03/23/19 05:17 Antibody Screen Negative 03/22/19 20:10 Medications List Reviewed: Yes Assessment & Plan - Problems (Diagnosis) (1) Cellulitis Onset Date: 10/24/17 Current Visit: No Status: Acute Qualifiers: Site of cellulitis: extremity Laterality: right (2) CHF with left ventricular diastolic dysfunction, NYHA class 1 Onset Date: 01/12/17 Current Visit: No Status: Chronic (3) Chronic acquired lymphedema Onset Date: 01/12/17 Current Visit: No Status: Chronic (4) Diabetic neuropathy Current Visit: No Status: Chronic Qualifiers: Diabetes mellitus type: type 2 Diabetes mellitus complication detail: diabetic polyneuropathy Qualified Code(s): E11.42 - Type 2 diabetes mellitus with diabetic polyneuropathy (5) Obesity Current Visit: No Status: Chronic Qualifiers: Obesity type: unspecified obesity type Obesity classification: adult class 3 (BMI >= 40) Serious obesity comorbidity presence: with serious comorbidity Body mass index: BMI 60.0-69.9 Qualified Code(s): E66.9 - Obesity, unspecified; Z68.44 - Body mass index (BMI) 60.0-69.9, adult (6) Stasis dermatitis of both legs Onset Date: 01/12/17 Current Visit: No Status: Chronic Discharge Plan: Snf Plan to discharge in: 48 Hours - Code Status/Comfort Care Code Status Assessed: Yes Code Status: Full Code Physician Review: Patient Assessed, Agree with Above Assessment and Plan Physician Review Additional Text: # Bilateral LE cellulitis - still improving LE girth and size -c/w MARTHA dsg -follow wound care -c/w abx regime and lasix 03/23-due to chronic lymphedema -follow wound care plans , awaiting offficial consult note - c/w abx , may need dapto since allergic to vanco - follow blood cx -c/w MARTHA dsg and LE elevation # LE edema - improving , c/w lasix 03/24-Echo shows normal EF of 65% but no mention of pul HTN which was reason for echo -still possible pulmonary HTN -counselling on noctrurnal CPAP trial while inpatient discussed , will need sleep study as outpt # HTN -controlled , c/w med # DM -diet controlled, c/w Insulin sliding scale and accuchecks # DVT prop - sc lovenox # Presumed OBSA -with suspected pul HTN - continue CPAP if able to tolertate at night , may need sleep study as outpt # Hypokalemia- will replete , increase kcl to bid # Dispo - awaiting transfer to [facility]
[2019-03-25] MEDS: IPRATROPIUM BROM 0.5MG/2.5ML NEB PRN (22:27)
[2019-03-25] MEDS: ALBUTEROL 2.5 MG/3 ML NEB SOL NEB PRN (22:27)
[2019-03-25] MEDS: HYDROCODONE/APAP 5/325 MG TAB PO PRN (22:52)
[2019-03-26] MEDS: CEFAZOLIN/SWI 1gm 1 GM/10 ML SYR IV SCH ×3 (00:43→17:02)
[2019-03-26] MEDS: CLINDAMYCIN INJ 600 MG in NA CHLORIDE 0.9% 50 ML IV SCH ×3 (00:45→17:00)
[2019-03-26 05:57] LABS: Absolute Lymphocytes (CBC) 1.8 K/uL (0.7-4.9); Hematocrit 39.4 % (39.6-49.0); Lymphocytes % 25.8 % (15.3-44.8); MPV 9.2 fL (7.6-11.3); RBC Red Blood Cell Count 4.48 M/uL (4.33-5.43)
[2019-03-26 06:09] LABS: ALT/SGPT 16 U/L (12-78); AST/SGOT 17 U/L (15-37); Albumin 2.7 g/dL (3.4-5.0); Alkaline Phosphatase 120 U/L (45-117); BUN Blood Urea Nitrogen 11 mg/dL (7-18); Bicarbonate 30 mmol/L (21-32); Bilirubin Total 0.6 mg/dL (0.2-1.0); Glucose Level 130 mg/dL (74-106); Potassium 3.4 mmol/L (3.5-5.1); Protein, Total 7.3 g/dL (6.4-8.2); Sodium Level 140 mmol/L (136-145)
[2019-03-26] MEDS: INSULIN -REGULAR HUMAN 50 UNIT/0.5 ML ML SQ SCH ×4 (07:30→21:00)
[2019-03-26] MEDS: ALBUTEROL 2.5 MG/3 ML NEB SOL NEB PRN (08:02)
[2019-03-26] MEDS: IPRATROPIUM BROM 0.5MG/2.5ML NEB PRN (08:05)
[2019-03-26] MEDS: FORMOTEROL FUMARATE 20 MCG/2 ML VIAL.NEB IH SCH (08:05)
[2019-03-26] MEDS: lisinopriL 20 MG TAB PO SCH (08:58)
[2019-03-26] MEDS: FUROSEMIDE 40 MG/4 ML VIAL IV SCH ×2 (08:58→17:02)
[2019-03-26] MEDS: FAMOTIDINE 20 MG TAB PO SCH (08:58)
[2019-03-26] MEDS: ISOSORBIDE MONO SR 30 MG TAB PO SCH (08:58)
[2019-03-26] MEDS: SPIRONOLACTONE 25 MG TABLET PO SCH ×2 (08:58→21:18)
[2019-03-26] MEDS ORDERED: NA CHLORIDE 0.9% 50 ML ONE (08:58)
[2019-03-26] MEDS: POTASSIUM CL SA 10 MEQ TAB PO SCH ×2 (08:58→21:18)
[2019-03-26] MEDS ORDERED: POTASSIUM 25 MEQ EFFERV TAB PO ONE (11:38)
--- NOTE | 2019-03-26 11:41 | P.PN ---
Subjective Date of Service: 03/26/19 Chief Complaint: LE cellulitis Subjective: C/O voiced c/o of itching of leg under dsg Review of Systems 10-point ROS is otherwise unremarkable Physical Examination - Vital Signs Temperature: 97 F Blood Pressure: 134/71 Pulse: 66 Respirations: 20 Pulse Ox (%): 100 - Physical Exam General: In no apparent distress, Obese HEENT: Atraumatic, Normocephalic Respiratory: Clear to auscultation bilaterally, Normal air movement Gastrointestinal: Normal bowel sounds, Soft and benign Integumentary: Tenderness/swelling (dsg insitu b/l ), Pressure ulcer Other Physical/Emotional Findings: 03/24 still b/l LE swelling , MARTHA wrap insitu , less intense edema. 03/22-RLE with immense swelling, fetid smell, copious draining noted on the bedding, diffuse blistering and crack/broken skin. tenderness to palpation. LLE w/ drainage w/ clear fluid - Studies Microbiology Data (last 24 hrs): 03/22/19 22:15 Clean Catch Urine [place] Count - Final >100,000 CFU/ML. 03/22/19 22:15 Clean Catch Urine - Final Enterococcus Faecalis Medications List Reviewed: Yes Assessment & Plan - Problems (Diagnosis) (1) Cellulitis Onset Date: 10/24/17 Current Visit: No Status: Acute Qualifiers: Site of cellulitis: extremity Laterality: right (2) CHF with left ventricular diastolic dysfunction, NYHA class 1 Onset Date: 01/12/17 Current Visit: No Status: Chronic (3) Chronic acquired lymphedema Onset Date: 01/12/17 Current Visit: No Status: Chronic (4) Diabetic neuropathy Current Visit: No Status: Chronic Qualifiers: Diabetes mellitus type: type 2 Diabetes mellitus complication detail: diabetic polyneuropathy Qualified Code(s): E11.42 - Type 2 diabetes mellitus with diabetic polyneuropathy (5) Obesity Current Visit: No Status: Chronic Qualifiers: Obesity type: unspecified obesity type Obesity classification: adult class 3 (BMI >= 40) Serious obesity comorbidity presence: with serious comorbidity Body mass index: BMI 60.0-69.9 Qualified Code(s): E66.9 - Obesity, unspecified; Z68.44 - Body mass index (BMI) 60.0-69.9, adult (6) Stasis dermatitis of both legs Onset Date: 01/12/17 Current Visit: No Status: Chronic Physician Review: Patient Assessed, Agree with Above Assessment and Plan Physician Review Additional Text: - continue wound care per ID - replete k today - await plans of wound care for transfer vs home with abx -will place pICC LINE today others as prior 03/25 # Bilateral LE cellulitis - c/w wound dsg changes -follow Dr Ruiz -follow wound care -c/w abx regime and lasix 03/23-due to chronic lymphedema -follow wound care plans , awaiting offficial consult note - c/w abx , may need dapto since allergic to vanco - follow blood cx -c/w MARTHA dsg and LE elevation # LE edema - improving , c/w lasix 03/24-Echo shows normal EF of 65% but no mention of pul HTN which was reason for echo -still possible pulmonary HTN -counselling on noctrurnal CPAP trial while inpatient discussed , will need sleep study as outpt # HTN -controlled , c/w med # DM -diet controlled, c/w Insulin sliding scale and accuchecks # DVT prop - sc lovenox # Presumed OBSA -with suspected pul HTN - continue CPAP if able to tolertate at night , may need sleep study as outpt # Hypokalemia- will replete , increase kcl to bid # Dispo - awaiting transfer to [facility]
--- NOTE | 2019-03-26 21:05 | PN ---
Subjective: Patient is lying in bed. Denies any headache, nausea, vomiting, chest pain, abdominal p ain, constipation, or diarrhea. Objective: Vital Signs: Temperature 97, pulse 69, respirations 16, blood pressure 110/55. Lungs: Basal crackles. Heart: S1, S2. Regular. Abdomen: Soft, nontender. Bowel sounds present. Extremities: 4+ nonpitting edema. Laboratory Data: WBC 7.1, hemoglobin 14, platelets are 273. Chemistry shows sodium 140, potassium 3 .4, chloride 105, bicarb 30, BUN 11, creatinine 0.7, glucose 130. Assessment And Plan: Multiple stasis ulcers, improving, decrease of edema. Patient to continue anti biotic and wound care with Xeroform to the lower extremity, covering with gauze and [place] wrap. Keep l egs elevated as much as possible. Continue antibiotic for 3 to 4 weeks. We will follow the patient closely. NF/MODL Voice ID: [id number] Report ID: [id number]
[2019-03-26] MEDS: HYDROCODONE/APAP 5/325 MG TAB PO PRN (21:25)
[2019-03-27] MEDS: CLINDAMYCIN INJ 600 MG in NA CHLORIDE 0.9% 50 ML IV SCH ×3 (00:15→16:34)
[2019-03-27] MEDS: CEFAZOLIN/SWI 1gm 1 GM/10 ML SYR IV SCH ×3 (00:15→16:33)
[2019-03-27] MEDS: MORPHINE 2 MG/ML SYR IV PRN ×2 (00:16→21:16)
[2019-03-27 06:17] LABS: Basophils % 1.2 % (0-1.3); Hematocrit 42.1 % (39.6-49.0); Lymphocytes % 25.5 % (15.3-44.8); MPV 9.2 fL (7.6-11.3); RBC Red Blood Cell Count 4.76 M/uL (4.33-5.43)
[2019-03-27 07:09] LABS: ALT/SGPT 15 U/L (12-78); AST/SGOT 20 U/L (15-37); Albumin 2.7 g/dL (3.4-5.0); Alkaline Phosphatase 120 U/L (45-117); BUN Blood Urea Nitrogen 14 mg/dL (7-18); Bicarbonate 30 mmol/L (21-32); Bilirubin Total 0.7 mg/dL (0.2-1.0); Glucose Level 121 mg/dL (74-106); Potassium 3.6 mmol/L (3.5-5.1); Protein, Total 7.4 g/dL (6.4-8.2); Sodium Level 142 mmol/L (136-145)
[2019-03-27] MEDS: INSULIN -REGULAR HUMAN 50 UNIT/0.5 ML ML SQ SCH ×4 (07:30→20:51)
[2019-03-27] MEDS: FORMOTEROL FUMARATE 20 MCG/2 ML VIAL.NEB IH SCH (08:00)
[2019-03-27] MEDS: FAMOTIDINE 20 MG TAB PO SCH (09:35)
[2019-03-27] MEDS: POTASSIUM CL SA 10 MEQ TAB PO SCH ×2 (09:35→20:50)
[2019-03-27] MEDS: lisinopriL 20 MG TAB PO SCH (09:36)
[2019-03-27] MEDS: SPIRONOLACTONE 25 MG TABLET PO SCH ×2 (09:36→20:50)
[2019-03-27] MEDS: ISOSORBIDE MONO SR 30 MG TAB PO SCH (09:36)
[2019-03-27] MEDS: FUROSEMIDE 40 MG/4 ML VIAL IV SCH ×2 (09:36→16:34)
--- NOTE | 2019-03-27 12:03 | P.PN ---
Subjective Date of Service: 03/27/19 Chief Complaint: LE cellulitis Subjective: No new changes, No C/O voiced no new changes anxious to go to [place] Review of Systems Unremarkable Physical Examination - Vital Signs Temperature: 96.5 F Blood Pressure: 134/67 Pulse: 65 Respirations: 18 Pulse Ox (%): 98 - Physical Exam General: Alert, In no apparent distress, Oriented x3, Obese HEENT: Atraumatic, Normocephalic, PERRLA Neck: 2+ carotid pulse no bruit, JVD not distended Respiratory: Clear to auscultation bilaterally, Normal air movement Cardiovascular: No edema, Regular rate/rhythm, Normal S1 S2 Gastrointestinal: Normal bowel sounds, Soft and benign Musculoskeletal: No tenderness (dec edema , dsg over b/l LE ), Swelling Neurological: Normal gait, Normal strength at 5/5 x4 extr Other Physical/Emotional Findings: 03/24 still b/l LE swelling , MARTHA wrap insitu , less intense edema. 03/22-RLE with immense swelling, fetid smell, copious draining noted on the bedding, diffuse blistering and crack/broken skin. tenderness to palpation. LLE w/ drainage w/ clear fluid - Studies Laboratory Last Values WBC 7.7 K/uL (4.3-10.9) 03/27/19 05:34 RBC 4.76 M/uL (4.33-5.43) 03/27/19 05:34 Hgb 14.2 g/dL (13.6-17.9) 03/27/19 05:34 Hct 42.1 % (39.6-49.0) 03/27/19 05:34 MCV 88.6 fL (80-100) 03/27/19 05:34 MCH 29.8 pg (27.0-35.0) 03/27/19 05:34 MCHC 33.6 g/dL (32.0-36.0) 03/27/19 05:34 RDW 14.8 % (12.1-15.2) 03/27/19 05:34 Plt Count 271 K/uL (152-406) 03/27/19 05:34 MPV 9.2 fL (7.6-11.3) 03/27/19 05:34 Neutrophils % 56.8 % (41.7-73.7) 03/27/19 05:34 Lymphocytes % 25.5 % (15.3-44.8) 03/27/19 05:34 Monocytes % 9.0 % (3.3-12.3) 03/27/19 05:34 Eosinophils % 7.5 % (0-4.4) H 03/27/19 05:34 Basophils % 1.2 % (0-1.3) 03/27/19 05:34 Absolute Neutrophils 4.4 K/uL (1.8-8.0) 03/27/19 05:34 Absolute Lymphocytes 2.0 K/uL (0.7-4.9) 03/27/19 05:34 Absolute Monocytes 0.7 K/uL (0.1-1.3) 03/27/19 05:34 Absolute Eosinophils 0.6 K/uL (0-0.5) H 03/27/19 05:34 Absolute Basophils 0.1 K/uL (0-0.5) 03/27/19 05:34 ESR [place] 28 mm/HR (0-20) H 03/23/19 05:17 PT 13.2 SECONDS (9.5-12.5) H 03/22/19 20:20 INR 1.12 03/22/19 20:20 APTT 27.7 SECONDS (24.3-36.9) 03/22/19 20:20 Sodium 142 mmol/L (136-145) 03/27/19 05:34 Potassium 3.6 mmol/L (3.5-5.1) 03/27/19 05:34 Chloride 106 mmol/L (98-107) 03/27/19 05:34 Carbon Dioxide 30 mmol/L (21-32) 03/27/19 05:34 BUN 14 mg/dL (7-18) 03/27/19 05:34 Creatinine 0.74 mg/dL (0.55-1.3) 03/27/19 05:34 Estimated GFR > 90 mL/min (=/>90) 03/27/19 05:34 Glucose 121 mg/dL (74-106) H 03/27/19 05:34 POC Glucose 160 mg/dl (65-120) H 03/27/19 11:23 Hemoglobin A1c 7.2 % (4.2-6.3) H 03/23/19 05:17 Lactic Acid 1.5 mmol/L (0.4-2.0) 03/22/19 20:20 Calcium 8.4 mg/dL (8.5-10.1) L 03/27/19 05:34 Magnesium 1.8 mg/dL (1.8-2.4) 03/23/19 05:17 Total Bilirubin 0.7 mg/dL (0.2-1.0) 03/27/19 05:34 Direct Bilirubin 0.1 mg/dL (0-0.2) 03/22/19 20:20 AST 20 U/L (15-37) 03/27/19 05:34 ALT 15 U/L (12-78) 03/27/19 05:34 Alkaline Phosphatase 120 U/L (45-117) H 03/27/19 05:34 Creatine Kinase 55 U/L (39-308) 03/22/19 20:20 CK-MB (CK-2) < 1.0 ng/mL (0.3-3.6) 03/22/19 20:20 Rapid Troponin I < 0.02 ng/mL (0.0-0.045) 03/22/19 20:20 C-Reactive Protein 30.50 mg/L (<3.00) H 03/22/19 20:20 Serum Total Protein 7.4 g/dL (6.4-8.2) 03/27/19 05:34 Albumin 2.7 g/dL (3.4-5.0) L 03/27/19 05:34 Globulin 4.7 g/dL (2.3-3.5) H 03/27/19 05:34 Albumin/Globulin Ratio 0.6 (1.1-1.8) L 03/27/19 05:34 Lipase 166 U/L (73-393) 03/22/19 20:20 Procalcitonin < 0.05 ng/mL (<0.50) 03/22/19 20:20 TSH 3.200 uIU/mL (0.360-3.740) 03/23/19 05:17 Urine Color Dk yellow 03/23/19 05:05 Urine Appearance Cloudy 03/23/19 05:05 Urine pH 6.0 (5.0-7.0) 03/23/19 05:05 Ur Specific [place] 1.025 (1.005-1.030) 03/23/19 05:05 Urine Ketones Negative (NEG) 03/23/19 05:05 Urine Blood Negative (NEG) 03/23/19 05:05 Urine Nitrite Negative (NEG) 03/23/19 05:05 Urine Bilirubin Negative (NEG) 03/23/19 05:05 Urine Urobilinogen 1.0 mg/dL (0.2-1.0) 03/23/19 05:05 Ur Leukocyte Esterase 2+ (NEG) H 03/23/19 05:05 Urine RBC None seen /HPF (NONE SEEN) 03/23/19 05:05 Urine WBC >50 /HPF (<5) H 03/23/19 05:05 Ur Squamous Epith Cells <5 /HPF (NONE SEEN) 03/23/19 05:05 Urine Bacteria <20 /HPF (NONE SEEN) 03/23/19 05:05 Urine Mucus Heavy /HPF (NONE SEEN) 03/23/19 05:05 Urine Culture Reflexed Not needed 03/23/19 05:05 Urine Glucose Trace (NEG) 03/23/19 05:05 Urine Total Protein Negative (NEG) 03/23/19 05:05 ABO/Rh O POSITIVE 03/23/19 05:17 Antibody Screen Negative 03/22/19 20:10 Medications List Reviewed: Yes Assessment & Plan - Problems (Diagnosis) (1) Cellulitis Onset Date: 10/24/17 Current Visit: No Status: Acute Qualifiers: Site of cellulitis: extremity Laterality: right (2) CHF with left ventricular diastolic dysfunction, NYHA class 1 Onset Date: 01/12/17 Current Visit: No Status: Chronic (3) Chronic acquired lymphedema Onset Date: 01/12/17 Current Visit: No Status: Chronic (4) Diabetic neuropathy Current Visit: No Status: Chronic Qualifiers: Diabetes mellitus type: type 2 Diabetes mellitus complication detail: diabetic polyneuropathy Qualified Code(s): E11.42 - Type 2 diabetes mellitus with diabetic polyneuropathy (5) Obesity Current Visit: No Status: Chronic Qualifiers: Obesity type: unspecified obesity type Obesity classification: adult class 3 (BMI >= 40) Serious obesity comorbidity presence: with serious comorbidity Body mass index: BMI 60.0-69.9 Qualified Code(s): E66.9 - Obesity, unspecified; Z68.44 - Body mass index (BMI) 60.0-69.9, adult (6) Stasis dermatitis of both legs Onset Date: 01/12/17 Current Visit: No Status: Chronic Physician Review: Patient Assessed, Agree with Above Assessment and Plan Physician Review Additional Text: -continue current mgt -follow placement at [facility] , papers sent today -c/w wound care per ID with xerofoam - c/w abx regime now -c/w lasix , edema over LE decreasing Prior 03/25 # Bilateral LE cellulitis - c/w wound dsg changes -follow Dr Ruiz -follow wound care -c/w abx regime and lasix 03/23-due to chronic lymphedema -follow wound care plans , awaiting offficial consult note - c/w abx , may need dapto since allergic to vanco - follow blood cx -c/w MARTHA dsg and LE elevation # LE edema - improving , c/w lasix 03/24-Echo shows normal EF of 65% but no mention of pul HTN which was reason for echo -still possible pulmonary HTN -counselling on noctrurnal CPAP trial while inpatient discussed , will need sleep study as outpt # HTN -controlled , c/w med # DM -diet controlled, c/w Insulin sliding scale and accuchecks # DVT prop - sc lovenox # Presumed OBSA -with suspected pul HTN - continue CPAP if able to tolertate at night , may need sleep study as outpt # Hypokalemia- c/w kcl bid # Dispo - awaiting transfer to [facility]
[2019-03-27] MEDS: LIDOCAINE 4% PATCH TOP SCH (16:33)
--- NOTE | 2019-03-27 18:09 | PN ---
Subjective: The patient is lying in bed. Had a fall yesterday, where he twisted his left knee. Den ies any other problems. His swelling has been consistently going down. Objective: Vital Signs: Temperature 96, pulse 65, respirations 18, blood pressure 134/67. Lungs: Basal crackles. Heart: S1, S2. Regular. Abdomen: Soft, nontender. Bowel sounds present. Extremities: 4+ nonpitting edema. Erythematous changes, ulceration noted more on right than left. Laboratory Data: Shows WBC 7.7, hemoglobin 14.2, platelets are 271. Chemistry shows sodium 142, pot assium 3.6, chloride 106, bicarb 30, BUN 14, creatinine 0.74, glucose 121. Assessment And Plan: Left knee pain because of trauma. Recommend to apply Biofreeze or lidocaine pa tch. Continue keeping legs elevated as much as possible. Continue IV antibiotics and wound care as recommended. No new recommendation other than this. We will follow patient as needed. NF/MODL Voice ID: [id number] Report ID: [id number]
[2019-03-28] MEDS: CLINDAMYCIN INJ 600 MG in NA CHLORIDE 0.9% 50 ML IV SCH ×3 (00:47→17:34)
[2019-03-28] MEDS: CEFAZOLIN/SWI 1gm 1 GM/10 ML SYR IV SCH ×3 (00:47→17:34)
[2019-03-28] MEDS ORDERED: LIDOCAINE 1% 20 ML MDV ONE (02:44)
[2019-03-28] MEDS: MORPHINE 2 MG/ML SYR IV PRN (03:57)
[2019-03-28 06:00] LABS: Absolute Lymphocytes (CBC) 1.9 K/uL (0.7-4.9); Hematocrit 42.6 % (39.6-49.0); Lymphocytes % 26.7 % (15.3-44.8); MPV 9.2 fL (7.6-11.3); RBC Red Blood Cell Count 4.83 M/uL (4.33-5.43)
[2019-03-28] MEDS: INSULIN -REGULAR HUMAN 50 UNIT/0.5 ML ML SQ SCH ×4 (07:30→20:26)
[2019-03-28] MEDS: POTASSIUM CL SA 10 MEQ TAB PO SCH ×2 (09:33→20:25)
[2019-03-28] MEDS: LIDOCAINE 4% PATCH TOP SCH (09:33)
[2019-03-28] MEDS: lisinopriL 20 MG TAB PO SCH (09:34)
[2019-03-28] MEDS: FAMOTIDINE 20 MG TAB PO SCH (09:34)
[2019-03-28] MEDS: SPIRONOLACTONE 25 MG TABLET PO SCH ×2 (09:34→20:25)
[2019-03-28] MEDS: ISOSORBIDE MONO SR 30 MG TAB PO SCH (09:34)
[2019-03-28] MEDS: FUROSEMIDE 40 MG/4 ML VIAL IV SCH ×2 (09:34→17:34)
[2019-03-28] MEDS: FORMOTEROL FUMARATE 20 MCG/2 ML VIAL.NEB IH SCH (09:45)
--- NOTE | 2019-03-28 11:19 | RAD REPORT ---
EXAM DESCRIPTION: RAD - Chest Single View - 03/28/2019 4:07 am CLINICAL HISTORY: 58 years Male, PICC Placement COMPARISON: 06/23/2018 TECHNIQUE: Single portable x-ray view of the chest performed on 03/28/2019 at 3:50 AM FINDINGS: The lungs are well expanded. There is very mild coarsening of the lung markings which may reflect mild vascular congestion. No focal airspace consolidation is identified. The lateral costophr enic sulci are clear. There is no evidence of a pneumothorax. The cardiac silhouette is stable and is prominent. The mediastinal contours are normal. No acute osseous abnormality is identified. No focal soft tissue abnormalities are seen. Lines and tubes: The left upper extremity PICC line catheter tip overlies the region of the superio r vena cava. IMPRESSION: 1. The tip of the left upper extremity PICC line catheter overlies the region of the sup erior vena cava. 2. Radiographic findings suggesting mild vascular congestion. Electronically signed by: Diane Christie DO 03/28/2019 4:30 AM PRINTING MECHANIST Due to temporary technical issues with the PACS/Fluency reporting system, reports are being signed by the in house radiologist as a courtesy to ensure prompt reporting. The interpreting radiologist is f ully responsible for the content of the report.
--- NOTE | 2019-03-28 14:08 | P.PN ---
Subjective Date of Service: 03/28/19 Chief Complaint: LE cellulitis Review of Systems 10-point ROS is otherwise unremarkable Physical Examination - Vital Signs Temperature: 97.3 F Blood Pressure: 112/60 Pulse: 84 Respirations: 20 Pulse Ox (%): 95 - Physical Exam General: Alert, In no apparent distress HEENT: Atraumatic, PERRLA, EOMI Neck: Supple, JVD not distended Respiratory: Clear to auscultation bilaterally, Normal air movement Cardiovascular: Regular rate/rhythm, Normal S1 S2 Gastrointestinal: Normal bowel sounds, No tenderness Musculoskeletal: Erythema, Tenderness, Warm[place] Integumentary: Tenderness/swelling Neurological: Normal speech, Normal tone, Normal affect Lymphatics: No axilla or inguinal lymphadenopathy Other Physical/Emotional Findings: 03/24 still b/l LE swelling , MARTHA wrap insitu , less intense edema. 03/22-RLE with immense swelling, fetid smell, copious draining noted on the bedding, diffuse blistering and crack/broken skin. tenderness to palpation. LLE w/ drainage w/ clear fluid - Studies Microbiology Data (last 24 hrs): 03/22/19 20:38 Blood - Blood Aerobic Blood Culture - Final No growth in 5 days. 03/22/19 20:38 Blood - Blood Anaerobic Blood Culture - Final No growth in 5 days. 03/22/19 20:20 Blood - Blood Aerobic Blood Culture - Final No growth in 5 days. 03/22/19 20:20 Blood - Blood Anaerobic Blood Culture - Final No growth in 5 days. Medications List Reviewed: Yes Assessment And Plan Discharge Plan: Home Plan to discharge in: Greater than 2 days - Code Status/Comfort Care Code Status Assessed: Yes Physician Review: Patient Assessed, Agree with Above Assessment and Plan Physician Review Additional Text: Assessment and plan 1. BL LE cellulites due to chronic Lymphedema -Currently on IV clindamycin and Cefepime -currently also on IV Lasix -Wound care consulted. Reccs noted -ID consulted. Reccs noted -Currently Reccs IV abx for 14 days and SNF placement 2. Urinary tract infection -urine culture positive for enterococcus -sensitive to oral medication however patient currently on IV clindamycin cefepime for bilateral lower extremity cellulitis -will continue that. Blood cultures negative thus far 3. HTN -controlled , c/w med 4. DM -diet controlled, c/w Insulin sliding scale and accuchecks 5. Presumed SHAHID - continue CPAP if able to tolertate at night , will need sleep study as outpt Disposition: Pending placement at the [facility] facility for long-term IV antibiotics and wound care Critical Care: No
[2019-03-29] MEDS: CLINDAMYCIN INJ 600 MG in NA CHLORIDE 0.9% 50 ML IV SCH ×3 (00:06→17:00)
[2019-03-29] MEDS: CEFAZOLIN/SWI 1gm 1 GM/10 ML SYR IV SCH ×3 (00:06→17:11)
[2019-03-29] MEDS: MORPHINE 2 MG/ML SYR IV PRN (00:53)
[2019-03-29 06:14] LABS: Absolute Lymphocytes (CBC) 2.2 K/uL (0.7-4.9); Basophils % 0.9 % (0-1.3); Hematocrit 44.3 % (39.6-49.0); Lymphocytes % 26.7 % (15.3-44.8); MPV 9.3 fL (7.6-11.3); RBC Red Blood Cell Count 5.03 M/uL (4.33-5.43)
[2019-03-29] MEDS: INSULIN -REGULAR HUMAN 50 UNIT/0.5 ML ML SQ SCH ×4 (07:30→21:06)
[2019-03-29] MEDS: IPRATROPIUM BROM 0.5MG/2.5ML NEB PRN (07:35)
[2019-03-29] MEDS: FORMOTEROL FUMARATE 20 MCG/2 ML VIAL.NEB IH SCH (07:35)
[2019-03-29] MEDS: ALBUTEROL 2.5 MG/3 ML NEB SOL NEB PRN (07:35)
[2019-03-29] MEDS: ISOSORBIDE MONO SR 30 MG TAB PO SCH (08:18)
[2019-03-29] MEDS: FUROSEMIDE 40 MG/4 ML VIAL IV SCH (08:18)
[2019-03-29] MEDS: SPIRONOLACTONE 25 MG TABLET PO SCH ×2 (08:18→21:06)
[2019-03-29] MEDS: lisinopriL 20 MG TAB PO SCH (08:18)
[2019-03-29] MEDS: POTASSIUM CL SA 10 MEQ TAB PO SCH ×2 (08:18→21:05)
[2019-03-29] MEDS: FAMOTIDINE 20 MG TAB PO SCH (08:18)
[2019-03-29] MEDS: LIDOCAINE 4% PATCH TOP SCH (08:18)
--- NOTE | 2019-03-29 15:15 | P.PN ---
Subjective Date of Service: 03/29/19 Primary Care Provider: Dr. Griggs Chief Complaint: LE cellulitis Subjective: Improving Physical Examination - Vital Signs Temperature: 97.0 F Blood Pressure: 122/63 Pulse: 65 Respirations: 16 Pulse Ox (%): 98 - Physical Exam General: Alert, In no apparent distress, Oriented x3, Cooperative HEENT: Atraumatic Neck: Supple Respiratory: Clear to auscultation bilaterally, Normal air movement Cardiovascular: Normal pulses, Regular rate/rhythm Other Physical/Emotional Findings: 03/24 still b/l LE swelling , MARTHA wrap insitu , less intense edema. 03/22-RLE with immense swelling, fetid smell, copious draining noted on the bedding, diffuse blistering and crack/broken skin. tenderness to palpation. LLE w/ drainage w/ clear fluid - Studies Medications List Reviewed: Yes Assessment & Plan Discharge Plan: LTAC Physician Review Additional Text: Impression: Bilateral lower extremity cellulitis complicated with chronic lymphedema UTI, urine culture positive for Enterococcus Hypertension COPD Chronic diastolic CHF Diabetes mellitus type 2 Obstructive sleep apnea Plan: Bilateral lower extremity cellulitis complicated with chronic lymphedema: PICC line in place. Continue with IV antibiotic therapy clindamycin 600 mg 3 times a day and and Ancef 3 times a day. Infectious Disease recommends a total 14 day treatment of IV antibiotic therapy. Infectious Disease recommends long- term acute care facility placement. Await approval for long-term acute care facility placement to continue wound care and IV antibiotic therapy. UTI, urine culture positive for Enterococcus: Continue with IV antibiotic therapy as recommended above. Hypertension: Continue current medications. Will adjust accordingly. Diabetes mellitus type 2: Patient on sliding scale. Continue to monitor Accu- Cheks. COPD: Continue with COPD medication. Maintain sats above 90% Chronic diastolic CHF: Will change IV Lasix to oral. Continue Aldactone. Obstructive sleep apnea: Will recommend sleep study as an outpatient. Time Spent Managing Pts Care (In Minutes): 55
[2019-03-29] MEDS: FUROSEMIDE 40 MG TABLET PO SCH (17:11)
[2019-03-29] MEDS: ENOXAPARIN 40 MG/0.4 ML SQ SCH (17:14)
[2019-03-29] MEDS ORDERED: TRAMADOL HCL 50 MG TAB PO PRN (22:04)
[2019-03-29] MEDS ORDERED: HYDROCODONE/APAP 5/325 MG TAB PO PRN (22:04)
[2019-03-29] MEDS ORDERED: DOCUSATE NA 100 MG CAP PO PRN (22:04)
[2019-03-30] MEDS: CLINDAMYCIN INJ 600 MG in NA CHLORIDE 0.9% 50 ML IV SCH ×3 (00:25→17:09)
[2019-03-30] MEDS: CEFAZOLIN/SWI 1gm 1 GM/10 ML SYR IV SCH ×3 (00:25→17:09)
[2019-03-30] MEDS: INSULIN -REGULAR HUMAN 50 UNIT/0.5 ML ML SQ SCH ×4 (07:30→20:47)
[2019-03-30] MEDS: FORMOTEROL FUMARATE 20 MCG/2 ML VIAL.NEB IH SCH (07:55)
--- NOTE | 2019-03-30 08:29 | PN ---
Subjective: Patient lying in bed. Denies any headache, nausea, vomiting, chest pain, abdominal pain , constipation, or diarrhea. Complains of pain in his right foot. Objective: Vital Signs: Temperature 97, pulse 65, respirations 16, blood pressure 123/63. Lungs: Basal crackles. Heart: S1, S2. Regular. Abdomen: Soft, nontender. Bowel sounds present. Extremities: Right lower extremity 4+ with nonpitting edema, with stasis dermatitis and ulceration. Laboratory Data: WBC 8.1, hemoglobin 15, platelets 286. No new chemistry available today. Micro da ta shows Enterococcus faecalis in his urine. Blood cultures are negative for 5 days. Patient is cur rently being treated with cefazolin and clindamycin. Assessment And Plan: 1.Bilateral lower extremity stasis dermatitis and stasis ulcer with cellulitis. 2.Lymphedema. Continue antibiotic and wound care. We will follow the patient as needed. DARREN/KIMBERLY Voice ID: [id number] Report ID: [id number]
[2019-03-30] MEDS: FAMOTIDINE 20 MG TAB PO SCH (08:45)
[2019-03-30] MEDS: POTASSIUM CL SA 10 MEQ TAB PO SCH ×2 (08:45→20:47)
[2019-03-30] MEDS: LIDOCAINE 4% PATCH TOP SCH (08:45)
[2019-03-30] MEDS: SPIRONOLACTONE 25 MG TABLET PO SCH ×2 (08:46→20:46)
[2019-03-30] MEDS: lisinopriL 20 MG TAB PO SCH (08:46)
[2019-03-30] MEDS: FUROSEMIDE 40 MG TABLET PO SCH ×2 (08:46→17:10)
[2019-03-30] MEDS: ISOSORBIDE MONO SR 30 MG TAB PO SCH (08:46)
--- NOTE | 2019-03-30 09:23 | P.PN ---
Addendum entered and electronically signed by Brien Chakraborty PA 03/30/19 14:27 : [employer] was called for peer-peer. Declined LTAC. Consulted social work again and will attempt SNF Original Note: Subjective Date of Service: 03/30/19 Primary Care Provider: Dr. Griggs Chief Complaint: LE cellulitis Subjective: No new changes <Brien Chakraborty - Last Filed: 03/30/19 09:18> Date of Service: 03/30/19 <Allen Marcus - Last Filed: 03/30/19 20:35> Review of Systems General: Unremarkable Eyes: Unremarkable ENT: Unremarkable Respiratory: Unremarkable Cardiovascular: Unremarkable Gastrointestinal: Unremarkable Musculoskeletal: Leg Pain Integumentary: As per HPI Neurological: Unremarkable <Brien Chakraborty - Last Filed: 03/30/19 09:18> Physical Examination - Vital Signs Temperature: 98.7 F Blood Pressure: 139/68 Pulse: 70 Respirations: 16 Pulse Ox (%): 95 - Physical Exam General: Alert, Oriented x3 HEENT: Normocephalic, PERRLA, Mucous membr. moist/pink, EOMI Neck: Supple, 2+ carotid pulse no bruit, JVD not distended, No Thyromegaly Respiratory: Clear to auscultation bilaterally, Normal air movement Cardiovascular: Normal pulses, Regular rate/rhythm, Normal S1 S2, No gallops, No rubs, No murmurs, Other (Bilateral lower extremity edema with erythema from cellulitis. Not different from yesterday ) Capillary refill: <2 Seconds Gastrointestinal: Normal bowel sounds, Soft and benign, Non-distended, No tenderness Musculoskeletal: Swelling, Erythema, Tenderness Neurological: Normal speech, Normal strength at 5/5 x4 extr, Normal tone, Other (Decreased sensation to lower extremities secondary to neuropathy ) Other Physical/Emotional Findings: 03/24 still b/l LE swelling , MARTHA wrap insitu , less intense edema. 03/22-RLE with immense swelling, fetid smell, copious draining noted on the bedding, diffuse blistering and crack/broken skin. tenderness to palpation. LLE w/ drainage w/ clear fluid - Studies Medications List Reviewed: Yes <Brien Chakraborty - Last Filed: 03/30/19 09:18> Assessment And Plan - Current Problems (Diagnosis) (1) Cellulitis Onset Date: 10/24/17 Current Visit: No Status: Acute Qualifiers: Site of cellulitis: extremity Site of cellulitis of extremity: lower extremity Laterality: right Qualified Code(s): L03.115 - Cellulitis of right lower limb (2) Anemia Current Visit: No Status: Chronic Qualifiers: Anemia type: other cause Other causes of anemia: chronic disease, other Qualified Code(s): D63.8 - Anemia in other chronic diseases classified elsewhere (3) CHF (congestive heart failure) Current Visit: No Status: Chronic Qualifiers: Heart failure type: diastolic Heart failure chronicity: acute on chronic Qualified Code(s): I50.33 - Acute on chronic diastolic (congestive) heart failure (4) COPD (chronic obstructive pulmonary disease) Current Visit: No Status: Chronic Qualifiers: COPD type: chronic bronchitis Chronic bronchitis type: unspecified Qualified Code(s): J42 - Unspecified chronic bronchitis (5) Diabetic neuropathy Current Visit: No Status: Chronic Qualifiers: Diabetes mellitus type: type 2 Diabetes mellitus complication detail: diabetic polyneuropathy Qualified Code(s): E11.42 - Type 2 diabetes mellitus with diabetic polyneuropathy (6) Hypertension Onset Date: 01/12/17 Current Visit: No Status: Chronic Qualifiers: Hypertension type: essential hypertension Qualified Code(s): I10 - Essential (primary) hypertension (7) Morbid obesity Onset Date: 01/12/17 Current Visit: No Status: Chronic - Plan Patient with no fevers. Pain mild/moderate bilaterally but unchanged from yesterday. Hemodynamically stable at this time. Breath fine. roll scale worker called this AM. Insurance denied [facility] transfer. Will call for peer to peer today to see if we can place him at [facility] for continue abx therapy. Otherwise no new changes. Physician Review: Patient Assessed, Agree with Above Assessment and Plan Physician Review Additional Text: Impression: Bilateral lower extremity cellulitis complicated with chronic lymphedema UTI, urine culture positive for Enterococcus Hypertension COPD Chronic diastolic CHF Diabetes mellitus type 2 Obstructive sleep apnea Plan: Bilateral lower extremity cellulitis complicated with chronic lymphedema: PICC line in place. Continue with IV antibiotic therapy clindamycin 600 mg 3 times a day and and Ancef 3 times a day. Infectious Disease recommends a total 14 day treatment of IV antibiotic therapy. Infectious Disease recommends long- term acute care facility placement. Await approval for long-term acute care facility placement to continue wound care and IV antibiotic therapy. UTI, urine culture positive for Enterococcus: Continue with IV antibiotic therapy as recommended above. Hypertension: Continue current medications. Will adjust accordingly. Diabetes mellitus type 2: Patient on sliding scale. Continue to monitor Accu- Cheks. COPD: Continue with COPD medication. Maintain sats above 90% Chronic diastolic CHF: Will change IV Lasix to oral. Continue Aldactone. Obstructive sleep apnea: Will recommend sleep study as an outpatient. <Brien Chakraborty - Last Filed: 03/30/19 09:18> - Plan Patient was denied long-term acute care facility placement. Peer to peer done. They do not approved. Will pursue skilled placement for long-term IV antibiotic therapy and continued wound care. Patient does not desire high- level skilled placement. Patient will pursue insurance to approve long-term acute care facility. If not patient will require skilled placement. Likely discharge to skilled facility on Tuesday. Time Spent Managing PTS Care (In Minutes): 30 <Allen Marcus - Last Filed: 03/30/19 20:35>
[2019-03-30] MEDS: ENOXAPARIN 40 MG/0.4 ML SQ SCH (17:10)
--- NOTE | 2019-03-30 17:48 | PN ---
Subjective: Patient is lying in bed. Continue to have swelling and redness to the right leg. Denie s any other problems. No fevers. No problems with antibiotics. Objective: Vital Signs: Temperature 98.7, pulse 70, respirations 16, blood pressure 139/68. Lungs: Basal crackles. Heart: S1, S2. Regular. Abdomen: Soft, nontender. Bowel sounds present. Extremities: 4+ nonpitting edema. Ulceration noted to the right leg. Laboratory Data: Lab data reviewed. Medications: Currently, patient on cefazolin and clindamycin. Assessment And Plan: Right lower extremity cellulitis, bilateral lower extremity lymphedema and sp is dermatitis and large stasis ulcer to the right leg. Continue antibiotic and keep leg elevated as much as possible. NF/MODL Voice ID: [id number] Report ID: [id number]
[2019-03-30] MEDS: MORPHINE 2 MG/ML SYR IV PRN (22:37)
[2019-03-31] MEDS: CLINDAMYCIN INJ 600 MG in NA CHLORIDE 0.9% 50 ML IV SCH ×3 (00:59→17:29)
[2019-03-31] MEDS: CEFAZOLIN/SWI 1gm 1 GM/10 ML SYR IV SCH ×3 (01:00→17:25)
[2019-03-31] MEDS: INSULIN -REGULAR HUMAN 50 UNIT/0.5 ML ML SQ SCH ×5 (07:30→21:42)
[2019-03-31] MEDS: FAMOTIDINE 20 MG TAB PO SCH (08:10)
[2019-03-31] MEDS: POTASSIUM CL SA 10 MEQ TAB PO SCH ×2 (08:10→21:41)
[2019-03-31] MEDS: FORMOTEROL FUMARATE 20 MCG/2 ML VIAL.NEB IH SCH (08:10)
[2019-03-31] MEDS: LIDOCAINE 4% PATCH TOP SCH (08:11)
[2019-03-31] MEDS: FUROSEMIDE 40 MG TABLET PO SCH ×2 (09:00→17:25)
[2019-03-31] MEDS: SPIRONOLACTONE 25 MG TABLET PO SCH ×2 (10:34→21:40)
[2019-03-31] MEDS: ISOSORBIDE MONO SR 30 MG TAB PO SCH (10:35)
--- NOTE | 2019-03-31 10:37 | P.PN ---
Subjective Date of Service: 03/31/19 Primary Care Provider: Dr. Griggs Chief Complaint: LE cellulitis Patient is complaining of some numbness patent is 1st and 2nd toe and his right calf admitted with a bilateral cellulitis he seems to be improving pain has declined Review of Systems Unremarkable Physical Examination - Vital Signs Temperature: 97.9 F Blood Pressure: 117/69 Pulse: 58 Respirations: 20 Pulse Ox (%): 95 - Physical Exam General: Alert, In no apparent distress, Oriented x3 Respiratory: Clear to auscultation bilaterally Cardiovascular: Normal S1 S2, Edema Integumentary: Other (Extremity short redness on the right side and he has chronic lower extremity lymphedema) Other Physical/Emotional Findings: 03/24 still b/l LE swelling , MARTHA wrap insitu , less intense edema. 03/22-RLE with immense swelling, fetid smell, copious draining noted on the bedding, diffuse blistering and crack/broken skin. tenderness to palpation. LLE w/ drainage w/ clear fluid - Studies Medications List Reviewed: Yes Assessment & Plan - Problems (Diagnosis) (1) Cellulitis Onset Date: 10/24/17 Current Visit: No Status: Acute Plan: Patient is 58 years of age with a history of recurrent cellulitis seen by infectious disease continue with antibiotics Enterococcus in the urine blood cultures are negative has some numbness in his right leg over patient is able to bear weight no weakness is afebrile vital signs are all stable white count is normal he was refuse transferred to who an LTAC swelling has decreased no change in treatment Qualifiers: Site of cellulitis: extremity Site of cellulitis of extremity: lower extremity Laterality: right Qualified Code(s): L03.115 - Cellulitis of right lower limb Physician Review: Patient Assessed, Agree with Above Assessment and Plan Physician Review Additional Text: Impression: Bilateral lower extremity cellulitis complicated with chronic lymphedema UTI, urine culture positive for Enterococcus Hypertension COPD Chronic diastolic CHF Diabetes mellitus type 2 Obstructive sleep apnea Plan: Bilateral lower extremity cellulitis complicated with chronic lymphedema: PICC line in place. Continue with IV antibiotic therapy clindamycin 600 mg 3 times a day and and Ancef 3 times a day. Infectious Disease recommends a total 14 day treatment of IV antibiotic therapy. Infectious Disease recommends long- term acute care facility placement. Await approval for long-term acute care facility placement to continue wound care and IV antibiotic therapy. UTI, urine culture positive for Enterococcus: Continue with IV antibiotic therapy as recommended above. Hypertension: Continue current medications. Will adjust accordingly. Diabetes mellitus type 2: Patient on sliding scale. Continue to monitor Accu- Cheks. COPD: Continue with COPD medication. Maintain sats above 90% Chronic diastolic CHF: Will change IV Lasix to oral. Continue Aldactone. Obstructive sleep apnea: Will recommend sleep study as an outpatient.
[2019-03-31] MEDS: lisinopriL 20 MG TAB PO SCH (12:49)
[2019-03-31] MEDS: ENOXAPARIN 40 MG/0.4 ML SQ SCH (17:25)
[2019-03-31] MEDS: MORPHINE 2 MG/ML SYR IV PRN (21:41)
[2019-04-01] MEDS: CLINDAMYCIN INJ 600 MG in NA CHLORIDE 0.9% 50 ML IV SCH ×3 (00:25→17:15)
[2019-04-01] MEDS: CEFAZOLIN/SWI 1gm 1 GM/10 ML SYR IV SCH ×3 (00:25→17:16)
[2019-04-01 05:22] LABS: BUN Blood Urea Nitrogen 19 mg/dL (7-18); Bicarbonate 29 mmol/L (21-32); Glucose Level 130 mg/dL (74-106); Potassium 4.2 mmol/L (3.5-5.1); Sodium Level 138 mmol/L (136-145)
[2019-04-01] MEDS: INSULIN -REGULAR HUMAN 50 UNIT/0.5 ML ML SQ SCH ×4 (07:30→21:47)
[2019-04-01 07:51] LABS: Hematocrit 45.6 % (39.6-49.0); MPV 9.5 fL (7.6-11.3); RBC Red Blood Cell Count 5.12 M/uL (4.33-5.43)
[2019-04-01] MEDS: FORMOTEROL FUMARATE 20 MCG/2 ML VIAL.NEB IH SCH (08:10)
[2019-04-01] MEDS: FAMOTIDINE 20 MG TAB PO SCH (08:39)
[2019-04-01] MEDS: POTASSIUM CL SA 10 MEQ TAB PO SCH ×2 (08:39→21:36)
[2019-04-01] MEDS: lisinopriL 20 MG TAB PO SCH (08:40)
[2019-04-01] MEDS: SPIRONOLACTONE 25 MG TABLET PO SCH ×2 (08:40→21:00)
[2019-04-01] MEDS: ISOSORBIDE MONO SR 30 MG TAB PO SCH (08:41)
[2019-04-01] MEDS: FUROSEMIDE 40 MG TABLET PO SCH ×2 (08:41→17:00)
[2019-04-01] MEDS: LIDOCAINE 4% PATCH TOP SCH (08:41)
--- NOTE | 2019-04-01 10:52 | P.PN ---
Subjective Date of Service: 04/01/19 Primary Care Provider: Dr. Griggs Chief Complaint: LE cellulitis Patient is doing better is complaining of numbness in his right foot as being admitted has difficulty ambulating still has some discomfort Review of Systems Unremarkable Physical Examination - Vital Signs Temperature: 97.2 F Blood Pressure: 123/56 Pulse: 62 Respirations: 20 Pulse Ox (%): 95 - Physical Exam General: Alert, Oriented x3 Neck: Supple Respiratory: Clear to auscultation bilaterally Cardiovascular: Edema (Significant lower extremity edema) Neurological: Other (Patient has some numbness on the right foot dry toes dorsal aspect of his right foot ankle is intact no problems with his left foot) Other Physical/Emotional Findings: 03/24 still b/l LE swelling , MARTHA wrap insitu , less intense edema. 03/22-RLE with immense swelling, fetid smell, copious draining noted on the bedding, diffuse blistering and crack/broken skin. tenderness to palpation. LLE w/ drainage w/ clear fluid - Studies Medications List Reviewed: Yes Assessment & Plan - Problems (Diagnosis) (1) Cellulitis Onset Date: 10/24/17 Current Visit: No Status: Acute Plan: Patient is clinically improving from is cellulitis white count is normal patient has Enterococcus in the urine is on IV antibiotics I am not sure why he has numbness in the right foot only this only started since his admission possible neuropathy id to adjust his antibiotics blood cultures negative possible discharge neurological evaluation Qualifiers: Site of cellulitis: extremity Site of cellulitis of extremity: lower extremity Laterality: right Qualified Code(s): L03.115 - Cellulitis of right lower limb Physician Review: Patient Assessed, Agree with Above Assessment and Plan Physician Review Additional Text: Impression: Bilateral lower extremity cellulitis complicated with chronic lymphedema UTI, urine culture positive for Enterococcus Hypertension COPD Chronic diastolic CHF Diabetes mellitus type 2 Obstructive sleep apnea Plan: Bilateral lower extremity cellulitis complicated with chronic lymphedema: PICC line in place. Continue with IV antibiotic therapy clindamycin 600 mg 3 times a day and and Ancef 3 times a day. Infectious Disease recommends a total 14 day treatment of IV antibiotic therapy. Infectious Disease recommends long- term acute care facility placement. Await approval for long-term acute care facility placement to continue wound care and IV antibiotic therapy. UTI, urine culture positive for Enterococcus: Continue with IV antibiotic therapy as recommended above. Hypertension: Continue current medications. Will adjust accordingly. Diabetes mellitus type 2: Patient on sliding scale. Continue to monitor Accu- Cheks. COPD: Continue with COPD medication. Maintain sats above 90% Chronic diastolic CHF: Will change IV Lasix to oral. Continue Aldactone. Obstructive sleep apnea: Will recommend sleep study as an outpatient.
[2019-04-01] MEDS: ENOXAPARIN 40 MG/0.4 ML SQ SCH (17:15)
[2019-04-01] MEDS: MORPHINE 2 MG/ML SYR IV PRN (21:37)
[2019-04-02] MEDS: CLINDAMYCIN INJ 600 MG in NA CHLORIDE 0.9% 50 ML IV SCH ×3 (00:15→17:21)
[2019-04-02] MEDS: CEFAZOLIN/SWI 1gm 1 GM/10 ML SYR IV SCH ×3 (00:16→17:21)
[2019-04-02 04:58] LABS: Hematocrit 44.9 % (39.6-49.0); MPV 9.6 fL (7.6-11.3); RBC Red Blood Cell Count 5.04 M/uL (4.33-5.43)
[2019-04-02 05:10] LABS: BUN Blood Urea Nitrogen 17 mg/dL (7-18); Bicarbonate 28 mmol/L (21-32); Glucose Level 133 mg/dL (74-106); Potassium 4.4 mmol/L (3.5-5.1); Sodium Level 137 mmol/L (136-145)
[2019-04-02] MEDS: INSULIN -REGULAR HUMAN 50 UNIT/0.5 ML ML SQ SCH ×4 (07:30→20:55)
[2019-04-02] MEDS: FORMOTEROL FUMARATE 20 MCG/2 ML VIAL.NEB IH SCH (08:02)
[2019-04-02] MEDS: LIDOCAINE 4% PATCH TOP SCH (08:31)
[2019-04-02] MEDS: ISOSORBIDE MONO SR 30 MG TAB PO SCH (08:32)
[2019-04-02] MEDS: FUROSEMIDE 40 MG TABLET PO SCH ×2 (08:33→17:20)
[2019-04-02] MEDS: SPIRONOLACTONE 25 MG TABLET PO SCH ×2 (08:33→20:54)
[2019-04-02] MEDS: FAMOTIDINE 20 MG TAB PO SCH (08:34)
[2019-04-02] MEDS: POTASSIUM CL SA 10 MEQ TAB PO SCH ×2 (08:34→20:55)
[2019-04-02] MEDS: lisinopriL 20 MG TAB PO SCH (08:34)
--- NOTE | 2019-04-02 13:33 | P.PN ---
Subjective Date of Service: 04/02/19 Primary Care Provider: Dr. Griggs Chief Complaint: LE cellulitis The patient reports numbness in the right lower extremity. He states that his left lower extremity is also hypersensitive to touch. Physical Examination - Vital Signs Temperature: 96.9 F Blood Pressure: 121/70 Pulse: 51 Respirations: 18 Pulse Ox (%): 96 - Physical Exam General: In no apparent distress, Oriented x3 HEENT: Atraumatic, Mucous membr. moist/pink Respiratory: Clear to auscultation bilaterally, Normal air movement Cardiovascular: Regular rate/rhythm Gastrointestinal: Normal bowel sounds, Soft and benign, No tenderness Musculoskeletal: Other (Bilateral lower extremity lymphedema) Integumentary: Venous stasis ulcer (Bilateral lower extremities) Neurological: Normal gait, Normal speech, Normal strength at 5/5 x4 extr Other Physical/Emotional Findings: 03/24 still b/l LE swelling , MARTHA wrap insitu , less intense edema. 03/22-RLE with immense swelling, fetid smell, copious draining noted on the bedding, diffuse blistering and crack/broken skin. tenderness to palpation. LLE w/ drainage w/ clear fluid - Studies Medications List Reviewed: Yes Assessment And Plan - Current Problems (Diagnosis) (1) Cellulitis of lower extremity Current Visit: Yes Status: Acute (2) Chronic acquired lymphedema Onset Date: 01/12/17 Current Visit: No Status: Chronic (3) Diabetic neuropathy Current Visit: No Status: Chronic Qualifiers: Diabetes mellitus type: type 2 Diabetes mellitus complication detail: diabetic polyneuropathy Qualified Code(s): E11.42 - Type 2 diabetes mellitus with diabetic polyneuropathy (4) Morbid obesity Onset Date: 01/12/17 Current Visit: No Status: Chronic (5) Stasis dermatitis of both legs Onset Date: 01/12/17 Current Visit: No Status: Chronic (6) Type 2 diabetes mellitus Onset Date: 01/12/17 Current Visit: No Status: Chronic Qualifiers: Diabetes mellitus terminal make up operator insulin use: without terminal make up operator use Diabetes mellitus complication status: with skin complications Diabetes mellitus complication detail: with other skin complication Qualified Code(s): E11.628 - Type 2 diabetes mellitus with other skin complications - Plan I suspect patient's complaining of right lower extremity numbness is related to his diabetic neuropathy. Patient reports history of lumbar disk displacement from previous accident. Will obtain CT lumbar spine to evaluate for right lower extremity numbness. Continue current IV antibiotics as recommended by infectious disease. Social service department are assisting with disposition to the appropriate facility for IV antibiotic therapy. The patient has been declining LTAC placement. Continue Lasix and Aldactone for lower extremity lymphedema. Lymphedema wrap Wound care. Hydrocodone and tramadol p.r.n. for pain. He is on insulin sliding scale for glucose management. Physician Review: Patient Assessed, Agree with Above Assessment and Plan
--- NOTE | 2019-04-02 14:16 | RAD REPORT ---
EXAM DESCRIPTION: CT - Spine Lumbar W/Cont - 04/02/2019 2:07 pm CLINICAL HISTORY: Radiculopathy. Right lower extremity Numbness COMPARISON: Low Extremity Wo Cont dated 03/22/2019; Chest Single View dated 03/28/2019 TECHNIQUE: Axial contrast-enhanced CT imaging of the lumbar spine was performed with coronal and sag ittal re-formatted images. All CT scans are performed using dose optimization technique as appropriate and may include automated exposure control or mA/KV adjustment according to patient size. FINDINGS: No acute lumbar spine fracture seen. No aggressive marrow pattern or malalignment. Paraspinal tissues are normal in thickness. No paraspinal abscess or hematoma seen. Mild lower lumbar degenerative changes are present with bulging of disc material and facet hypertroph y. No pathologic post-contrast enhancement suspected. IMPRESSION: Moderate lower lumbar spondylosis is seen. No acute lumbar spine finding or pathologic enhancement seen.
[2019-04-02] MEDS: ENOXAPARIN 40 MG/0.4 ML SQ SCH (17:21)
--- NOTE | 2019-04-02 18:31 | RAD REPORT ---
EXAM DESCRIPTION: USExtrem Venous W Compress Bil04/02/2019 6:24 pm CLINICAL HISTORY: Leg swelling COMPARISON: 2018 FINDINGS: The common femoral, superficial femoral, popliteal and posterior tibial veins bilaterally are compressible and demonstrate augmentation. Doppler demonstrates good flow. IMPRESSION: No evidence of deep venous thrombosis involving either lower extremity.
--- NOTE | 2019-04-02 19:30 | PN ---
Subjective: Patient sitting in bed, not in any acute distress. Complains of numbness and pain in hi s right leg. Also concerned about swelling in his toes, especially 2nd and 3rd toe. Objective: Vital Signs: Temperature 96.9, pulse 51, respirations 18, blood pressure 121/70. Lungs: Basal crackles. Heart: S1 and S2 are regular. Soft, nontender. Bowel sounds present. Extremiti es: 3+ nonpitting edema. WBC 8.2, hemoglobin 15, platelets are 414. Chemistry shows sodium 137, potassium 4.4, chloride 106, bicarb 28, BUN 17, creatinine 0.7, glucose 133. Micro Data: Enterococcus faecalis in the urine done on 03/22. Assessment And Plan: Bilateral lower extremity lymphedema, right lower extremity stasis ulcer which has improved. Urinary tract infection, resolved. Patient is currently on cefazolin. We will contin ue antibiotic for 4 more days. We will follow the patient as needed. Can be switched to oral antibi otic on discharge. NF/MODL Voice ID: [id number] Report ID: [id number]
[2019-04-03] MEDS: CLINDAMYCIN INJ 600 MG in NA CHLORIDE 0.9% 50 ML IV SCH ×2 (00:19→09:34)
[2019-04-03] MEDS: CEFAZOLIN/SWI 1gm 1 GM/10 ML SYR IV SCH ×2 (00:19→09:03)
[2019-04-03] MEDS: MORPHINE 2 MG/ML SYR IV PRN (00:27)
[2019-04-03] MEDS: INSULIN -REGULAR HUMAN 50 UNIT/0.5 ML ML SQ SCH ×2 (07:30→11:30)
[2019-04-03] MEDS: IPRATROPIUM BROM 0.5MG/2.5ML NEB PRN (07:45)
[2019-04-03] MEDS: FORMOTEROL FUMARATE 20 MCG/2 ML VIAL.NEB IH SCH (07:45)
[2019-04-03] MEDS: FAMOTIDINE 20 MG TAB PO SCH (09:01)
[2019-04-03] MEDS: SPIRONOLACTONE 25 MG TABLET PO SCH (09:02)
[2019-04-03] MEDS: ISOSORBIDE MONO SR 30 MG TAB PO SCH (09:02)
[2019-04-03] MEDS: POTASSIUM CL SA 10 MEQ TAB PO SCH (09:02)
[2019-04-03] MEDS: lisinopriL 20 MG TAB PO SCH (09:03)
[2019-04-03] MEDS: FUROSEMIDE 40 MG TABLET PO SCH (09:03)
[2019-04-03] MEDS: LIDOCAINE 4% PATCH TOP SCH (09:04)
[2019-04-03 10:55] VITALS: O2SAT 94
--- NOTE | 2019-04-03 14:31 | P.DS ---
Admission Date: 03/23/19 Discharge Date: 04/03/19 Primary Care Provider: Dr. Griggs Disposition: ROUTINE DISCHARGE Discharge Condition: FAIR Reason for Admission: LE cellulitis Consultations: Infectious disease - Problems (1) Cellulitis of lower extremity Current Visit: Yes Status: Acute (2) Chronic acquired lymphedema Onset Date: 01/12/17 Current Visit: No Status: Chronic (3) Diabetic neuropathy Current Visit: No Status: Chronic Qualifiers: Diabetes mellitus type: type 2 Diabetes mellitus complication detail: diabetic polyneuropathy Qualified Code(s): E11.42 - Type 2 diabetes mellitus with diabetic polyneuropathy (4) Morbid obesity Onset Date: 01/12/17 Current Visit: No Status: Chronic (5) Stasis dermatitis of both legs Onset Date: 01/12/17 Current Visit: No Status: Chronic (6) Type 2 diabetes mellitus Onset Date: 01/12/17 Current Visit: No Status: Chronic Qualifiers: Diabetes mellitus detention insulin use: without adjunct faculty for medical terminology use Diabetes mellitus complication status: with skin complications Diabetes mellitus complication detail: with other skin complication Qualified Code(s): E11.628 - Type 2 diabetes mellitus with other skin complications Brief History of Present Illness: 58-year-old morbidly obese gentleman with a history diabetes chronic lower extremity lymphedema and hypertension presented to the emergency department with a complaint of increase bilateral lower extremity swelling, redness blistering and discharge from his right lower extremity which had been present for about 2 week. Patient was subsequently admitted for further management of lower extremity cellulitis. Hospital Course: He was treated with aggressive IV antibiotic therapy, IV Lasix and leg elevation. He had weeping sores especially on the right lower extremity. He received wound care with Devonte/lymphedema wrap. The lower extremity swelling improved with diuresis. He was seen by Dr. Duarte, and antibiotics later changed to clindamycin and cefazolin. With time the weeping sores got healed and on examination today the patient had no weeping sores on the lower extremities. His legs look dry, edema on both legs have significantly improved. He is able to ambulate on both legs with no issues. Dr. Duarte at this time recommended oral clindamycin for the next 5 days. IV Lasix was transitioned to his home dose oral Lasix 40 mg b.i.d. Patient is deemed clinically stable for discharge. He will follow with Dr. Duarte as an outpatient. Vital Signs/Physical Exam: Temp Pulse Resp BP Pulse Ox 97.8 F 69 17 131/63 96 04/03/19 12:00 04/03/19 12:00 04/03/19 12:00 04/03/19 12:04/03/19 12:00 General: Alert, In no apparent distress, Oriented x3, Obese Neck: Supple Respiratory: Clear to auscultation bilaterally, Normal air movement Cardiovascular: Regular rate/rhythm, Normal S1 S2 Gastrointestinal: Soft and benign, No tenderness Other Physical/Emotional Findings: 03/24 still b/l LE swelling , DEVONTE wrap insitu , less intense edema. 03/22-RLE with immense swelling, fetid smell, copious draining noted on the bedding, diffuse blistering and crack/broken skin. tenderness to palpation. LLE w/ drainage w/ clear fluid Laboratory Data at Discharge: WBC 8.2 K/uL (4.3-10.9) 04/02/19 04:37 Hgb 15.1 g/dL (13.6-17.9) 04/02/19 04:37 Hct 44.9 % (39.6-49.0) 04/02/19 04:37 Plt Count 214 K/uL (152-406) 04/02/19 04:37 PT 13.2 SECONDS (9.5-12.5) H 03/22/19 20:20 INR 1.12 03/22/19 20:20 APTT 27.7 SECONDS (24.3-36.9) 03/22/19 20:20 Sodium 137 mmol/L (136-145) 04/02/19 04:37 Potassium 4.4 mmol/L (3.5-5.1) 04/02/19 04:37 BUN 17 mg/dL (7-18) 04/02/19 04:37 Creatinine 0.72 mg/dL (0.55-1.3) 04/02/19 04:37 Glucose 133 mg/dL (74-106) H 04/02/19 04:37 Magnesium 1.8 mg/dL (1.8-2.4) 03/23/19 05:17 Total Bilirubin 0.7 mg/dL (0.2-1.0) 03/27/19 05:34 AST 20 U/L (15-37) 03/27/19 05:34 ALT 15 U/L (12-78) 03/27/19 05:34 Alkaline Phosphatase 120 U/L (45-117) H 03/27/19 05:34 Lipase 166 U/L (73-393) 03/22/19 20:20 Home Medications: Potassium Chloride [K-Dur] 20 meq PO DAILY 01/11/17 Furosemide [Lasix*] 40 mg PO BID 10/22/17 lisinopriL [Prinivil*] 20 mg PO DAILY 10/22/17 Arformoterol Tartrate [Brovana] 2 ml IH DAILY 06/25/18 Famotidine [Pepcid*] 1 tab PO DAILY 06/25/18 Isosorbide Mononitrate [Isosorbide Mononitrate ER] 1 tab PO DAILY 06/25/18 Spironolactone [Aldactone*] 1 tab PO BID 06/25/18 Clindamycin HCl [Cleocin HCl] 300 mg PO Q8H #15 capsule 04/03/19 Lidocaine 4% Patch [Lidoderm 5% Patch*] 1 patch TOP DAILY #30 patch 04/03/19 traMADol HCL [Ultram*] 50 mg PO Q6H PRN #30 tab 04/03/19 New Medications: Clindamycin HCl [Cleocin HCl] 300 mg PO Q8H #15 capsule Lidocaine 4% Patch [Lidoderm 5% Patch*] 1 patch TOP DAILY #30 patch traMADol HCL [Ultram*] 50 mg PO Q6H PRN #30 tab PRN Reason: Pain Scale 5-7 (Moderate) Diet: ADA Activity: Ad da Followup: Adislon Duarte MD [Primary Care Provider] - 1-2 Weeks Time spent managing pt's care (in minutes): 42
[2019-04-03 17:32] VITALS: BP 141/62; TEMP 97.5
--- NOTE | 2019-04-03 17:58 | PN ---
Subjective: Patient is lying in bed. No new acute event. Chart reviewed. Denies any headache, [place], vomiting, chest pain, abdominal pain, constipation, or diarrhea. The patient had a Doppler for DVT, which was negative and also lumbar spine CT, which was negative for any acute injury. Objective: Vital Signs: Temperature 97, pulse 69, respirations 17, blood pressure 131/63. Lungs: Basal crackles. Heart: S1, S2. Regular. Abdomen: Soft, nontender. Extremities: Lower extremity, 3+ nonpitting edema. No open wounds noted. Assessment And Plan: Stasis dermatitis and cellulitis, improved. No more stasis ulcer. We will sta rt patient on clindamycin 300 mg p.o. q.8 hours for 7 days. Follow the patient as needed. [facility] [place]. BJORN Voice ID: [id number] Report ID: [id number]
== END 2019-04-03 15:44 | disposition home or self-care (01) | DRG 603 ==
LOC: ER 19:13 → 2ND 03-23 03:24
PROVIDERS: ADMIT Internal Medicine; ATTEND Internal Medicine
DX: L03.115 Cellulitis of right lower limb (principal); I50.32 Chronic diastolic (congestive) heart failure; Z68.43 Body mass index [BMI] 50.0-59.9, adult; E11.42 Type 2 diabetes mellitus with diabetic polyneuropathy; E11.628 Type 2 diabetes mellitus with other skin complications; I11.0 Hypertensive heart disease with heart failure; E66.01 Morbid (severe) obesity due to excess calories; I87.2 Venous insufficiency (chronic) (peripheral); J44.9 Chronic obstructive pulmonary disease, unspecified; I89.0 Lymphedema, not elsewhere classified; I25.2 Old myocardial infarction
CPT/HCPCS: 36415; 71045; 72132; 73700; 80048; 80053; 80076; 81003; 81015; 82550; 82553; 82947; 83036; 83605; 83690; 83735; 84145; 84443; 84484; 85025; 85027; 85610; 85652; 85730; 86140; 86850; 86900; 86901; 87040; 87077; 87086; 87088; 87186; 93005; 93306; 93970; 94660; 94760; 96361; 96365; 99285; J0690; J1650; J1940; J2270; J7030; Q9967

== ENCOUNTER 2019-10-31 17:58 | Emergency (ER) | payer OTHER ==
[2019-10-31 18:55] LABS: Absolute Lymphocytes (CBC) 1.3 K/uL (0.7-4.9); Basophils % 0.8 % (0-1.3); Hematocrit 49.3 % (39.6-49.0); Lymphocytes % 11.9 % (15.3-44.8); MPV 9.7 fL (7.6-11.3); RBC Red Blood Cell Count 5.41 M/uL (4.33-5.43)
[2019-10-31 19:04] LABS: ALT/SGPT 36 U/L (12-78); AST/SGOT 53 U/L (15-37); Albumin 2.7 g/dL (3.4-5.0); Alkaline Phosphatase 339 U/L (45-117); BUN Blood Urea Nitrogen 8 mg/dL (7-18); Bicarbonate 27 mmol/L (21-32); Bilirubin Direct 0.8 mg/dL (0-0.2); Bilirubin Total 1.4 mg/dL (0.2-1.0); Glucose Level 209 mg/dL (74-106); Lipase 96 U/L (73-393); Potassium 4.1 mmol/L (3.5-5.1); Protein, Total 8.4 g/dL (6.4-8.2); Sodium Level 137 mmol/L (136-145)
--- NOTE | 2019-10-31 19:25 | RAD REPORT ---
EXAM DESCRIPTION: CT - Abdomen Pelvis W Contrast - 10/31/2019 6:58 pm CLINICAL HISTORY: ABD PAIN, right-sided abdominal pain, nausea and vomiting, prior appendectomy and cholecystectomy COMPARISON: No comparisons TECHNIQUE: Biphasic, helical CT imaging of the abdomen and pelvis was performed following 100 ml non -ionic IV contrast. No oral contrast given. All CT scans are performed using dose optimization technique as appropriate and may include automated exposure control or mA/KV adjustment according to patient size. FINDINGS: Multiple small noncalcified pulmonary nodules are present in the lower lung ojeda. No ple ural effusion. No cardiomegaly or pericardial effusion. Liver is grossly abnormal. There is a nodular liver contour present. Left lobe and caudate lobe are r elatively prominent compared to the right. Numerous variably sized low-density lesions are scattered throughout the liver. Splenomegaly is present to a 17 centimeter craniocaudal dimension. No focal spl enic lesions. Cholecystectomy clips are present. No biliary tree dilatation. Pancreas is grossly abnormal. There is a 6-7 centimeter masslike fullness to the pancreatic tail. The mass is centrally hypodense. A few small lymph nodes are seen in the adjacent peripancreatic fatty t issues. Pancreatic duct is not dilated. Symmetric renal function is seen with no hydronephrosis or suspicious renal mass. No pyelonephritis o r acute parenchymal process. No bladder abnormalities. No adrenal abnormalities. Numerous calcificati ons are seen in the prostate gland. No dilated bowel loops or bowel wall thickening. No free air, free fluid or inflammatory stranding. No hernia, mass or bulky lymphadenopathy. No suspicious bony findings. IMPRESSION: Grossly abnormal study. A 6-7 centimeter pancreatic tail mass is present. Cirrhotic appe aring liver shows multiple low-density masses scattered throughout the hepatic parenchyma. There are multiple noncalcified pulmonary nodules in the lower lung ojeda. Most likely etiology is metastatic pancreatic malignancy. No bowel obstruction, free air or surgically emergent finding.
[2019-10-31] MEDS ORDERED: ONDANSETRON 4 MG/2 ML VIAL ONE (19:53)
[2019-10-31] MEDS ORDERED: NA CHLORIDE 0.9% 1,000 ML ONE (19:53)
[2019-10-31] MEDS ORDERED: MORPHINE 4 MG/ML SYR ONE (19:53)
--- NOTE | 2019-10-31 19:58 | EDPHYS ---
Physician Documentation [facility] Name: Juan J Lin Age: 59 yrs Sex: Male : 1960 Arrival Date: 10/31/2019 Time: 18:00 Bed 5 Private MD: ED Physician Michael Parker HPI: 10/30 19:54 This 59 yrs old Male presents to ER via Wheelchair with complaints of kb Abdominal Pain, Nausea/Vomiting. 19:54 The patient presents with abdominal pain in the right upper quadrant. Onset: The kb symptoms/episode began/occurred 10 day(s) ago. The symptoms do not radiate. Associated signs and symptoms: Pertinent positives: nausea, vomiting, and diarrhea, Pertinent negatives: fever. The symptoms are described as constant. Modifying factors: The symptoms are alleviated by nothing, the symptoms are aggravated by nothing. Severity of pain: At its worst the pain was moderate in the emergency department the pain is unchanged. The patient has not experienced similar symptoms in the past. The patient has not recently seen a physician. Pt reports upper abd pain, n/v/d that started 10 days ago. . Historical: - Allergies: 18:19 Anesthesia- combative reaction; ca1 18:19 Vancomycin; ca1 - PMHx: 18:19 cardiomegaly; Hypertension; CHF; Myocardial infarction; ca1 18:22 Lymphedema; aa5 - PSHx: 18:19 Appendectomy; Cholecystectomy; ca1 - Immunization history:: Adult Immunizations up to date. - Social history:: Smoking status: Patient denies any tobacco usage or history of. ROS: 19:53 Constitutional: Negative for fever, chills, and weight loss, Neck: Negative for injury, kb pain, and swelling, Cardiovascular: Negative for chest pain, palpitations, and edema, Respiratory: Negative for shortness of breath, cough, wheezing, and pleuritic chest pain, Back: Negative for injury and pain, MS/Extremity: Negative for injury and deformity, Skin: Negative for injury, rash, and discoloration, Neuro: Negative for headache, weakness, numbness, tingling, and seizure. 19:53 Abdomen/GI: Positive for abdominal pain, nausea, vomiting, and diarrhea, Negative for constipation, abdominal cramps, abdominal distension, anorexia. Exam: 19:53 Constitutional: This is a well developed, well nourished patient who is awake, alert, kb and in no acute distress. Head/Face: Normocephalic, atraumatic. Chest/axilla: Normal chest wall appearance and motion. Nontender with no deformity. No lesions are appreciated. Cardiovascular: Regular rate and rhythm with a normal S1 and S2. No gallops, murmurs, or rubs. Normal PMI, no JVD. No pulse deficits. Respiratory: Lungs have equal breath sounds bilaterally, clear to auscultation and percussion. No rales, rhonchi or wheezes noted. No increased work of breathing, no retractions or nasal flaring. Skin: Warm, dry with normal turgor. Normal color with no rashes, no lesions, and no evidence of cellulitis. MS/ Extremity: Pulses equal, no cyanosis. Neurovascular intact. Full, normal range of motion. Neuro: Awake and alert, GCS 15, oriented to person, place, time, and situation. Cranial nerves II-XII grossly intact. Motor strength 5/5 in all extremities. Sensory grossly intact. Cerebellar exam normal. Normal gait. 19:53 Abdomen/GI: Inspection: obese Bowel sounds: normal, in all quadrants, Palpation: nontender, in the left upper quadrant, right lower quadrant and left lower quadrant, moderate abdominal tenderness, in the right upper quadrant. Vital Signs: 18:17 BP 150 / 80; Pulse 87; Resp 20 S; Temp 98.7(O); Pulse Ox 96% on R/A; Weight 202.76 kg ca1 (R); Height 5 ft. 10 in. (177.80 cm) (R); Pain 10/10; 19:12 BP 138 / 81; Pulse 80; Resp 18; Pulse Ox 100% on R/A; mg2 20:00 BP 138 / 81; Pulse 76; Resp 16; Temp 98.5; Pulse Ox 98% on R/A; rv 20:22 BP 124 / 70; Pulse 71; Resp 16; Pulse Ox 97% on R/A; rv 18:17 Body Mass Index 64.14 (202.76 kg, 177.80 cm) ca1 MDM: 18:21 Patient medically screened. kb 19:53 Data reviewed: vital signs, nurses notes. Data interpreted: Pulse oximetry: on room air kb is 100 %. Interpretation: normal. Counseling: I had a detailed discussion with the patient and/or guardian regarding: the historical points, exam findings, and any diagnostic results supporting the discharge/admit diagnosis, lab results, radiology results, the need for outpatient follow up, Oncology. ED course: Discussed pt condition and diagnostics with ERP. Recommends outpatient follow up. 10/30 18:33 Order name: Basic Metabolic Panel; Complete Time: 19:05 kb 10/30 18:33 Order name: CBC with Diff; Complete Time: 19:00 kb 10/30 18:33 Order name: Hepatic Function; Complete Time: 19:05 kb 10/30 18:33 Order name: Lipase; Complete Time: 19:05 kb 10/30 18:33 Order name: CT Abd/Pelvis - IV Contrast Only; Complete Time: 19:27 kb 10/30 19:08 Order name: CREATININE WHOLE BLOOD; Complete Time: 19:09 EDMS 10/30 18:33 Order name: IV Saline Lock; Complete Time: 18:46 kb 10/30 18:33 Order name: Labs collected and sent; Complete Time: 18:46 kb Administered Medications: 19:49 Drug: NS 0.9% 1000 ml Route: IV; Rate: 1000 ml; Site: right antecubital; mg2 21:05 Follow up: Response: No adverse reaction; IV Status: Completed infusion; IV Intake: mg2 1000ml 19:49 Drug: morphine 4 mg Route: IVP; Site: right antecubital; mg2 21:04 Follow up: Response: No adverse reaction; Marked relief of symptoms; RASS: Alert and mg2 Calm (0) 19:49 Drug: Zofran (Ondansetron) 4 mg Route: IVP; Site: right antecubital; mg2 21:04 Follow up: Response: No adverse reaction; Marked relief of symptoms mg2 Disposition: 10/31 07:04 Co-signature as Attending Physician, Michael Parker MD. rn Disposition: 10/31/19 19:58 Discharged to Home. Impression: Pancreatic Mass, Upper abdominal pain, unspecified. - Condition is Stable. - Discharge Instructions: Abdominal Pain, Adult, [id number]. - Prescriptions for Tylenol- Codeine #3 300-30 mg Oral Tablet - take 2 tablets by ORAL route every 6 hours As needed; 16 tablet. Zofran 4 mg Oral Tablet - take 1 tablet by ORAL route every 6 hours As needed; 20 tablet. - Medication Reconciliation Form, Thank You Letter, Antibiotic Education, Prescription Opioid Use form. - Follow up: Emergency Department; When: As needed; Reason: Worsening of condition. Follow up: Private Physician; When: 2 - 3 days; Reason: Recheck today's complaints, Continuance of care, Re-evaluation by your physician. - Notes: Call MD Wang tomorrow to schedule follow up. [phone] Signatures: Dispatcher [employer] EDMS Kari Brooks, STAINED GLASS INSTALLER-C STAINED GLASS INSTALLER-Ckb Michael Parker MD MD rn Calderon, Audri, RN RN aa5 Brendan Bah RN RN mg2 Mabel Merchant RN RN ca1 Corrections: (The following items were deleted from the chart) 10/30 21:05 19:58 10/31/2019 19:58 Discharged to Home. Impression: Pancreatic Mass; Upper abdominal mg2 pain, unspecified. Condition is Stable. Discharge Instructions: Abdominal Pain, Adult, [id number]. Prescriptions for Tylenol-Codeine #3 300-30 mg Oral Tablet - take 2 tablets by ORAL route every 6 hours As needed; 16 tablet, Zofran 4 mg Oral Tablet - take 1 tablet by ORAL route every 6 hours As needed; 20 tablet. and Forms are Medication Reconciliation Form, Thank You Letter, Antibiotic Education, Prescription Opioid Use. Follow up: Emergency Department; When: As needed; Reason: Worsening of condition. Follow up: Private Physician; When: 2 - 3 days; Reason: Recheck today's complaints, Continuance of care, Re-evaluation by your physician. kb
--- NOTE | 2019-10-31 19:58 | ER ---
Nurse's Notes [facility] Name: Juan J Lin Age: 59 yrs Sex: Male : 1960 Arrival Date: 10/31/2019 Time: 18:00 Bed 5 Private MD: Diagnosis: Pancreatic Mass;Upper abdominal pain, unspecified Presentation: 10/30 18:17 Chief complaint: Patient states: R sided abdominal pain x 10 days, N/V off and on. ca1 Constipation in the first 3 days, then soft stool after until today. Abdominal pain has increase in the past few days. Coronavirus screen: Proceed with normal triage. Patient denies a cough. Patient denies shortness of breath or difficulty breathing. Patient denies measured and/or subjective temperature greater than 100.4F prior to today's visit. Patient denies travel on a cruise ship or to a country the [facility] currently lists as an affected area. Patient denies contact with known and/or suspected case of COVID-19. Ebola Screen: Patient negative for fever greater than or equal to 101.5 degrees Fahrenheit, and additional compatible Ebola Virus Disease symptoms Patient denies exposure to infectious person. Patient denies travel to an Ebola-affected area in the 21 days before illness onset. No symptoms or risks identified at this time. Initial Sepsis Screen: Does the patient meet any 2 criteria? No. Patient's initial sepsis screen is negative. Does the patient have a suspected source of infection? No. Patient's initial sepsis screen is negative. Risk Assessment: Do you want to hurt yourself or someone else? Patient reports no desire to harm self or others. Onset of symptoms was October 31, 2019. 18:17 Method Of Arrival: Wheelchair ca1 18:17 Acuity: CHARLIE 3 ca1 Historical: - Allergies: 18:19 Anesthesia- combative reaction; ca1 18:19 Vancomycin; ca1 - PMHx: 18:19 cardiomegaly; Hypertension; CHF; Myocardial infarction; ca1 18:22 Lymphedema; aa5 - PSHx: 18:19 Appendectomy; Cholecystectomy; ca1 - Immunization history:: Adult Immunizations up to date. - Social history:: Smoking status: Patient denies any tobacco usage or history of. Screenin:40 Abuse screen: Denies threats or abuse. Nutritional screening: No deficits noted. aa5 Tuberculosis screening: No symptoms or risk factors identified. Fall Risk None identified. Assessment: 18:15 General: Appears uncomfortable, Behavior is calm, cooperative. Pain: Complains of pain aa5 in right upper quadrant Pain does not radiate. Pain currently is 10 out of 10 on a pain scale. Quality of pain is described as sharp, Is continuous. Neuro: Level of Consciousness is awake, alert, obeys commands, Oriented to person, place, time, situation. Cardiovascular: Patient's skin is warm and dry. Lymphedema to miguel legs. . Respiratory: Airway is patent Respiratory effort is even, unlabored, Respiratory pattern is regular, symmetrical, Denies cough, shortness of breath. GI: Abdomen is obese, Bowel sounds present X 4 quads. Abdomen is tender to palpation in right upper quadrant Reports diarrhea, nausea, vomiting. : No signs and/or symptoms were reported regarding the genitourinary system. EENT: No signs and/or symptoms were reported regarding the EENT system. Derm: Skin is pink, warm \T\ dry. Musculoskeletal: Range of motion: intact in all extremities. 18:48 Reassessment: Pt to CT via wheelchair. . aa5 19:11 General: Appears in no apparent distress. comfortable, Behavior is calm, cooperative. mg2 Pain: Complains of pain in abdomen and right upper quadrant Pain currently is 10 out of 10 on a pain scale. Neuro: Level of Consciousness is awake, alert, obeys commands, Oriented to person, place, time, situation. GI: Reports upper abdominal pain, nausea, vomiting. : No signs and/or symptoms were reported regarding the genitourinary system. EENT: No signs and/or symptoms were reported regarding the EENT system. Derm: Skin is intact, is healthy with good turgor, Skin is pink, warm \T\ dry. normal. Musculoskeletal: Circulation, motion, and sensation intact. Capillary refill < 3 seconds. 20:01 Reassessment: RICHELLE ORTIZ TALKED TO THE PATIENT AND EXPLAINED THE TEST RESULTS. rv 21:03 Reassessment: Patient states feeling better. Patient states symptoms have improved. mg2 Vital Signs: 18:17 BP 150 / 80; Pulse 87; Resp 20 S; Temp 98.7(O); Pulse Ox 96% on R/A; Weight 202.76 kg ca1 (R); Height 5 ft. 10 in. (177.80 cm) (R); Pain 10/10; 19:12 BP 138 / 81; Pulse 80; Resp 18; Pulse Ox 100% on R/A; mg2 20:00 BP 138 / 81; Pulse 76; Resp 16; Temp 98.5; Pulse Ox 98% on R/A; rv 20:22 BP 124 / 70; Pulse 71; Resp 16; Pulse Ox 97% on R/A; rv 18:17 Body Mass Index 64.14 (202.76 kg, 177.80 cm) ca1 ED Course: 18:00 Patient arrived in ED. bp1 18:09 Ana Zamudio, RN is Primary Nurse. aa5 18:19 Triage completed. ca1 18:19 Arm band placed on right wrist. ca1 18:20 Patient has correct armband on for positive identification. Placed in gown. Bed in low aa5 position. Call light in reach. Side rails up X2. 18:21 [facility]-C [facility]. kb 18:21 Michael Parker MD is Attending Physician. kb 18:45 Initial lab(s) drawn, by me, sent to lab. Inserted saline lock: 20 gauge in right aa5 antecubital area, using aseptic technique. Blood collected. 18:58 CT Abd/Pelvis - IV Contrast Only In Process Unspecified. EDMS 19:03 Report given to MESFIN Umaña and MESFIN Cardona. aa5 19:12 No provider procedures requiring assistance completed. mg2 21:04 IV discontinued, intact, bleeding controlled, No redness/swelling at site. Pressure mg2 dressing applied. Administered Medications: 19:49 Drug: NS 0.9% 1000 ml Route: IV; Rate: 1000 ml; Site: right antecubital; mg2 21:05 Follow up: Response: No adverse reaction; IV Status: Completed infusion; IV Intake: mg2 1000ml 19:49 Drug: morphine 4 mg Route: IVP; Site: right antecubital; mg2 21:04 Follow up: Response: No adverse reaction; Marked relief of symptoms; RASS: Alert and mg2 Calm (0) 19:49 Drug: Zofran (Ondansetron) 4 mg Route: IVP; Site: right antecubital; mg2 21:04 Follow up: Response: No adverse reaction; Marked relief of symptoms mg2 Intake: 21:05 IV: 1000ml; Total: 1000ml. mg2 Outcome: 19:58 Discharge ordered by MD. garcia 21:04 Discharged to home via wheelchair. mg2 21:04 Condition: stable 21:04 Discharge instructions given to patient, Instructed on discharge instructions, follow up and referral plans. medication usage, Demonstrated understanding of instructions, follow-up care, medications, Prescriptions given X 2. 21:05 Patient left the ED. mg2 Signatures: Dispatcher [employer] EDDE Kari Brooks, ACCIDENT EXAMINER-C ACCIDENT EXAMINER-CkAna Mandujano, MESFIN RN aa5 Brendan Bah RN RN mg2 Leeroy Beltre RN RN rv Mayur, Mabel, RN RN ca1 Bárbara Morgan bp1
[2019-10-31 21:12] VITALS: TEMP 98.5
[2019-10-31 21:13] VITALS: BP 124/70; O2SAT 97
== END 2019-10-31 21:05 | disposition home or self-care (01) ==
LOC: ER 17:58
DX: K86.9 Disease of pancreas, unspecified (principal); I10 Essential (primary) hypertension; I25.2 Old myocardial infarction; Z88.3 Allergy status to other anti-infective agents; Z88.4 Allergy status to anesthetic agent
CPT/HCPCS: 96361; 85025; 80048; 36415; 82565; 80076; 83690; 74177; 96375; 96374; 99284; Q9967; J7030; J2405